=== PATIENT | female | born 1930 | race African-American/Black ===

== ENCOUNTER 2016-03-24 16:12 | Observation (INO) | payer OTHER ==
[~2016-03-24] VITALS: Ht 165.1 cm; Wt 48.8 kg
[~2016-03-24 16:12] MED LIST: ATOR40TA16 PO; CEPH-460 PO; CITA20TA4 PO; COUM2.5T PO; ENOX60P SQ; MIRTA15 PO
[2016-03-24 16:19] VITALS: BP 136/65; PULSE 90; RESP 18; TEMP 97.4; O2SAT 92
[2016-03-24] MEDS ORDERED: SODIUM CHLOR 0.9% 1000 ML INJ 1,000 ML IV SCH (16:21)
[2016-03-24] MEDS ORDERED: SODIUM CHLORIDE 0.9% FLUSH 5 ML FLUSH IVF PRN (16:30)
--- NOTE | 2016-03-24 16:48 | PD ---
HPI Chief Complaint: General Weakness Time Seen by Provider: 16:21 Travel History International Travel<30 days: No Contact w/Intl Traveler<30days: No Traveled to known affect area: No History of Present Illness HPI Patient is an 85-year-old female who presents to emergency room from hospice for medical evaluation of altered mental status. As per patient's family, patient was initially on hospice as patient was decompensating, was complaining of right wrist and right hip pain, reports that she was only given months to live but family concerned that patient is dehydrated and is living in pain and has increased altered mental status. Family reports that they were told that patient has a right wrist fracture as well as a right hip fracture which are inoperable at this time, reports that they were told that patient is too frail for surgical intervention. Reports that they are concerned as patient is rapidly decompensating in hospice, reports they "keep her sedated and that was not called for hospice." Family rescinding patient's hospice at this time, requested that everything be done for patient, requests that patient's DNR/DNI code status be respected. Reports concern as patient is very dehydrated and is not eating at this time. Reports that pt appears lethargic. Reports concern that patient was ambulating last week and now is bedbound. 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 As per medical records, patient was admitted to hospice since December 19, 2015 as she had been slowly declining. Reports that she eventually began hallucinating and had a near fall at home and since her son was having trouble caring for her, she was admitted to by [facility] on January 23, 2016 for management of symptoms. Patient returned to home on January 28, 2016 1 at that time she began to have increased right-sided weakness with pain to her right leg and right wrist. Patient had become nonambulatory at that time and was transferred to the care center (March 12 2016) for further management. Upon further review of records, hospice physician did talk to patient's son, Juan Manuel, as son concerned for pain to wrist and right femur. Hospice physician did review that patient most likely has a fracture to her right wrist which has been splinted appropriately, reports that she may also have a femur fracture which patient most likely is too frail to undergo any surgical intervention for this. Family this time would like to revoke hospice, request that patient be worked up for her hip pain and wrist pain. Would like to discuss with physicians if there are any surgical interventions that can be performed to make patient more comfortable. PFSH Past Medical History Hx Anticoagulant Therapy: Yes Arthritis: Yes Anxiety: No Depression: No Heart Rhythm Problems: No Cancer: No Cardiovascular Problems: Yes (HTN) High Cholesterol: Yes Chest Pain: No Congestive Heart Failure: No Cerebrovascular Accident: No Diabetes: Yes Patient Takes Glucophage: No Endocrine: Yes Gastrointestinal Disorders: No Genitourinary: No Headaches: No Hypertension: Yes Immune Disorder: No Implanted Vascular Access Dvce: No Musculoskeletal: Yes Neurologic: Yes Psychiatric: No Reproductive: No Respiratory: No Immunizations Current: Yes Migraines: No Seizures: No Thyroid Disease: No Triglycerides - High: Yes Past Surgical History Abdominal Surgery: Yes (appendectomy) Appendectomy: Yes Cardiac Surgery: No Ear Surgery: No Endocrine Surgery: No Eye Surgery: No Genitourinary Surgery: No Gynecologic Surgery: No Neurologic Surgery: No Oral Surgery: No Thoracic Surgery: No Other Surgery: Yes Social History Alcohol Use: No Tobacco Use: No Substance Use: No Allergies-Medications (Allergen,Severity, Reaction): Coded Allergies: Codeine (Verified Allergy, Severe, 12/18/15) Hydrocodone (Verified Allergy, Severe, 12/18/15) Lisinopril (Verified Allergy, Severe, ANGIOEDEMA, 12/18/15) Reported Meds & Prescriptions Reported Meds & Active Scripts Active Reported Sennosides 8.6 Mg Tab 8.6 Mg PO HS Warfarin 7.5 Mg Tab 7.5 Mg PO DAILY mon, fri Warfarin 5 Mg Tab 5 Mg PO DAILY sun, tu, wed, thur, sat Haloperidol 0.5 Mg Tab 0.25 Mg PO Q8HR Dicyclomine (Dicyclomine HCl) 10 Mg Cap 10 Mg PO QID Mirtazapine 15 Mg Tab 15 Mg PO HS Citalopram (Citalopram Hydrobromide) 20 Mg Tab 20 Mg PO DAILY Review of Systems ROS Limitations: Altered Mental Status Physical Exam Exam Limitations: Altered Mental Status, Poor Historian Narrative GENERAL: moderate distress SKIN: Warm and dry. HEAD: Atraumatic. Normocephalic. EYES: Pupils equal and round. No scleral icterus. No injection or drainage. ENT: No nasal bleeding or discharge. Mucous membranes dry and tacky NECK: Trachea midline. No JVD. CARDIOVASCULAR: Regular rate and rhythm. No murmur appreciated. RESPIRATORY: No accessory muscle use. Clear to auscultation. Breath sounds equal bilaterally. GASTROINTESTINAL: Abdomen soft, non-tender, nondistended. Hepatic and splenic margins not palpable. MUSCULOSKELETAL: No clubbing. No cyanosis. Patient with pain to right wrist, patient with pain with range of motion to right hip NEUROLOGICAL: Patient alert to person, overall confused PSYCHIATRIC: Patient confused Data Data Last Documented VS Vital Signs Date Time Temp Pulse Resp B/P Pulse Ox O2 Delivery O2 Flow Rate FiO2 03/24/16 16:55 90 Room Air 03/24/16 16:19 97.4 90 18 136/65 Orders Complete Blood Count With Diff (03/24/16 16:21) Comprehensive Metabolic Panel (03/24/16 16:21) Prothrombin Time / Inr (Pt) (03/24/16 16:21) Act Partial Throm Time (Ptt) (03/24/16 16:21) Urinalysis - C+S If Indicated (03/24/16 16:21) Iv Access Insert/Monitor (03/24/16 16:21) Ecg Monitoring (03/24/16 16:21) Oximetry (03/24/16 16:21) Sodium Chlor 0.9% 1000 Ml Inj (Ns 1000 M (03/24/16 16:21) Sodium Chloride 0.9% Flush (Ns Flush) (03/24/16 16:30) Electrocardiogram (03/24/16 16:21) B-Type Natriuretic Peptide (03/24/16 16:26) Hip, Uni(Ap&Lat) Wo Ap Pelvis (03/24/16 ) Femur (Ap & Lat/2vws) (03/24/16 ) Wrist, Complete ([id number]) (03/24/16 ) Ckmb (Isoenzyme) Profile (03/24/16 16:21) Troponin I (03/24/16 16:21) Chest, Single Ap (03/24/16 17:06) Urine Culture (03/24/16 16:45) Ct Brain W/O Iv Contrast(Rout) (03/24/16 17:30) Ceftriaxone Inj (Rocephin Inj) (03/24/16 17:45) Labs Laboratory Tests Test 03/24/16 03/24/16 16:45 16:47 Urine Collection Type CATH Urine Color YELLOW Urine Turbidity CLOUDY Urine pH 5.0 Urine Specific [place] 1.021 Urine Protein TRACE mg/dL Urine Glucose (UA) NEG mg/dL Urine Ketones NEG mg/dL Urine Occult Blood NEG Urine Nitrite NEG Urine Bilirubin NEG Urine Leukocyte Esterase NEG Urine WBC 3-5 /hpf Urine WBC Clumps RARE Urine Squamous Epithelial >8 /hpf Cells Urine Amorphous Sediment FEW Urine Bacteria FEW /hpf Urine Hyaline Casts 50-100 /lpf Urine Mucus FEW /lpf Microscopic Urinalysis Comment CULTURE INDICATED White Blood Count 12.9 TH/MM3 Red Blood Count 4.25 MIL/MM3 Hemoglobin 11.8 GM/DL Hematocrit 35.3 % Mean Corpuscular Volume 83.0 FL Mean Corpuscular Hemoglobin 27.8 PG Mean Corpuscular Hemoglobin 33.5 % Concent Red Cell Distribution Width 16.1 % Platelet Count 264 TH/MM3 Mean Platelet Volume 7.9 FL Neutrophils (%) (Auto) 70.1 % Lymphocytes (%) (Auto) 19.6 % Monocytes (%) (Auto) 6.8 % Eosinophils (%) (Auto) 0.9 % Basophils (%) (Auto) 2.6 % Neutrophils # (Auto) 9.1 TH/MM3 Lymphocytes # (Auto) 2.5 TH/MM3 Monocytes # (Auto) 0.9 TH/MM3 Eosinophils # (Auto) 0.1 TH/MM3 Basophils # (Auto) 0.3 TH/MM3 CBC Comment DIFF FINAL Differential Comment Prothrombin Time 20.5 SEC Prothromb Time International 1.8 RATIO Ratio Activated Partial 42.9 SEC Thromboplast Time Sodium Level 137 MEQ/L Potassium Level 4.6 MEQ/L Chloride Level 102 MEQ/L Carbon Dioxide Level 24.2 MEQ/L Anion Gap 11 MEQ/L Blood Urea Nitrogen 28 MG/DL Creatinine 1.10 MG/DL Estimat Glomerular Filtration 57 ML/MIN Rate Random Glucose 88 MG/DL Calcium Level 9.1 MG/DL Total Bilirubin 0.3 MG/DL Aspartate Amino Transf 15 U/L (AST/SGOT) Alanine Aminotransferase 12 U/L (ALT/SGPT) Alkaline Phosphatase 88 U/L Total Creatine Kinase 50 U/L Troponin I LESS THAN 0.02 NG/ML B-Type Natriuretic Peptide 14 PG/ML Total Protein 7.8 GM/DL Albumin 2.5 GM/DL MDM Medical Decision Making Medical Screen Exam Complete: Yes Emergency Medical Condition: Yes Interpretation(s) EKG at 1629: NSR at 89bpm, no st or t wave changes Differential Diagnosis PE, DVT, electrolyte abnormality, pneumonia, ACS, arrhythmia, wrist fracture, hip fracture, failure to thrive, pneumonia, DVT, intracranial hemorrhage, dehydration Narrative Course Patient is a 85-year-old female who was brought to the emergency room from hospice for evaluation of altered mental status. Patient's sons are revoking patient's hospice status, would like full workup for change in mental status. Request the patient remain a DNR/DNI status. Patient unable to provide history of present illness at this time, patient only complains of pain to her right hip. EKG ordered, patient was placed on a cardiac rehabilitation program director upon arrival to the emergency room. Labs as well as IV fluids ordered for patient as patient does appear dehydrated. X-rays of patient's right wrist and hip ordered for evaluation of possible fracture. case reviewed with Dr. Baron who accepts pt to service Diagnosis Primary Impression: Encephalopathy Additional Impressions: Failure to thrive in adult Dehydration UTI (urinary tract infection) Qualified Code: N30.01 - Acute cystitis with hematuria Gait instability Admitting Information Admitting Physician Requests: Chelsea Luna DO Mar 24, 2016 16:48
[2016-03-24 16:55] VITALS: O2SAT 90
[2016-03-24] MEDS ORDERED: WARF-23 PO (16:55)
[2016-03-24] MEDS ORDERED: HALO0.5T PO (16:55)
[2016-03-24] MEDS ORDERED: SENN8.6T81 PO (16:55)
[2016-03-24] MEDS ORDERED: WARF-21 PO (16:55)
[2016-03-24] MEDS ORDERED: DICY10CA12 PO (16:55)
[2016-03-24 16:58] LABS: AUTOMATED NEUTROPHIL # 9.1 TH/MM3 (1.8-7.7); BASOPHIL # 0.3 TH/MM3 (0-0.2); BASOPHIL % 2.6 % (0.0-2.0); EOSINOPHIL # 0.1 TH/MM3 (0-0.4); EOSINOPHIL % 0.9 % (0.0-4.0); HEMATOCRIT 35.3 % (35.0-46.0); HEMO FLAGS DIFF FINAL; LYMPH % 19.6 % (9.0-44.0); LYMPHOCYTE # 2.5 TH/MM3 (1.0-4.8); MEAN CORPUSCULAR HEMOGLOBIN 27.8 PG (27.0-34.0); MEAN CORPUSCULAR HGB CONC 33.5 % (32.0-36.0); MONO % 6.8 % (0.0-8.0); NEUT % 70.1 % (16.0-70.0); PLATELET COUNT 264 TH/MM3 (150-450); RED BLOOD COUNT 4.25 MIL/MM3 (4.00-5.30); RED CELL DISTRIBUTION WIDTH 16.1 % (11.6-17.2); WHITE BLOOD COUNT 12.9 TH/MM3 (4.0-11.0)
[2016-03-24 16:59] LABS: BLOOD, URINE NEG (NEG); GLUCOSE,URINE NEG (NEG); KETONE, URINE NEG (NEG); NITRITE,URINE NEG (NEG)
[2016-03-24 17:09] LABS: CHLORIDE 102 MEQ/L (98-107); POTASSIUM 4.6 MEQ/L (3.5-5.1); SODIUM (NA) 137 MEQ/L (136-145)
[2016-03-24 17:12] LABS: ANION GAP 11 MEQ/L (5-15); BICARBONATE 24.2 MEQ/L (21.0-32.0)
[2016-03-24 17:13] LABS: BLOOD UREA NITROGEN 28 MG/DL (7-18)
[2016-03-24 17:14] LABS: APTT (PATIENT) 42.9 SEC (24.3-30.1); INTERNATIONAL NORMALIZED RATIO 1.8 RATIO; PROTHROMBIN TIME - PATIENT 20.5 SEC (9.8-11.6)
[2016-03-24 17:15] LABS: ALT (GPT) 12 U/L (10-53); AST (GOT) 15 U/L (15-37)
[2016-03-24 17:16] LABS: GLOMERULAR FILTRATION RATE 57 ML/MIN (>89)
[2016-03-24 17:17] LABS: TOTAL BILIRUBIN ADULT 0.3 MG/DL (0.2-1.0)
[2016-03-24 17:18] LABS: METHOD OF COLLECTION CATH; URINE COLOR YELLOW (YELLW/STRAW)
[2016-03-24 17:18] LABS: ALKALINE PHOSPHATASE 88 U/L (45-117)
[2016-03-24 17:19] LABS: HYALINE CAST, URINE 50-100 /lpf (RARE); MUCUS URINE FEW /lpf (OCC)
[2016-03-24 17:20] LABS: CREATINE KINASE 50 U/L (26-192)
[2016-03-24 17:20] LABS: BACTERIA, URINE FEW /hpf; SQUAMOUS EPITHELIAL CELL URINE >8 /hpf (0-5)
[2016-03-24 17:21] LABS: COMMENT (UR) CULTURE INDICATED; CULTURE IF INDICATED CULTURE INDICATED
--- NOTE | 2016-03-24 17:34 | RADHPO ---
EXAM DATE/TIME: 03/24/2016 17:01 [facility] COMPARISON: No previous studies available for comparison. INDICATIONS : Right wrist pain after falling last week. MEDICAL HISTORY : Cardiovascular disease. Hypertension. Diabetes mellitus type 2. SURGICAL HISTORY : None. ENCOUNTER: Initial ACUITY: 1 week PAIN SCORE: 10/10 LOCATION: Right wrist. FINDINGS: AP, lateral and oblique views of the right wrist were obtained and demonstrate diffuse degenerative c hange involving the metacarpal carpal joint and intercarpal joints with sclerosis and narrowing. 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 There is no definite acute fracture o r malalignment. CONCLUSION: 1. No acute fracture or malalignment. 2. Diffuse degenerative changes and postsurgical change. Jay Engel MD on March 24, 2016 at 17:31 Board Certified Radiologist. This report was verified electronically.
--- NOTE | 2016-03-24 17:35 | RADHPO ---
EXAM DATE/TIME: 03/24/2016 17:05 [facility] COMPARISON: No previous studies available for comparison. INDICATIONS : Right hip pain after falling 1 week ago. MEDICAL HISTORY : Cardiovascular disease. Hypertension. Diabetes mellitus type 2. SURGICAL HISTORY : None. ENCOUNTER: Initial ACUITY: 1 week PAIN SCORE: 10/10 LOCATION: Right hip. FINDINGS: Two view examination of the right femur demonstrates no evidence of fracture or dislocation. Bony mi neralization is normal. There are mild degenerative changes in the medial and lateral compartments of the knee. The soft tissue structures are intact. CONCLUSION: 1. No acute fracture or malalignment. 2. Degenerative changes in the knee. Jay Engel MD on March 24, 2016 at 17:33 Board Certified Radiologist. This report was verified electronically.
[2016-03-24] MEDS ORDERED: cefTRIAXone INJ 1,000 MG in SODIUM CHLORIDE 0.9% INJ 100 ML IV ONE (17:45)
--- NOTE | 2016-03-24 17:52 | RADHPO ---
EXAM DATE/TIME: 03/24/2016 17:05 [facility] COMPARISON: FEMUR RIGHT (AP & LAT/2VWS), March 24, 2016, 17:05. INDICATIONS : Right hip pain after falling 1 week ago. MEDICAL HISTORY : Cardiovascular disease. Hypertension. Diabetes mellitus type 2. SURGICAL HISTORY : None. ENCOUNTER: Initial ACUITY: 1 week PAIN SCORE: 10/10 LOCATION: Right hip. FINDINGS: Oblique views of the right femur were obtained and demonstrate no definite fracture or malalignment. The acetabular and pubic rami are intact in appearance. There is diffuse osteopenia. CONCLUSION: Osteopenia with no evidence of acute fracture. Jay Engel MD on March 24, 2016 at 17:50 Board Certified Radiologist. This report was verified electronically.
--- NOTE | 2016-03-24 17:54 | RADHPO ---
EXAM DATE/TIME: 03/24/2016 17:34 [facility] COMPARISON: CHEST SINGLE AP, December 14, 2015, 19:19. INDICATIONS : Congestion for a week. MEDICAL HISTORY : Cardiovascular disease. Hypertension. Diabetes mellitus type 2. SURGICAL HISTORY : None. ENCOUNTER: Initial ACUITY: 1 week PAIN SCORE: 10/10 LOCATION: Bilateral chest FINDINGS: A single view of the chest demonstrates the lungs to be symmetrically aerated without evidence of mas s, infiltrate or effusion. The cardiomediastinal contours are unremarkable. Osseous structures are intact. A loop recorder is again projected over the left side of the chest. CONCLUSION: No acute disease. There is no evidence of pneumonia. Jay Engel MD on March 24, 2016 at 17:52 Board Certified Radiologist. This report was verified electronically.
[2016-03-24] MEDS ORDERED: hydrALAZINE HCL 20 MG/ML VIAL IV PUSH ONE (18:15)
[2016-03-24] MEDS ORDERED: NALOXONE HCL 0.4 MG/ML AMP IV PRN (18:30)
[2016-03-24] MEDS ORDERED: ACETAMINOPHEN 325 MG TAB PO PRN (18:30)
[2016-03-24] MEDS ORDERED: SODIUM CHLORIDE 0.9% FLUSH 5 ML FLUSH FLUSH PRN (18:30)
[2016-03-24] MEDS ORDERED: MORPHINE SULFATE 4 MG/ML INJ IV PRN (18:30)
[2016-03-24 19:00] VITALS: BP 119/57; PULSE 92; RESP 18; O2SAT 95
--- NOTE | 2016-03-24 19:03 | RADHPO ---
EXAM DATE/TIME: 03/24/2016 18:24 [facility] COMPARISON: CT BRAIN W/O CONTRAST, December 18, 2015, 1:35. INDICATIONS : Altered mental status. Weakness. RADIATION DOSE: 40.16 CTDIvol (mGy) MEDICAL HISTORY : Hypertension. Diabetes mellitus type 2. SURGICAL HISTORY : None. ENCOUNTER: Initial ACUITY: 1 day PAIN SCALE: 1/10 LOCATION: cranial TECHNIQUE: Multiple contiguous axial images were obtained of the head. Using automated exposure control and adj ustment of the mA and/or kV according to patient size, radiation dose was kept as low as reasonably a chievable to obtain optimal diagnostic quality images. FINDINGS: CEREBRUM: The ventricles are normal for age. No evidence of midline shift, mass lesion, hemorrhage or acute in farction. No extra-axial fluid collections are seen. There is decreased density in the cerebral whit e matter. POSTERIOR FOSSA: The cerebellum and brainstem are intact. The 4th ventricle is midline. The cerebellopontine angle i s unremarkable. EXTRACRANIAL: The visualized portion of the orbits is intact. There is mucosal disease of the maxillary sinuses roni aterally being worse on the left. SKULL: The calvaria is intact. No evidence of skull fracture. CONCLUSION: 1. No acute intracranial abnormality seen. 2. Suspected small vessel ischemic change in the white matter. 3. Maxillary sinus disease. Lavon Dean MD on March 24, 2016 at 18:59 Board Certified Radiologist. This report was verified electronically.
[2016-03-24] MEDS: SODIUM CHLORIDE 0.9% FLUSH 5 ML FLUSH FLUSH SCH (21:00)
[2016-03-24] MEDS: SODIUM CHLOR 0.9% 1000 ML INJ 1,000 ML IV SCH (21:23)
[2016-03-24] MEDS: LEVOFLOXACIN 750 MG PREMIX INJ 150 ML IV SCH (21:23)
[2016-03-24] MEDS: DOCUSATE SODIUM 100 MG CAP PO SCH (21:24)
[2016-03-24] MEDS: ENOXAPARIN SODIUM 40 MG/0.4 ML SYRINGE SQ SCH (21:24)
[2016-03-24 21:30] VITALS: BP 116/61; PULSE 94; RESP 18; O2SAT 95
[2016-03-24 22:50] VITALS: BP 116/64; PULSE 92; RESP 18; O2SAT 95
[2016-03-24 23:00] VITALS: BP 107/64; PULSE 95; RESP 26; TEMP 98.9; O2SAT 100
[2016-03-24] MEDS: MIRTAZAPINE 15 MG TAB PO SCH (23:35)
[2016-03-25 04:00] VITALS: BP 121/66; PULSE 86; RESP 20; TEMP 99.1; O2SAT 100
[2016-03-25 06:02] VITALS: PULSE 86
[2016-03-25 06:48] LABS: AUTOMATED NEUTROPHIL # 7.8 TH/MM3 (1.8-7.7); BASOPHIL # 0.2 TH/MM3 (0-0.2); BASOPHIL % 1.5 % (0.0-2.0); EOSINOPHIL # 0.1 TH/MM3 (0-0.4); EOSINOPHIL % 1.2 % (0.0-4.0); HEMO FLAGS DIFF FINAL; LYMPH % 16.2 % (9.0-44.0); LYMPHOCYTE # 1.7 TH/MM3 (1.0-4.8); MEAN CELL VOLUME 83.8 FL (80.0-100.0); MEAN CORPUSCULAR HEMOGLOBIN 27.9 PG (27.0-34.0); MEAN CORPUSCULAR HGB CONC 33.3 % (32.0-36.0); NEUT % 73.1 % (16.0-70.0); PLATELET COUNT 222 TH/MM3 (150-450); RED BLOOD COUNT 3.69 MIL/MM3 (4.00-5.30); RED CELL DISTRIBUTION WIDTH 15.8 % (11.6-17.2); WHITE BLOOD COUNT 10.6 TH/MM3 (4.0-11.0)
[2016-03-25 06:52] LABS: POTASSIUM 4.2 MEQ/L (3.5-5.1)
[2016-03-25 06:54] LABS: INTERNATIONAL NORMALIZED RATIO 2.3 RATIO; PROTHROMBIN TIME - PATIENT 26.4 SEC (9.8-11.6)
[2016-03-25 06:55] LABS: BICARBONATE 23.8 MEQ/L (21.0-32.0)
[2016-03-25 08:00] VITALS: BP 143/49; PULSE 88; RESP 17; TEMP 97.6; O2SAT 100
[2016-03-25] MEDS: CITALOPRAM HYDROBROMIDE 20 MG TAB PO SCH (09:30)
[2016-03-25] MEDS: DOCUSATE SODIUM 100 MG CAP PO SCH ×2 (09:30→21:32)
[2016-03-25] MEDS: SODIUM CHLORIDE 0.9% FLUSH 5 ML FLUSH FLUSH SCH ×2 (09:31→21:00)
[2016-03-25] MEDS: ENOXAPARIN SODIUM 40 MG/0.4 ML SYRINGE SQ SCH (09:31)
[2016-03-25] MEDS: SODIUM CHLOR 0.9% 1000 ML INJ 1,000 ML IV SCH ×2 (09:31→21:40)
[2016-03-25 12:00] VITALS: BP 136/62; PULSE 83; RESP 16; TEMP 98.1; O2SAT 98
--- NOTE | 2016-03-25 12:56 | PD.CONS ---
Consult Service Palliative Care . Consult Requested By Dr. Baron . Primary Care Physician No Primary Care Physician . Reason for Consultation a. To assist with evaluation and management of symptoms including: leg pain ; arm pain; delirium b. To assist medical decision maker(s) with: better understanding of current medical conditions; weighing benefits/burdens of medical treatment options; making medical treatment decisions. . HPI History of Present Illness Ms. 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 Ms. Benitez had been functioning at a fairly high level and was primarily independent up until August 2015. She was admitted to [facility] that month and found to have bilateral lower extremity cellulitis, lower extremity DVTs, sepsis, and acute renal failure. Since August 2015, the patient also had multiple admissions and emergency department visits secondary to syncopal episodes of uncertain etiology, dizziness, and falls without significant accompanying injuries. On 11/18/15 she was diagnosed with a pulmonary embolus. On emergency department visit of 12/18/15 for presyncope, she was diagnosed with the urinary tract infection and sent home the same day. The following day, on 12/19/15 she was enrolled with [facility] hospice. The patient has been declining slowly since hospice enrollment. Because of her history of DVTs and pulmonary embolus she had been on Coumadin. This was challenging to titrate. More recently she began hallucinatingshe would see rats and bugs and water on the ceiling. She had some near falls and her son, Juan Manuel, who is her primary caregiver, was having increasing trouble caring for her. On 01/23/16 she was admitted to the [facility]. Symptoms were managed there and she was returned back to her home on 01/28/16. On 03/22/16, the patient's son returned home to find the patient sitting on the edge of the bed as if she had fallen and was trying get back into the bed. She appeared to have some right sided weakness and complained of pain in her right wrist and in her right lower extremity. She had become nonambulatory because of the level of pain. Prior to this she had been able to ambulate with a cane and holding onto the andre. It was felt she must have fallen. The pain was severe enough that the tramadol she had been using to control pain at home was no longer adequate. When hospice was notified they offered to arrange for transportation to the emergency department to undergo imaging and further evaluation. Juan Manuel declined the offer . As she was now having difficulty manage pain, it was offered to move her to a hospice care Center. This offer was accepted. She was transferred back to the [facility]. Options for workup and treatment were discussed with the patient's sonJuan Manuel. Juan Manuel was told that the patient might have sustained fractures to both the lower extremity and the upper extremity. He was told that she was probably too frail to undergo and successfully recover from surgical repair. The hospice physician let him know that if the focus were to be on comfort care, she could remain in the care center until pain was managed. Once symptoms were controlled , she could be returned home, but she would probably not be ambulatory again. Juan Manuel agreed to keep her in the Care Center. The patient had a palliative performance score of 30 on admission to the care center. She was awake and verbal. Unfortunately she was quite painful with any touching of the right upper and lower extremity and would cry out with repositioning. She subsequently became agitated and would grimace and moan in anticipation of any movement. With the emphasis being on comfort, it was decided to premedicate her prior to major repositioning. A full right wrist splint was ordered and placed. The patient appeared far more comfortable on 03/24/16 but PPS had declined to 20. As movement was so painful for her, the patient's son Juan Manuel gave permission to insert a Corado catheter. On 03/24/16 the patient son Alex visited the patient in the Care Center as well as multiple other family members.. Alex also spoke with the hospice doctor. Alex did not understand what hospice was about and felt that his brother Juan Manuel had not explained this to him. Alex expressed concerns that the patient was painful and not eating enough. He was very concerned that she was being allowed to . Other family members arrived and all ultimately agreed that the patient should revoke hospice and go to the hospital for further evaluation and possibly aggressive care. Juan Manuel agreed and she was sent to the [place] [facility]. She arrived in the ED at 1612. In the care center, the patient was on no scheduled sedating medications. She received 5-10 of oxycodone q 4 hours prn. Initial vital signs in the emergency department were as follows: Temperature 97.4; pulse 90; respiratory rate 18; blood pressure 136/65; pulse oximetry 92% on room air Physical examination by the emergency repair department supervisor revealed the following: Patient was in moderate distress. The patient appeared painful in the right wrist and with range of motion of the right hip. The patient was also confused. The exam was otherwise unremarkable. Initial diagnostic testing revealed the following: * CBC showed WBC 12.9; hemoglobin 11.8; platelet count 264 * Urinalysis showed 3-5 wbc's; rare clumps of WBCs; few bacteria; 50-100 hyaline casts. * Coagulation profile showed PT 20.5; INR 1.8; PTT 42.9 * Chemistry panel showed sodium 137; potassium 4.6; chloride 102; CO2 24.2; anion gap 11; BUN 28; creatinine 1.1; GFR 57; glucose 88; calcium 9.1 * Liver function testing showed total bilirubin 0.3; AST 15; ALT 12; alkaline phosphatase 88; total protein 7.8; albumin 2.5 * Cardiac serology showed total CK 50; troponin less than 0.02. * Right wrist x-ray showed no acute fracture or malalignment. Diffuse degenerative changes and postsurgical changes were noted. * Right hip x-ray showed osteopenia but no evidence of acute fracture. * Right femur x-ray showed no acute fracture or malalignment. Degenerative changes were noted in the knee. * Chest x-ray showed no acute disease. There was no evidence of pneumonia. * Head CT showed no acute intracranial abnormality. Small vessel ischemic changes were noted. There was also evidence of maxillary sinus disease. * Electrocardiogram shows normal sinus rhythm with a rate of 89. No significant ST-T wave changes. Since arrival at the emergency department the patient has been started on levofloxacin to treat a possible urinary tract infection. IV morphine is available for pain control but has not been used so far. She is being maintained on her warfarin. At time of my visit, the patient is quite lethargic. She will start to voice and exam but not awaken and open her eyes. She nodded yes when I asked if any of her family had visited. She would quickly drift off if not constantly engaged. She couldn't provide essentially no history. . Function/Cognitive Trajectory As noted above, patient has been under hospice care primarily at her home since December 2015. She has had a major decline since August 2015 when she initially had bilateral lower extremity cellulitis and DVTs. . Review of Systems ROS Limitations: Clinical Condition (patient is too lethargic to provide her own history. No family members currently available. Review of systems taken as well as possible from existing medical records.) Constitutional: COMPLAINS OF: Pain, Generalized weakness, DENIES: Fever, Dizziness Endocrine: DENIES: Polydipsia, Polyuria, Polyphagia Eyes: COMPLAINS OF: Vision loss (wears glasses) Ears, nose, mouth, throat: DENIES: Hearing loss, Oral lesions Respiratory: DENIES: Hemoptysis Cardiovascular: COMPLAINS OF: Syncope (multiple episodes of near syncope of unknown etiology), DENIES: Chest pain, Palpitations Musculoskeletal: COMPLAINS OF: Joint pain, DENIES: Neck pain Neurologic: COMPLAINS OF: Abnormal gait, DENIES: Headache, Paresthesias, Seizures Psychiatric: COMPLAINS OF: Depression, DENIES: Anxiety Other ROS: * Wears dentures * Falls Past Family Social History Coded Allergies: Codeine (Verified Allergy, Severe, STATES SWELLING, 03/24/16) Hydrocodone (Verified Allergy, Severe, SWELLING, 03/24/16) Lisinopril (Verified Allergy, Severe, ANGIOEDEMA, 12/18/15) Past Medical History * Recurrent syncope and presyncope of uncertain etiology * Hypercoagulable state -- patient has had both bilateral lower extremity DVTs in 08/2015 and a pulmonary embolus and 11/18/2015 * Urinary tract infections * Irritable bowel syndrome * Osteoarthritis * Hypertension * Type 2 diabetes mellitus * GERD * Stage III chronic kidney disease * Depression * Hyperlipidemia . Past Surgical History * Appendectomy * Bilateral wrist surgery . Reported Medications Prehospitalization medications in the hospice care center facility were as follows: * Citalopram 20 mg tablets; one by mouth daily * Dicyclomine 10 mg tablet; one by mouth 4 times daily * Haloperidol 0.5 mg tablet; one by mouth every 8 hours [id number] and 1- 2 mg by mouth every 4 hours as needed for agitation and hallucinations * Mirtazapine 15 mg tablet 1 by mouth at bedtime * Coumadin 5 mg daily except Wednesday and Wednesday when she takes 7.5 mg. * Senna S 2 tablets by mouth at bedtime scheduled and 1-2 by mouth daily as needed for constipation * Lorazepam 0.5-1 mg by mouth every 4 hours as needed for anxiety shortness of breath * Oxycodone 5-10 mg by mouth every 4 hours when necessary pain shortness of breath . Current Medications Medications (Trade) Dose Ordered Sig/Adrienne Route Start Time Stop Time Status Last Admin (NS 1000 ml Inj) 1,000 ml @ 70 mls/hr [id number] IV 03/24/16 18:19 03/25/16 09:31 (NS Flush) 2 ml UNSCH PRN FLUSH 03/24/16 18:30 (NS Flush) 2 ml BID FLUSH 03/24/16 21:00 03/25/16 09:31 (Tylenol) 650 mg Q4H PRN PO 03/24/16 18:30 (Colace) 100 mg Q12H PO 03/24/16 21:00 03/25/16 09:30 (Morphine Inj) 2 mg Q3H PRN IV 03/24/16 18:30 Naloxone HCl 0.4 mg 0.4 mg UNSCH PRN IV 03/24/16 18:30 Pharmacy Profile Note 0 ml @ 0 mls/hr UNSCH OTHER 03/24/16 18:30 (Levaquin 750 Mg Premix Inj) 150 ml @ 100 mls/hr Q24H IV 03/24/16 20:00 03/24/16 21:23 (CeleXA) 20 mg DAILY PO 03/25/16 09:00 03/25/16 09:30 (Remeron) 15 mg HS PO 03/24/16 21:00 03/24/16 23:35 (Coumadin) 5 mg DAILY@16 PO 03/25/16 16:00 . Family History * Mother of heart disease at age 56 * Health. Father is unknown . Substance Use Tobacco: No history of tobacco abuse Alcohol: No history of alcohol abuse Prescription med abuse: No known prescription drug abuse Illicits: No known use of illicits . Psychosocial History Ms. Benitez is originally from [place], [place]. She has an elementary school education. She is and has 3 sons. 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 She has been living locally with her son (Juan Manuel) and her grandson. . Spiritual/Cultural Factors Patient comes from a Mosque tradition. Cheondoism and spirituality are important to her. She accepted record changer assembler visits from the brimming machine operator. . Durable Power of Mri Supervisor: Copy in medical record Date completed: There is a community "DO NOT RESUSCITATE" order signed on 01/23/2016. There is a Durable Power of Mri Supervisor form signed on 06/06/15 and notarized on the same date. Though this DPOA does not specify health care decision making, it does specify health care decision making, but does give the authority "to make necessary arrangements for my care at any hospital, detention, or assisted living facility and to pay for such care, and to make advance arrangement for any and burial expenses." . Health Care Surrogate(s): No designated health care surrogate. Her DPOA, however is permitted "to make necessary arrangements for my care at any hospital, detention, or assisted living facility and to pay for such care, and to make advance arrangement for any and burial expenses." . Documented care wishes: DPOA for financial/legal affairs is son -- Juan Manuel. No written health care goals /preferences available. . Today's verbally stated goals: Patient is unable to verbally state her own goals and it is uncertain if she will be able to do so in the future. . Family/friends goals: Not available at this time. . Ethical and Legal Issues Patient is currently not capacitated to make her own health care decisions. Her son -- Juan Manuel -- has DPOA for financial and legal affairs and the documents says in entitles him "to make necessary arrangements for my care at any hospital , detention, or assisted living facility and to pay for such care, and to make advance arrangement for any and burial expenses." It does not specifically give him authority to make health care decisions for her. Without a specifically deisgniated surrogate or DPOA for health care , decision making would fall to the majority of the patient's adult children. . . Physical Exam Vital Signs Date Time Temp Pulse Resp B/P Pulse Ox O2 Delivery O2 Flow Rate FiO2 03/25/16 08:00 97.6 88 17 143/49 100 03/25/16 06:02 86 03/25/16 04:00 99.1 86 20 121/66 100 03/24/16 23:00 98.9 95 26 107/64 100 03/24/16 22:51 94 18 95 Nasal Cannula 2 03/24/16 22:50 92 18 116/64 95 03/24/16 21:30 94 18 116/61 95 03/24/16 19:00 92 18 119/57 95 Nasal Cannula 2 03/24/16 16:55 90 Room Air .03/24/16 16:19 97.4 90 18 136/65 92 03/24/16 03/25/16 19:00 07:00 Intake Total 1000 ml 60 ml Balance 1000 ml 60 ml Intake Oral 60 ml IV Total 1000 ml # Voids 2 # Bowel Movements 0 . Exam CONSTITUTIONAL/GENERAL: This is an adequately nourished patient, in no apparent distress. She is lethargic. She doesn't open her eyes for me. She has a few barely intelligible words as I try and speak with her. TUBES/LINES/DRAINS: NC 02; PIV left writs; Splint rodrigo wrist; wears glasses. SKIN: No jaundice, rashes, or lesions. Ecchymoses on upper extremities. No wounds seen anteriorly. Skin temperature appropriate. Not diaphoretic. HEAD: Atraumatic. Normocephalic. EYES: Pupils equal and round and reactive. Extraocular motions intact. No scleral icterus. No injection or drainage. Fundi not examined. ENT: Difficult to assess hearing given her lethargy. Nose without bleeding or purulent drainage. Throat without visible erythema, exudates, masses, or lesions. NECK: Trachea midline. Supple, nontender. No palpable thyroid enlargement or nodularity. CARDIOVASCULAR: Regular rate and rhythm without murmurs, gallops, or rubs. No JVD. Peripheral pulses symmetric. RESPIRATORY/CHEST: Symmetric, unlabored respirations. Clear to auscultation. Breath sounds equal bilaterally. No wheezes, rales, or rhonchi. GASTROINTESTINAL: Abdomen soft, non-tender, nondistended. No hepato-splenomegaly , or palpable masses. No guarding. Bowel sounds present. GENITOURINARY: Without palpable bladder distension. Corado catheter in place. MUSCULOSKELETAL: Extremities without clubbing, cyanosis, or edema. Grimaces and moans if I move right forearm/wrist of right lower extremity. No calf tenderness. No mottling. LYMPHATICS: No palpable cervical or supraclavicular adenopathy. NEUROLOGICAL:Lethargic. Arouses to voice/exam, but does not really open her eyes. Gives some yes/no responses. Speech mostly unintelligible. Motor and sensory grossly within normal limits. Not following commands. Cognitively sharp. Moves all extremities. PSYCHIATRIC: No obvious anxiety/depression. No apparent hallucinations or other psychotic thought process. . Diagnostic Tests Laboratory Laboratory Tests Test 03/24/16 03/24/16 03/25/16 16:45 16:47 06:30 Urine Collection Type CATH Urine Color YELLOW (YELLW/STRAW) Urine Turbidity CLOUDY (CLEAR) Urine pH 5.0 (5.0-8.5) Urine Specific [place] 1.021 (1.002-1.035) Urine Protein TRACE mg/dL (NEG-TRACE) Urine Glucose (UA) NEG mg/dL (NEG) Urine Ketones NEG mg/dL (NEG) Urine Occult Blood NEG (NEG) Urine Nitrite NEG (NEG) Urine Bilirubin NEG (NEG) Urine Leukocyte Esterase NEG (NEG) Urine WBC 3-5 /hpf (0-5) Urine WBC Clumps RARE (NONE) Urine Squamous Epithelial >8 /hpf (0-5) Cells Urine Amorphous Sediment FEW Urine Bacteria FEW /hpf (NONE) Urine Hyaline Casts 50-100 /lpf (RARE) Urine Mucus FEW /lpf (OCC) Microscopic Urinalysis Comment CULTURE INDICATED White Blood Count 12.9 TH/MM3 10.6 TH/MM3 (4.0-11.0) (4.0-11.0) Red Blood Count 4.25 MIL/MM3 3.69 MIL/MM3 (4.00-5.30) (4.00-5.30) Hemoglobin 11.8 GM/DL 10.3 GM/DL (11.6-15.3) (11.6-15.3) Hematocrit 35.3 % 31.0 % (35.0-46.0) (35.0-46.0) Mean Corpuscular Volume 83.0 FL 83.8 FL (80.0-100.0) (80.0-100.0) Mean Corpuscular Hemoglobin 27.8 PG 27.9 PG (27.0-34.0) (27.0-34.0) Mean Corpuscular Hemoglobin 33.5 % 33.3 % Concent (32.0-36.0) (32.0-36.0) Red Cell Distribution Width 16.1 % 15.8 % (11.6-17.2) (11.6-17.2) Platelet Count 264 TH/MM3 222 TH/MM3 (150-450) (150-450) Mean Platelet Volume 7.9 FL 7.6 FL (7.0-11.0) (7.0-11.0) Neutrophils (%) (Auto) 70.1 % 73.1 % (16.0-70.0) (16.0-70.0) Lymphocytes (%) (Auto) 19.6 % 16.2 % (9.0-44.0) (9.0-44.0) Monocytes (%) (Auto) 6.8 % (0.0-8.0) 8.0 % (0.0-8.0) Eosinophils (%) (Auto) 0.9 % (0.0-4.0) 1.2 % (0.0-4.0) Basophils (%) (Auto) 2.6 % (0.0-2.0) 1.5 % (0.0-2.0) Neutrophils # (Auto) 9.1 TH/MM3 7.8 TH/MM3 (1.8-7.7) (1.8-7.7) Lymphocytes # (Auto) 2.5 TH/MM3 1.7 TH/MM3 (1.0-4.8) (1.0-4.8) Monocytes # (Auto) 0.9 TH/MM3 0.8 TH/MM3 (0-0.9) (0-0.9) Eosinophils # (Auto) 0.1 TH/MM3 0.1 TH/MM3 (0-0.4) (0-0.4) Basophils # (Auto) 0.3 TH/MM3 0.2 TH/MM3 (0-0.2) (0-0.2) CBC Comment DIFF FINAL DIFF FINAL Differential Comment Prothrombin Time 20.5 SEC 26.4 SEC (9.8-11.6) (9.8-11.6) Prothromb Time International 1.8 RATIO 2.3 RATIO Ratio Activated Partial 42.9 SEC Thromboplast Time (24.3-30.1) Sodium Level 137 MEQ/L 141 MEQ/L (136-145) (136-145) Potassium Level 4.6 MEQ/L 4.2 MEQ/L (3.5-5.1) (3.5-5.1) Chloride Level 102 MEQ/L 108 MEQ/L (98-107) (98-107) Carbon Dioxide Level 24.2 MEQ/L 23.8 MEQ/L (21.0-32.0) (21.0-32.0) Anion Gap 11 MEQ/L (5-15) 9 MEQ/L (5-15) Blood Urea Nitrogen 28 MG/DL (7-18) 22 MG/DL (7-18) Creatinine 1.10 MG/DL 0.73 MG/DL (0.50-1.00) (0.50-1.00) Estimat Glomerular Filtration 57 ML/MIN (>89) 91 ML/MIN (>89) Rate Random Glucose 88 MG/DL 91 MG/DL (74-106) (74-106) Calcium Level 9.1 MG/DL 8.5 MG/DL (8.5-10.1) (8.5-10.1) Total Bilirubin 0.3 MG/DL (0.2-1.0) Aspartate Amino Transf 15 U/L (15-37) (AST/SGOT) Alanine Aminotransferase 12 U/L (10-53) (ALT/SGPT) Alkaline Phosphatase 88 U/L (45-117) Total Creatine Kinase 50 U/L (26-192) Troponin I LESS THAN 0.02 NG/ML (0.02-0.05) B-Type Natriuretic Peptide 14 PG/ML (0-100) Total Protein 7.8 GM/DL (6.4-8.2) Albumin 2.5 GM/DL (3.4-5.0) . Result Diagram: 03/25/1662903/25/16629 Microbiology Microbiology Date/Time Procedure Status Source Growth 03/24/16 16:45 Urine Culture Received Urine Catheterized Urine Pending Imaging Last Impressions Head CT 03/24/16 1730 Signed Impressions: Service Date/Time: Thursday, March 24, 2016 18:24 - CONCLUSION: 1. No acute intracranial abnormality seen. 2. Suspected small vessel ischemic change in the white matter. 3. Maxillary sinus disease. Lavon Dean MD Chest X-Ray 03/24/16 1706 Signed Impressions: Service Date/Time: Thursday, March 24, 2016 17:34 - CONCLUSION: No acute disease. There is no evidence of pneumonia. Jay Engel MD Wrist X-Ray 03/24/16 0000 Signed Impressions: Service Date/Time: Thursday, March 24, 2016 17:01 - CONCLUSION: 1. No acute fracture or malalignment. 2. Diffuse degenerative changes and postsurgical change. Jay Engel MD Hip X-Ray 03/24/16 0000 Signed Impressions: Service Date/Time: Thursday, March 24, 2016 17:05 - CONCLUSION: Osteopenia with no evidence of acute fracture. Jay Engel MD Femur X-Ray 03/24/16 0000 Signed Impressions: Service Date/Time: Thursday, March 24, 2016 17:05 - CONCLUSION: 1. No acute fracture or malalignment. 2. Degenerative changes in the knee. Jay Engel MD . Patient/Family Conference Present at Family Conference: None Assessment and Plan Disease Oriented Problem List: (1) Pain of right upper extremity Comment: Uncertain etiology. May have fallen. Imaging shows no fracture. Pain is severe enough that just touching it causes moaning/grimacing. (2) Lower extremity pain, right Comment: Uncertain etiology. May have fallen. Imaging shows no fracture. Pain is severe enough that just touching it causes moaning/grimacing. . . (3) Urinary tract infection Comment: Possible UTI. Cutl[place] pending. . 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 Currently on coumadin. . (5) Syncope Comment: History of recurrent syncope of uncertain etiology. . (6) Pre-syncope Comment: History of presyncope of uncertain etiology. . (7) Hypoalbuminemia (8) Hypertension (9) Diabetes mellitus Symptom Scale: (1) Pain of right upper extremity (2) Lower extremity pain, right 0-10 Scale: Unable to quantify (3) Delirium 0-10 Scale: Unable to quantify Pertinent Non-Medical Issues Psychosocial: Patient normally lives with her son Juan Manuel and her grandson. Apparently has good psychosocial support from extended family. Spiritual: Patient is Mosque. Cheondoism and spirituality are important to her. She accepted record changer assembler visits from the brimming machine operator. Legal: Patient has a DURABLE POWER OF DISABILITY MANAGER document. Her sonEileens designated as POA. The document does not specify healthcare decision-making. It does specify that the POA may make arrangements for her to be in hospital, nursing facility, etc. Ethical issues impacting care: Patient is currently incapacitated to make her own health care decisions. It is unclear if she will regain capacity to do so. . Important Contacts * Juan Manuel Benitez (son; financial/legal power of state attorney) [phone]; . Prognosis The patient had very significant decline from August 2015 to the present. The exact cause of this decline is uncertain. She has had multiple hospitalizations and emergency department visits. Her health during this period is been characterized by a hypercoagulable state with bilateral lower extremity DVTs and pulmonary embolus. She is also had recurrent syncope and presyncope of unknown etiology. The patient has been under hospice care since December 2015 and has declined under that care. The cause of the patient's right upper and lower extremity pain is uncertain. It is unclear if she fell. There are no fractures. Apparently there was also some new onset delirium. Workup in the hospital has been rather unremarkable. It is possible she has a urinary tract infection. It is certainly feasible with hydration and treatment of a urinary tract infection, that the patient will become more responsive. However, it is likely that the underlying causes contributing to the patient's decline over the past few months will continue. It is likely that she will continue to be painful. If goals are comfort oriented, I would continue to believe that is likely to come in less than 6 months. I am not certain aggressive care will change that prognosis. . Code Status: No Code Plan == CODE STATUS: No code == Decision-making; the patient is incapacitated currently to make her own health care decisions and it is unclear if she will regain that capacity. Her sonRonniehas legal/financial power of state attorney. The power of state attorney documentation, however, does not specify healthcare decision-making other than the authority to make arrangements for hospital care, detention care, etc. Juan Manuel had been making most of the health care decisions for the patient. Technically if there is no designated surrogate and no designated power of state attorney, healthcare decision-making would fall to the majority of her adult children. We will try and contact the family to better understand where future decisions will be coming from. == Goals medical treatment: Goals medical treatment are now also unclear. Patient had been under hospice care since December 2015 and her goals under the care were comfort oriented. The patient was in a hospice care Center after developing severe pain in the right upper and lower extremities and also having some hallucinations. Once multiple family members met there, a decision was made to seek more aggressive care and to revoke hospice. We will need to find out who the decision-makers are her for healthcare and talk to them so we better understand goals. == Pain; patient has the severe right upper and lower extremity pain. Etiology of this is unknown. No obvious fractures on radiographs. In the hospice care center, the pain did seem to have an element of allodynia and hyperalgesia. This can come sometimes from the opiates themselves. I agree with not scheduling any opiates at this time and watching her PRN needs.. If we do end up needing to schedule opiate analgesia, would consider methadone which is less likely to cause symptoms of opiate toxicity. == Delirium: The patient does indeed have a urinary tract infection, then delirium is likely due to the infection and should improve on antibiotic therapy. As noted above delirium could be due to opiates themselves. Should patient begin having hallucinations again or other signs of delirium, would recommend haloperidol as struggled first choice. Given her age I would recommend about 0.5 mg every 8 hours [id number] and 1-2 mg every 4 hours PRN agitated delirium. == A high priority is identifying decision-makers for this patient and better understanding goals. I will work on this. At any time the decision-makers decide that the most appropriate goals are essentially comfort oriented, patient would be welcome back under hospice care. == If family is hoping that patient will be ambulatory again once the extremity pain is better controlled, she will probably need [facility] work on physical therapy == Palliative care we'll continue to follow to help assist with symptom management and to further clarify goals of care as the case evolves. . Thank you for the opportunity to participate in the care of Ms. Benitez. . . Collaborating MD Comments To help prompt me to consider important information that might be impacting today's encounter and assessment, information from prior notes written by myself or my colleagues may have been "brought forward" into today's note. My signature on this note, however, is an attestation that I personally performed the exam, history, and/or decision-making noted today, and, unless otherwise indicated, the interactions with patient, family, and staff as well as the review of records all occurred today. I also attest that the listed assessment and stated plan reflect my best clinical judgment today based on the combination of historical information, prior notes, and today's exam/ interactions. When time spent is documented, it refers only to time spent today by the signer, or if indicated, combined time spent today by collaborating physician/nurse practitioner. . Attestation To help prompt me to consider important information that might be impacting today's encounter and assessment, information from prior notes written by myself or my colleagues may have been "brought forward" into today's note. My signature on this note, however, is an attestation that I personally performed the exam, history, and/or decision-making noted today, and, unless otherwise indicated, the interactions with patient, family, and staff as well as the review of records all occurred today. I also attest that the listed assessment and stated plan reflect my best clinical judgment today based on the combination of historical information, prior notes, and today's exam/ interactions. When time spent is documented, it refers only to time spent today by the signer, or if indicated, combined time spent today by collaborating physician/nurse practitioner. . Gustavo Serrano MD Mar 25, 2016 12:56
--- NOTE | 2016-03-25 15:24 | HHI.HP ---
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 History was obtained from discussing with the ER physician, as well as with Dr. Serrano who reviewed the hospice notes, as well as with discussion with the patient herself. The patient states that she has been having pain in her upper and lower extremity since the previous week and that she also has pain in her left shoulder and pain when she turns her neck. The patient has been on hospice for some months after multiple hospital visits including syncope/presyncope as well as DVTs and pulmonary embolism from relative immobility, as well as a decline and general weakness with weight loss. Her primary caregiver is her son Juan Manuel with whom she lives. The patient had a visit to the care center over January 2016 but improved and was discharged home. According to the hospice notes the patient was admitted to the hospice of the [facility] last week after the son came home and found her seated at the edge of the bed complaining of a lot of pain and unable to ambulate. At that point hospice had a discussion with the patient and Juan Manuel and it was decided to admit her to the care center. At the care center it was very difficult to control her pain is any slight movement would cause her pain. Apparently yesterday some other family members from out of town came to visit the patient and were concerned with her decreased mentation, not eating or drinking and wanted a workup of why she was having pain in the extremities. The patient was thus brought to the ER where x-rays of the right femur, and hip and right wrist were all negative for fracture. Head CT is negative for acute changes. Chest x-ray was negative for any acute process. Urinalysis was suspicious for infection. This was conveyed to the family by the ER physician. Decision was made for the patient to be admitted to the hospital for evaluation of the extremity pain. She was kept a DO NOT RESUSCITATE. The patient herself states that she has had a cough but denies any dyspnea or fever. She denies any dysuria. She denies knowing of any recent falls. There is currently no family at the bedside. Patient's mentation at this time seems clear. She is able to clearly tell me that she would like to get stronger and she would like to know what is causing the pain including getting a CT scan to evaluate for fracture that may not have been imaged on the x-rays. The patient states that she is comfortable as long as she is not moved. She states she was happy with her care at the [facility]. When I asked the patient regarding her CODE STATUS, the patient stated "I don't know." I explained in detail regarding CPR intubation and stated that at her age after suffering a cardiac event the chance of her having survival to any kind of reasonable neurologic recovery is slim to none. The patient continues to state I don't know" regarding her CODE STATUS. I then explained that if she is not sure she would by default be a full code. The patient stated that she was agreeable to this. 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 Type 2 diabetes Reported Medications Allergies Coded Allergies Type Severity Reaction Last Updated Verified Codeine Allergy Severe STATES SWELLING 03/24/16 Yes Hydrocodone Allergy Severe SWELLING 03/24/16 Yes Lisinopril Allergy Severe ANGIOEDEMA 12/18/15 Yes Active Scripts Medications Dose Route/Sig Days Date Category Dose Instructions Sennosides 8.6 Mg Tab 8.6 Mg PO HS 03/24/16 Reported Warfarin 7.5 Mg Tab 7.5 Mg PO DAILY 03/24/16 Reported mon, fri Warfarin 5 Mg Tab 5 Mg PO DAILY 03/24/16 Reported sun, tues, wed, th, sat Haloperidol 0.5 Mg Tab 0.25 Mg PO Q8HR 03/24/16 Reported Dicyclomine (Dicyclomine HCl) 10 Mg Cap 10 Mg PO QID 03/24/16 Reported Mirtazapine 15 Mg Tab 15 Mg PO HS 12/14/15 Reported Citalopram (Citalopram Hydrobromide) 20 Mg Tab 20 Mg PO DAILY 12/14/15 Reported Allergies: Coded Allergies: Codeine (Verified Allergy, Severe, STATES SWELLING, 03/24/16) Hydrocodone (Verified Allergy, Severe, SWELLING, 03/24/16) Lisinopril (Verified Allergy, Severe, ANGIOEDEMA, 12/18/15) Family History Reviewed and noncontributory Social History No alcohol tobacco or drug use Physical Exam Vital Signs Vital Signs Date Time Temp Pulse Resp B/P Pulse Ox O2 Delivery O2 Flow Rate FiO2 03/25/16 12:00 98.1 83 16 136/62 98 03/25/16 08:00 97.6 88 17 143/49 100 03/25/16 06:02 86 03/25/16 04:00 99.1 86 20 121/66 100 03/24/16 23:00 98.9 95 26 107/64 100 03/24/16 22:51 94 18 95 Nasal Cannula 2 03/24/16 22:50 92 18 116/64 95 03/24/16 21:30 94 18 116/61 95 03/24/16 19:00 92 18 119/57 95 Nasal Cannula 2 03/24/16 16:55 90 Room Air 03/24/16 16:19 97.4 90 18 136/65 92 Physical Exam GENERAL: Well-nourished, well-developed frail elderly female patient. SKIN: Warm and dry. HEAD: Normocephalic. EYES: No scleral icterus. No injection or drainage. NECK: Supple, trachea midline. No JVD or lymphadenopathy. CARDIOVASCULAR: Regular rate and rhythm without murmurs, gallops, or rubs. RESPIRATORY: Breath sounds equal bilaterally. No accessory muscle use. GASTROINTESTINAL: Abdomen soft, non-tender, nondistended. EXTREMITIES: She has trace edema of the right wrist. She is tender to palpation over the wrist and bilateral lower extremities. She is able to very weakly wiggle her toes and fingers for me. NEUROLOGICAL: Awake, alert, and oriented to place. The patient is not able to tell me the month accurately thinking it is February and could not recall the year however cognition seems clear. Nonfocal although neuro exam limited secondary to pain with movement. Laboratory Laboratory Tests Test 03/24/16 03/24/16 03/25/16 16:45 16:47 06:30 Urine Collection Type CATH Urine Color YELLOW Urine Turbidity CLOUDY Urine pH 5.0 Urine Specific [place] 1.021 Urine Protein TRACE Urine Glucose (UA) NEG Urine Ketones NEG Urine Occult Blood NEG Urine Nitrite NEG Urine Bilirubin NEG Urine Leukocyte Esterase NEG Urine WBC 3-5 Urine WBC Clumps RARE Urine Squamous Epithelial >8 Cells Urine Amorphous Sediment FEW Urine Bacteria FEW Urine Hyaline Casts 50-100 Urine Mucus FEW Microscopic Urinalysis Comment CULTURE INDICATED White Blood Count 12.9 10.6 Red Blood Count 4.25 3.69 Hemoglobin 11.8 10.3 Hematocrit 35.3 31.0 Mean Corpuscular Volume 83.0 83.8 Mean Corpuscular Hemoglobin 27.8 27.9 Mean Corpuscular Hemoglobin 33.5 33.3 Concent Red Cell Distribution Width 16.1 15.8 Platelet Count 264 222 Mean Platelet Volume 7.9 7.6 Neutrophils (%) (Auto) 70.1 73.1 Lymphocytes (%) (Auto) 19.6 16.2 Monocytes (%) (Auto) 6.8 8.0 Eosinophils (%) (Auto) 0.9 1.2 Basophils (%) (Auto) 2.6 1.5 Neutrophils # (Auto) 9.1 7.8 Lymphocytes # (Auto) 2.5 1.7 Monocytes # (Auto) 0.9 0.8 Eosinophils # (Auto) 0.1 0.1 Basophils # (Auto) 0.3 0.2 CBC Comment DIFF FINAL DIFF FINAL Differential Comment Prothrombin Time 20.5 26.4 Prothromb Time International 1.8 2.3 Ratio Activated Partial 42.9 Thromboplast Time Sodium Level 137 141 Potassium Level 4.6 4.2 Chloride Level 102 108 Carbon Dioxide Level 24.2 23.8 Anion Gap 11 9 Blood Urea Nitrogen 28 22 Creatinine 1.10 0.73 Estimat Glomerular Filtration 57 91 Rate Random Glucose 88 91 Calcium Level 9.1 8.5 Total Bilirubin 0.3 Aspartate Amino Transf 15 (AST/SGOT) Alanine Aminotransferase 12 (ALT/SGPT) Alkaline Phosphatase 88 Total Creatine Kinase 50 Troponin I LESS THAN 0.02 B-Type Natriuretic Peptide 14 Total Protein 7.8 Albumin 2.5 Date/Time Procedure Status Source Growth 03/24/16 16:45 Urine Culture - Preliminary Resulted Urine Catheterized Urine IMMATURE GROWTH - REINCUBATE Result Diagram: 03/25/16 0630 03/25/16 0630 Imaging Last Impressions Head CT 03/24/16 1730 Signed Impressions: Service Date/Time: Thursday, March 24, 2016 18:24 - CONCLUSION: 1. No acute intracranial abnormality seen. 2. Suspected small vessel ischemic change in the white matter. 3. Maxillary sinus disease. Lavon Dean MD Chest X-Ray 03/24/16 1706 Signed Impressions: Service Date/Time: Thursday, March 24, 2016 17:34 - CONCLUSION: No acute disease. There is no evidence of pneumonia. Jay Engel MD Wrist X-Ray 03/24/16 0000 Signed Impressions: Service Date/Time: Thursday, March 24, 2016 17:01 - CONCLUSION: 1. No acute fracture or malalignment. 2. Diffuse degenerative changes and postsurgical change. Jay Engel MD Hip X-Ray 03/24/16 0000 Signed Impressions: Service Date/Time: Thursday, March 24, 2016 17:05 - CONCLUSION: Osteopenia with no evidence of acute fracture. Jay Engel MD Femur X-Ray 03/24/16 0000 Signed Impressions: Service Date/Time: Thursday, March 24, 2016 17:05 - CONCLUSION: 1. No acute fracture or malalignment. 2. Degenerative changes in the knee. Jay Engel MD Assessment and Plan Assessment and Plan -Generalized pain -->Pain in the right lower extremity, right upper extremity, neck, left shoulder. No recent fall or trauma to explain the symptoms. x-rays of the right femur, and hip and right wrist were all negative for fracture. She does have trace edema of the right wrist and I will order a CT to rule out occult fracture. The patient states she does not have pain when she is not moved. -Acute encephalopathy secondary to pain medications, now resolved. Appears clear and competent to make her decisions. Holding sedating medications at this time until further goals of care can be elicited. -Pulmonary embolism with pulmonary infarct, DVT in the past year on Coumadin - continue Coumadin -Failure to thrive with weight loss and general weakness - was on hospice and I suspect due to her generalized pain and overall decline that she is not a rehabilitation candidate at a correction facility. The patient hopes that we will find something that is reversible and that she will be able to get stronger and get out of bed however she was unable to tolerate even passive range of motion with PT today. Continue Celexa and Remeron. Palliative care has been consulted to help assist with clarifying goals of care. I discussed the patient with Dr. Serrano. -Possible UTI. Follow-up urine culture and continue Levaquin. - Hypertension - currently normotensive will monitor blood pressure. -Osteoarthritis -Acute kidney injury, now resolved with IV fluids. 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 However glucose normal. With very little by mouth intake. Will hold off on sliding scale insulin for comfort. -CODE STATUS FULL CODE. The patient was not able to tell me what her CODE STATUS was despite signing DO NOT RESUSCITATE forms in the past. She stated "I don't know." The patient currently has goals of care wanting to find something reversible and get stronger and get out of bed. I explained in detail regarding CPR intubation and stated that at her age after suffering a cardiac event the chance of her having survival to any kind of reasonable neurologic recovery is slim to none. The patient continues to state I don't know" regarding her CODE STATUS. I then explained that if she is not sure she would by default be a full code. The patient stated that she was agreeable to this. The patient's status was changed from DO NOT RESUSCITATE to full code. Shanna Baron MD Mar 25, 2016 15:24
[2016-03-25 16:00] VITALS: BP 128/71; PULSE 79; RESP 17; TEMP 97.8; O2SAT 99
[2016-03-25] MEDS: WARFARIN SOD 5 MG TAB PO SCH (17:31)
[2016-03-25 20:00] VITALS: BP 140/58; PULSE 89; RESP 20; TEMP 98.2; O2SAT 100
[2016-03-25] MEDS: MIRTAZAPINE 15 MG TAB PO SCH (21:32)
[2016-03-25] MEDS: LEVOFLOXACIN 750 MG PREMIX INJ 150 ML IV SCH (21:33)
--- NOTE | 2016-03-25 23:03 | EKG ---
Date Performed: 03/24/2016 Time Performed: 16:29:04 PTAGE: 85 years EKG: Sinus rhythm Normal ECG PREVIOUS TRACING : 12/18/2015 02.02 DOCTOR: Theo Caba Interpretating Date/Time 03/25/2016 22:58:32
[2016-03-26] VITALS: BP 138/70; PULSE 90; RESP 20; TEMP 99.5; O2SAT 100
[2016-03-26] MEDS: DOCUSATE SODIUM 100 MG CAP PO SCH ×2 (09:00→22:16)
[2016-03-26] MEDS: CITALOPRAM HYDROBROMIDE 20 MG TAB PO SCH (09:00)
[2016-03-26] MEDS: SODIUM CHLORIDE 0.9% FLUSH 5 ML FLUSH FLUSH SCH ×2 (09:00→22:16)
[2016-03-26] MEDS ORDERED: ACETAMINOPHEN/HYDROcodone 325 MG/5 MG TAB PO PRN (10:00)
[2016-03-26 10:53] LABS: POTASSIUM 3.7 MEQ/L (3.5-5.1)
[2016-03-26 10:56] LABS: INTERNATIONAL NORMALIZED RATIO 2.7 RATIO; PROTHROMBIN TIME - PATIENT 31.3 SEC (9.8-11.6)
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
[2016-03-26] MEDS ORDERED: DEXAMETHASONE SOD PHOS 4 MG/ML VIAL IV PUSH ONE (11:15)
[2016-03-26] MEDS ORDERED: ACET325T PO (13:19)
--- NOTE | 2016-03-26 15:12 | HHI.HCPN ---
Reason for visit a. To assist with evaluation and management of symptoms including: leg pain ; arm pain; delirium b. To assist medical decision maker(s) with: better understanding of current medical conditions; weighing benefits/burdens of medical treatment options; making medical treatment decisions. . Subjective/Interval History On my arrival, patient is awake but clearly frightened. She tells me she doesn' t know where she is and tells me her son must be worried about her. I tried to reassure her and explain where she was and why, but she remained suspicious and ill at ease. She reports feeling sore "all over. She continues to have "bad pain" with movement or pressure in the right forearm or right proximal lower leg. Patient denies SOB. She says she has no appetite. Patient asked me to call he son. I called for her and there was no answer. Patient was quite clear that she wanted her son Juan Manuel to make her health care decisions if she is unable to do so. She said, "I have arranged for all that." I have spoken with Dr. Baron. Patient is being converted to PO antibiotics/ steroids/analgesics. Plan will be for discharge to snf which was son't request last night. Case management is awaiting authorization from [facility] for discharge to [facility]. Tmax 99.5; Other VS stable. INR 2.7. Chem WNL except Cl 108, BS 120. No new imaging. . Family/friend interactions No family at bedside. No answer when I attempted to call her son -- Juan Manuel. . Advance Directives Durable Power of Cardiovascular Invasive Specialist: Copy in medical record Advance Directive Specifics Date completed: There is a community "DO NOT RESUSCITATE" order signed on 01/23/2016. There is a Durable Power of Cardiovascular Invasive Specialist form signed on 06/06/15 and notarized on the same date. Though this DPOA does not specify health care decision making, it does specify health care decision making, but does give the authority "to make necessary arrangements for my care at any hospital, skilled nursing, or assisted living facility and to pay for such care, and to make advance arrangement for any and burial expenses." . Health Care Surrogate(s): No designated health care surrogate. Her DPOA, however is permitted "to make necessary arrangements for my care at any hospital, skilled nursing, or assisted living facility and to pay for such care, and to make advance arrangement for any and burial expenses." . Documented care wishes: DPOA for financial/legal affairs is son -- Juan Manuel. No written health care goals /preferences available. . Objective Vital Signs Date Time Temp Pulse Resp B/P Pulse Ox O2 Delivery O2 Flow Rate FiO2 03/26/16 00:00 99.5 90 20 138/70 100 03/25/16 20:00 98.2 89 20 140/58 100 Automatic Cuff 03/25/16 16:00 97.8 79 17 128/71 99 Intake & Output 03/26/16 03/26/16 07:00 19:00 Intake Total 824 ml Balance 824 ml Intake Oral 60 ml IV Total 764 ml # Voids 3 2 # Bowel Movements 0 . Physical Exam CONSTITUTIONAL/GENERAL: This is an adequately nourished patient. She appears quite frightened and anxious. She is awake and alert. She is able to tell me her son's phone number. TUBES/LINES/DRAINS: NC 02; peripheral IV; Splint rodrigo wrist; wears glasses. SKIN: No jaundice, rashes, or lesions. No wounds seen anteriorly. Skin temperature appropriate. Not diaphoretic. HEAD: Atraumatic. Normocephalic. EYES: Pupils equal and round. Extraocular motions intact. No scleral icterus. No injection or drainage. Fundi not examined. ENT: Appears to hear me fine. Nose without bleeding or purulent drainage. Throat without visible erythema, exudates, masses, or lesions. NECK: Trachea midline. Supple, CARDIOVASCULAR: Regular rate and rhythm without murmurs, gallops, or rubs. No JVD. Peripheral pulses symmetric. RESPIRATORY/CHEST: Symmetric, unlabored respirations. Clear to auscultation. Breath sounds equal bilaterally. No wheezes, rales, or rhonchi. GASTROINTESTINAL: Abdomen soft, non-tender, nondistended. No hepato-splenomegaly , or palpable masses. No guarding. Bowel sounds present. GENITOURINARY: Without palpable bladder distension. MUSCULOSKELETAL: Extremities without clubbing, cyanosis, or edema. Grimaces and moans if I move right forearm/wrist of right lower extremity. Greatest tendnerness is over proximal femur. No calf tenderness. No mottling. LYMPHATICS: Not examined. NEUROLOGICAL:Awake, alert, conversant. Able to tell me her son's phone number. Unsure how she ended up in the hospital and upset about it. PSYCHIATRIC: Frightened and anxious as she does not know how she ended up in the hospital and thinks her son must be looking for her. No apparent hallucinations or other delusions. . Diagnostic Tests Laboratory Laboratory Tests Test 03/24/16 03/24/16 03/25/16 03/26/16 16:45 16:47 06:30 10:35 Urine Collection Type CATH Urine Color YELLOW (YELLW/STRAW) Urine Turbidity CLOUDY (CLEAR) Urine pH 5.0 (5.0-8.5) Urine Specific [place] 1.021 (1.002-1.035) Urine Protein TRACE mg/dL (NEG-TRACE) Urine Glucose (UA) NEG mg/dL (NEG) Urine Ketones NEG mg/dL (NEG) Urine Occult Blood NEG (NEG) Urine Nitrite NEG (NEG) Urine Bilirubin NEG (NEG) Urine Leukocyte Esterase NEG (NEG) Urine WBC 3-5 /hpf (0-5) Urine WBC Clumps RARE (NONE) Urine Squamous Epithelial >8 /hpf (0-5) Cells Urine Amorphous Sediment FEW Urine Bacteria FEW /hpf (NONE) Urine Hyaline Casts 50-100 /lpf (RARE) Urine Mucus FEW /lpf (OCC) Microscopic Urinalysis Comment CULTURE INDICATED White Blood Count 12.9 TH/MM3 10.6 TH/MM3 (4.0-11.0) (4.0-11.0) Red Blood Count 4.25 MIL/MM3 3.69 MIL/MM3 (4.00-5.30) (4.00-5.30) Hemoglobin 11.8 GM/DL 10.3 GM/DL (11.6-15.3) (11.6-15.3) Hematocrit 35.3 % 31.0 % (35.0-46.0) (35.0-46.0) Mean Corpuscular Volume 83.0 FL 83.8 FL (80.0-100.0) (80.0-100.0) Mean Corpuscular Hemoglobin 27.8 PG 27.9 PG (27.0-34.0) (27.0-34.0) Mean Corpuscular Hemoglobin 33.5 % 33.3 % Concent (32.0-36.0) (32.0-36.0) Red Cell Distribution Width 16.1 % 15.8 % (11.6-17.2) (11.6-17.2) Platelet Count 264 TH/MM3 222 TH/MM3 (150-450) (150-450) Mean Platelet Volume 7.9 FL 7.6 FL (7.0-11.0) (7.0-11.0) Neutrophils (%) (Auto) 70.1 % 73.1 % (16.0-70.0) (16.0-70.0) Lymphocytes (%) (Auto) 19.6 % 16.2 % (9.0-44.0) (9.0-44.0) Monocytes (%) (Auto) 6.8 % (0.0-8.0) 8.0 % (0.0-8.0) Eosinophils (%) (Auto) 0.9 % (0.0-4.0) 1.2 % (0.0-4.0) Basophils (%) (Auto) 2.6 % (0.0-2.0) 1.5 % (0.0-2.0) Neutrophils # (Auto) 9.1 TH/MM3 7.8 TH/MM3 (1.8-7.7) (1.8-7.7) Lymphocytes # (Auto) 2.5 TH/MM3 1.7 TH/MM3 (1.0-4.8) (1.0-4.8) Monocytes # (Auto) 0.9 TH/MM3 0.8 TH/MM3 (0-0.9) (0-0.9) Eosinophils # (Auto) 0.1 TH/MM3 0.1 TH/MM3 (0-0.4) (0-0.4) Basophils # (Auto) 0.3 TH/MM3 0.2 TH/MM3 (0-0.2) (0-0.2) CBC Comment DIFF FINAL DIFF FINAL Differential Comment Prothrombin Time 20.5 SEC 26.4 SEC 31.3 SEC (9.8-11.6) (9.8-11.6) (9.8-11.6) Prothromb Time International 1.8 RATIO 2.3 RATIO 2.7 RATIO Ratio Activated Partial 42.9 SEC Thromboplast Time (24.3-30.1) Sodium Level 137 MEQ/L 141 MEQ/L 141 MEQ/L (136-145) (136-145) (136-145) Potassium Level 4.6 MEQ/L 4.2 MEQ/L 3.7 MEQ/L (3.5-5.1) (3.5-5.1) (3.5-5.1) Chloride Level 102 MEQ/L 108 MEQ/L 108 MEQ/L (98-107) (98-107) (98-107) Carbon Dioxide Level 24.2 MEQ/L 23.8 MEQ/L 24.0 MEQ/L (21.0-32.0) (21.0-32.0) (21.0-32.0) Anion Gap 11 MEQ/L (5-15) 9 MEQ/L (5-15) 9 MEQ/L (5-15) Blood Urea Nitrogen 28 MG/DL (7-18) 22 MG/DL (7-18) 11 MG/DL (7-18) Creatinine 1.10 MG/DL 0.73 MG/DL 0.68 MG/DL (0.50-1.00) (0.50-1.00) (0.50-1.00) Estimat Glomerular Filtration 57 ML/MIN (>89) 91 ML/MIN (>89) 99 ML/MIN (>89) Rate Random Glucose 88 MG/DL 91 MG/DL 120 MG/DL (74-106) (74-106) (74-106) Calcium Level 9.1 MG/DL 8.5 MG/DL 9.1 MG/DL (8.5-10.1) (8.5-10.1) (8.5-10.1) Total Bilirubin 0.3 MG/DL (0.2-1.0) Aspartate Amino Transf 15 U/L (15-37) (AST/SGOT) Alanine Aminotransferase 12 U/L (10-53) (ALT/SGPT) Alkaline Phosphatase 88 U/L (45-117) Total Creatine Kinase 50 U/L (26-192) Troponin I LESS THAN 0.02 NG/ML (0.02-0.05) B-Type Natriuretic Peptide 14 PG/ML (0-100) Total Protein 7.8 GM/DL (6.4-8.2) Albumin 2.5 GM/DL (3.4-5.0) . Result Diagram: 03/25/16 0630 03/26/16 1035 Microbiology Microbiology Date/Time Procedure Status Source Growth 03/24/16 16:45 Urine Culture - Final Complete Urine Catheterized Urine 50-100,000 CFU/ML MIXED GRAM POSITIVE... Imaging Last Impressions Head CT 03/24/16 1730 Signed Impressions: Service Date/Time: Thursday, March 24, 2016 18:24 - CONCLUSION: 1. No acute intracranial abnormality seen. 2. Suspected small vessel ischemic change in the white matter. 3. Maxillary sinus disease. Lavon Dean MD Chest X-Ray 03/24/16 1706 Signed Impressions: Service Date/Time: Thursday, March 24, 2016 17:34 - CONCLUSION: No acute disease. There is no evidence of pneumonia. Jay Engel MD Wrist X-Ray 03/24/16 0000 Signed Impressions: Service Date/Time: Thursday, March 24, 2016 17:01 - CONCLUSION: 1. No acute fracture or malalignment. 2. Diffuse degenerative changes and postsurgical change. Jay Engel MD Hip X-Ray 03/24/16 0000 Signed Impressions: Service Date/Time: Thursday, March 24, 2016 17:05 - CONCLUSION: Osteopenia with no evidence of acute fracture. Jay Engel MD Femur X-Ray 03/24/16 0000 Signed Impressions: Service Date/Time: Thursday, March 24, 2016 17:05 - CONCLUSION: 1. No acute fracture or malalignment. 2. Degenerative changes in the knee. Jay Engel MD . Assessment and Plan Disease Oriented Problem List: (1) Pain of right upper extremity Comment: Uncertain etiology. May have fallen. Imaging shows no fracture. Pain is severe enough that just touching it causes moaning/grimacing. (2) Lower extremity pain, right Comment: Uncertain etiology. May have fallen. Imaging shows no fracture. Pain is severe enough that just touching it causes moaning/grimacing. . . (3) Urinary tract infection Comment: Possible UTI. Cutlure pending. . 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 Currently on coumadin. . (5) Syncope Comment: History of recurrent syncope of uncertain etiology. . (6) Pre-syncope Comment: History of presyncope of uncertain etiology. . (7) Hypoalbuminemia (8) Hypertension (9) Diabetes mellitus Symptom Scale: (1) Pain of right upper extremity 0-10 Scale: Unable to quantify Comment: Not bothersome when left alone. Pain is severe when moved. Etiology unclear. . (2) Lower extremity pain, right 0-10 Scale: Unable to quantify Comment: Not bothersome when left alone. Pain is severe when moved. Etiology unclear. . (3) Delirium 0-10 Scale: Unable to quantify Comment: Probably multi-factorial. The patient appears to have a UTI which may be contributing. Also now in an unfamiliar environment. . Pertinent Non-Medical Issues Psychosocial: Patient normally lives with her son Juan Manuel and her grandson. Apparently has good psychosocial support from extended family. Spiritual: Patient is Gnosticism. Synagogue and spirituality are important to her. She accepted editorial assistant visits from the proofer apprentice. Legal: Patient has a DURABLE POWER OF AEROGRAPHER document. Her sonRonsamanthas designated as POA. The document does not specify healthcare decision-making. It does specify that the POA may make arrangements for her to be in hospital, nursing facility, etc. Patient has verbally told me she wants Juan Manuel Benitez to make her health care decisions if she is unable. Ethical issues impacting care: Patient is currently incapacitated to make her own health care decisions. It is unclear if she will regain capacity to do so. . Important Contacts * Juan Manuel Benitez (son; financial/legal power of admitted attorneys) [phone]; [phone] . Prognosis The patient had very significant decline from August 2015 to the present. The exact cause of this decline is uncertain. She has had multiple hospitalizations and emergency department visits. Her health during this period is been characterized by a hypercoagulable state with bilateral lower extremity DVTs and pulmonary embolus. She is also had recurrent syncope and presyncope of unknown etiology. The patient has been under hospice care since December 2015 and has declined under that care. The cause of the patient's right upper and lower extremity pain is uncertain. It is unclear if she fell. There are no fractures. Apparently there was also some new onset delirium. Workup in the hospital has been rather unremarkable. It is possible she has a urinary tract infection. It is certainly feasible with hydration and treatment of a urinary tract infection, that the patient will become more responsive. However, it is likely that the underlying causes contributing to the patient's decline over the past few months will continue. It is likely that she will continue to be painful. If goals are comfort oriented, I would continue to believe that is likely to come in less than 6 months. I am not certain aggressive care will change that prognosis. . Code Status: No Code Plan == CODE STATUS: No code == Decision-making; the patient is incapacitated currently to make her own health care decisions but she appears to be re-gaining capacity. Her son Karlaas legal/financial power of admitted attorneys. The power of admitted attorneys documentation, however, does not specify healthcare decision-making other than the authority to make arrangements for hospital care, skilled nursing care, etc. the patient has indicated that she wants Juan Manuel to make health care decisions as well. Juan Manuel had been making most of the health care decisions for the patient. == Goals medical treatment: Goals medical treatment were initially unclear. Patient had been under hospice care since December 2015 and her goals under the care were comfort oriented. The patient was in a hospice care Center after developing severe pain in the right upper and lower extremities and also having some hallucinations. Once multiple family members met there, a decision was made to seek more aggressive care and to revoke hospice. After speaking with son, Juan Manuel, he is quite clear that goals are aggressive short of resuscitation. He wants everything done to diagnose, treat, and prolong life. He does NOT want her on hospice upon discharge. == Pain; patient has the severe right upper and lower extremity pain. Etiology of this is unknown. No obvious fractures on radiographs. In the hospice care center, the pain did seem to have an element of allodynia and hyperalgesia. This can come sometimes from the opiates themselves but is now persisting off opiates. I agree with not scheduling any opiates at this time and watching her PRN needs. If pain persists at current levels , she may deserve repeat imaging to see if there might be visible callus formation at what might have been previously invisible small fracture sites. == Delirium: The patient does indeed have a urinary tract infection. Delirium is improving on antibiotics. Delirum probably also exacerbated by changing care environments -- home to care center to hospital. As noted above delirium could be due to opiates themselves. Should patient begin having hallucinations again or other signs of delirium, would recommend haloperidol as first choice. Given her age I would recommend about 0.5 mg every 8 hours around -the-clock and 1-2 mg every 4 hours PRN agitated delirium. == Though patient has verbally designated her son Juan Manuel as her health care surrogate, it would be good to get this in writing as soon as she is able to do so. In the meantime, we can accept her verbal designation. == Disposition: Juan Manuel is asking for skilled rehab. Case management is working on this. == Palliative care we'll continue to follow to help assist with symptom management and to further clarify goals of care as the case evolves. . Attestation To help prompt me to consider important information that might be impacting today's encounter and assessment, information from prior notes written by myself or my colleagues may have been "brought forward" into today's note. My signature on this note, however, is an attestation that I personally performed the exam, history, and/or decision-making noted today, and, unless otherwise indicated, the interactions with patient, family, and staff as well as the review of records all occurred today. I also attest that the listed assessment and stated plan reflect my best clinical judgment today based on the combination of historical information, prior notes, and today's exam/ interactions. When time spent is documented, it refers only to time spent today by the signer, or if indicated, combined time spent today by collaborating physician/nurse practitioner. . Gustavo Serrano MD Mar 26, 2016 15:12
[2016-03-26] MEDS: WARFARIN SOD 5 MG TAB PO SCH (16:00)
[2016-03-26 20:00] VITALS: BP 115/59; PULSE 79; PULSE 86; RESP 20; TEMP 99; O2SAT 98
[2016-03-26] MEDS: MIRTAZAPINE 15 MG TAB PO SCH (22:16)
[2016-03-26] MEDS: CEFUROXIME AXETIL 250 MG TAB PO SCH (22:16)
[2016-03-27] VITALS: BP 94/63; PULSE 79; RESP 20; TEMP 99.2; O2SAT 100
[2016-03-27 04:00] VITALS: BP 159/85; PULSE 95; RESP 20; TEMP 98.1; O2SAT 100
[2016-03-27 07:36] LABS: INTERNATIONAL NORMALIZED RATIO 2.5 RATIO; PROTHROMBIN TIME - PATIENT 29.2 SEC (9.8-11.6)
[2016-03-27 08:11] VITALS: BP 157/81; PULSE 78; RESP 18; TEMP 97.9; O2SAT 98
[2016-03-27] MEDS: CITALOPRAM HYDROBROMIDE 20 MG TAB PO SCH (09:00)
[2016-03-27] MEDS: SODIUM CHLORIDE 0.9% FLUSH 5 ML FLUSH FLUSH SCH ×2 (09:00→21:10)
[2016-03-27] MEDS: CEFUROXIME AXETIL 250 MG TAB PO SCH ×2 (09:00→21:09)
[2016-03-27] MEDS: DOCUSATE SODIUM 100 MG CAP PO SCH ×2 (09:00→21:09)
--- NOTE | 2016-03-27 15:14 | HHI.PR ---
Subjective Remarks The patient feels much improved today, the pain in her body has eased greatly. She was able to participate with physical therapy and get up to chair. She is in bright spirits today. Objective Vitals Vital Signs Date Time Temp Pulse Resp B/P Pulse Ox O2 Delivery O2 Flow Rate FiO2 03/27/16 08:11 97.9 78 18 157/81 98 03/27/16 04:00 98.1 95 20 159/85 100 Manual Cuff/Auscultation 03/27/16 00:00 99.2 79 20 94/63 100 03/26/16 20:00 79 03/26/16 20:00 99.0 86 20 115/59 98 I/O 03/26/16 03/26/16 03/26/16 03/27/16 03/27/16 03/27/16 07:00 15:00 23:00 07:00 15:00 23:00 Intake Total 764 ml 60 ml 0 ml 250 ml Balance 764 ml 60 ml 0 ml 250 ml Intake Oral 60 ml 250 ml IV Total 764 ml 0 ml 0 ml # Voids 2 2 1 2 2 # Bowel Movements 0 0 0 Result Diagram: 03/25/16 0630 03/26/16 1035 Objective Remarks GENERAL: Well-nourished, well-developed frail elderly female patient. SKIN: Warm and dry. HEAD: Normocephalic. EYES: No scleral icterus. No injection or drainage. NECK: Supple, trachea midline. No JVD or lymphadenopathy. CARDIOVASCULAR: Regular rate and rhythm without murmurs, gallops, or rubs. RESPIRATORY: Breath sounds equal bilaterally. No accessory muscle use. GASTROINTESTINAL: Abdomen soft, non-tender, nondistended. EXTREMITIES: She has trace edema of the right wrist. She is tender to palpation over the wrists b/l, and bilateral lower extremities. She is able to very weakly wiggle her toes and fingers for me. NEUROLOGICAL: Awake, alert, and oriented to place. cognition clear. Nonfocal although neuro exam limited secondary to pain with movement. A/P Assessment and Plan -Generalized pain --> seems to have resolved. initially pain was more on the right side then became generalized including both wrists, shoulder, bilateral lower legs. She may have some osteoarthritis. I did give her Decadron IV yesterday. Her total CK was not elevated. She is physically deconditioned and initially was not able to participate with physical therapy due to her pain. However today she was able to participate physical therapy and get up to chair. -Acute encephalopathy secondary to pain medications, now resolved. Appears clear and competent to make her decisions. 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 We are trying to get her into a nursing facility at this time. -Depression. Continue Celexa and Remeron. -Possible UTI. Urine culture with 10-50,000 mixed gram-positive colony forming units, probably contaminants. DC antibiotics. - Hypertension - currently normotensive will monitor blood pressure. -Acute kidney injury, now resolved with IV fluids. 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 However glucose normal. -CODE STATUS - DO NOT RESUSCITATE. Discharge Planning [facility] facility when arrangements made. Shanna Baron MD Mar 27, 2016 15:14
[2016-03-27 16:11] VITALS: BP 139/82; PULSE 81; RESP 18; TEMP 97.6; O2SAT 97
[2016-03-27] MEDS: WARFARIN SOD 5 MG TAB PO SCH (17:24)
[2016-03-27 20:01] VITALS: BP 158/83; PULSE 61; RESP 14; TEMP 98.1; O2SAT 97
[2016-03-27] MEDS: MIRTAZAPINE 15 MG TAB PO SCH (21:09)
[2016-03-28 00:01] VITALS: BP 139/71; PULSE 88; RESP 14; TEMP 98.1; O2SAT 95
[2016-03-28 08:13] LABS: INTERNATIONAL NORMALIZED RATIO 2.7 RATIO; PROTHROMBIN TIME - PATIENT 31.4 SEC (9.8-11.6)
[2016-03-28] MEDS: CITALOPRAM HYDROBROMIDE 20 MG TAB PO SCH (08:23)
[2016-03-28] MEDS: CEFUROXIME AXETIL 250 MG TAB PO SCH ×2 (08:23→19:52)
[2016-03-28] MEDS: DOCUSATE SODIUM 100 MG CAP PO SCH ×2 (08:23→19:52)
[2016-03-28] MEDS: SODIUM CHLORIDE 0.9% FLUSH 5 ML FLUSH FLUSH SCH ×2 (08:27→19:52)
[2016-03-28 08:52] VITALS: BP 88/68; PULSE 72; RESP 15; TEMP 97.3
[2016-03-28] MEDS ORDERED: SODIUM CHLOR 0.9% 250 ML INJ 250 ML IV ONE (10:45)
[2016-03-28 12:00] VITALS: BP 133/72; PULSE 65; RESP 20; TEMP 97.7; O2SAT 96
--- NOTE | 2016-03-28 13:40 | HHI.PR ---
Subjective Remarks Patient is doing well. She does have one episode of hypotension this morning which was asymptomatic. She states that her pain continues to improve daily. Is mainly located in her wrists bilaterally. Objective Vitals Vital Signs Date Time Temp Pulse Resp B/P Pulse Ox O2 Delivery O2 Flow Rate FiO2 03/28/16 08:52 97.3 72 15 88/68 03/28/16 04:09 03/28/16 00:01 98.1 88 14 139/71 95 03/27/16 20:01 98.1 61 14 158/83 97 03/27/16 16:11 97.6 81 18 139/82 97 I/O 03/27/16 03/27/16 03/27/16 03/28/16 03/28/16 03/28/16 07:00 15:00 23:00 07:00 15:00 23:00 Intake Total 0 ml 250 ml 320 ml Balance 0 ml 250 ml 320 ml Intake Oral 250 ml 320 ml IV Total 0 ml # Voids 2 2 0 1 # Bowel Movements 0 Result Diagram: 03/25/16 0630 03/26/16 1035 Objective Remarks GENERAL: Well-nourished, well-developed frail elderly female patient. SKIN: Warm and dry. HEAD: Normocephalic. EYES: No scleral icterus. No injection or drainage. NECK: Supple, trachea midline. No JVD or lymphadenopathy. CARDIOVASCULAR: Regular rate and rhythm without murmurs, gallops, or rubs. RESPIRATORY: Breath sounds equal bilaterally. No accessory muscle use. GASTROINTESTINAL: Abdomen soft, non-tender, nondistended. EXTREMITIES: She has trace edema of the right wrist. NEUROLOGICAL: Awake, alert, and oriented to place. cognition clear. Nonfocal. A/P Assessment and Plan -Generalized pain --> seems to have resolved. initially pain was more on the right side then became generalized including both wrists, shoulder, bilateral lower legs. She may have some osteoarthritis. I did give her Decadron IV yesterday. Her total CK was not elevated. She is physically deconditioned and initially was not able to participate with physical therapy due to her pain. However today she was able to participate physical therapy and get up to chair. -Acute encephalopathy secondary to pain medications, now resolved. Appears clear and competent to make her decisions. 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 We are trying to get her into a nursing facility at this time. -Depression. Continue Celexa and Remeron. -Possible UTI. Urine culture with 10-50,000 mixed gram-positive colony forming units, probably contaminants. DC antibiotics. - Hypertension - currently normotensive will monitor blood pressure. -Hypotension 1 this morning. We'll bolus 250 mL Anas and monitor blood pressure. -Acute kidney injury, now resolved with IV fluids. 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 However glucose normal. -CODE STATUS - DO NOT RESUSCITATE. Discharge Planning nursing facility when arrangements made. Shanna Baron MD Mar 28, 2016 13:40
[2016-03-28 16:00] VITALS: BP 131/76; PULSE 72; RESP 20; TEMP 97.6; O2SAT 97
[2016-03-28] MEDS: POLYETHYLENE GLYCOL 17 GM PKG PO PRN (17:11)
[2016-03-28] MEDS: WARFARIN SOD 5 MG TAB PO SCH (17:11)
[2016-03-28] MEDS: MIRTAZAPINE 15 MG TAB PO SCH (19:52)
[2016-03-28] MEDS: DOCUSATE SODIUM 50 MG/SENNA 8.6 MG TAB PO SCH (19:52)
[2016-03-28 20:01] VITALS: BP 153/84; PULSE 88; RESP 14; TEMP 99.1; O2SAT 96
[2016-03-29 00:23] VITALS: BP 140/66; PULSE 80; RESP 14; TEMP 98.9; O2SAT 94
[2016-03-29 07:00] LABS: AUTOMATED NEUTROPHIL # 7.5 TH/MM3 (1.8-7.7); BASOPHIL # 0.2 TH/MM3 (0-0.2); BASOPHIL % 1.9 % (0.0-2.0); EOSINOPHIL # 0.3 TH/MM3 (0-0.4); EOSINOPHIL % 2.6 % (0.0-4.0); HEMATOCRIT 36.9 % (35.0-46.0); HEMO FLAGS DIFF FINAL; LYMPHOCYTE # 1.8 TH/MM3 (1.0-4.8); MEAN CORPUSCULAR HEMOGLOBIN 27.2 PG (27.0-34.0); MEAN CORPUSCULAR HGB CONC 32.3 % (32.0-36.0); MONO % 4.7 % (0.0-8.0); NEUT % 72.8 % (16.0-70.0); PLATELET COUNT 311 TH/MM3 (150-450); RED BLOOD COUNT 4.39 MIL/MM3 (4.00-5.30); RED CELL DISTRIBUTION WIDTH 15.7 % (11.6-17.2); WHITE BLOOD COUNT 10.3 TH/MM3 (4.0-11.0)
[2016-03-29 07:08] LABS: INTERNATIONAL NORMALIZED RATIO 2.8 RATIO; PROTHROMBIN TIME - PATIENT 32.2 SEC (9.8-11.6)
[2016-03-29 07:09] LABS: POTASSIUM 3.6 MEQ/L (3.5-5.1)
[2016-03-29 07:14] LABS: BICARBONATE 23.4 MEQ/L (21.0-32.0)
[2016-03-29] MEDS: DOCUSATE SODIUM 100 MG CAP PO SCH ×2 (08:50→19:50)
[2016-03-29] MEDS: CITALOPRAM HYDROBROMIDE 20 MG TAB PO SCH (08:50)
[2016-03-29] MEDS: CEFUROXIME AXETIL 250 MG TAB PO SCH ×2 (08:50→19:50)
[2016-03-29] MEDS: DOCUSATE SODIUM 50 MG/SENNA 8.6 MG TAB PO SCH ×2 (08:50→19:50)
[2016-03-29] MEDS: SODIUM CHLORIDE 0.9% FLUSH 5 ML FLUSH FLUSH SCH ×2 (08:51→19:50)
[2016-03-29 08:58] VITALS: BP 147/80; PULSE 71; RESP 16; TEMP 97.3; O2SAT 95
[2016-03-29 12:39] VITALS: BP 141/72; PULSE 76; RESP 15; TEMP 98.5; O2SAT 94
--- NOTE | 2016-03-29 15:27 | HHI.PR ---
Subjective Remarks Patient is feeling well. BMP is within normal limits. The patient's IV fell out and the son does not want it replaced. We are still waiting for authorization for nursing facility. Objective Vitals Vital Signs Date Time Temp Pulse Resp B/P Pulse Ox O2 Delivery O2 Flow Rate FiO2 03/29/16 12:39 98.5 76 15 141/72 94 03/29/16 08:58 97.3 71 16 147/80 95 03/29/16 00:23 98.9 80 14 140/66 94 03/28/16 20:01 99.1 88 14 153/84 96 03/28/16 16:00 97.6 72 20 131/76 97 I/O 03/28/16 03/28/16 03/28/16 03/29/16 03/29/16 03/29/16 07:00 15:00 23:00 07:00 15:00 23:00 Intake Total 250 ml Balance 250 ml IV Total 250 ml # Voids 1 3 1 # Bowel Movements 0 1 Result Diagram: 03/29/16 0650 03/29/16 0650 Objective Remarks GENERAL: Well-nourished, well-developed frail elderly female patient. SKIN: Warm and dry. HEAD: Normocephalic. EYES: No scleral icterus. No injection or drainage. NECK: Supple, trachea midline. No JVD or lymphadenopathy. CARDIOVASCULAR: Regular rate and rhythm without murmurs, gallops, or rubs. RESPIRATORY: Breath sounds equal bilaterally. No accessory muscle use. GASTROINTESTINAL: Abdomen soft, non-tender, nondistended. EXTREMITIES: She has trace edema of the right wrist. NEUROLOGICAL: Awake, alert, and oriented to place. cognition clear. Nonfocal. A/P Assessment and Plan -Generalized pain --> seems to have resolved. initially pain was more on the right side then became generalized including both wrists, shoulder, bilateral lower legs. She may have some osteoarthritis. I did give her Decadron IV yesterday. Her total CK was not elevated. She is physically deconditioned and initially was not able to participate with physical therapy due to her pain. However today she was able to participate physical therapy and get up to chair. -Acute encephalopathy secondary to pain medications, now resolved. Appears clear and competent to make her decisions. 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 We are trying to get her into a nursing facility at this time. -Depression. Continue Celexa and Remeron. -Possible UTI. Urine culture with 10-50,000 mixed gram-positive colony forming units, probably contaminants. DC antibiotics. - Hypertension - currently normotensive will monitor blood pressure. -Acute kidney injury, now resolved with IV fluids. 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 However glucose normal. -CODE STATUS - DO NOT RESUSCITATE. Discharge Planning nursing facility when arrangements made. Shanna Baron MD Mar 29, 2016 15:27
[2016-03-29 16:00] VITALS: BP 146/83; PULSE 74; RESP 18; TEMP 98; O2SAT 95
[2016-03-29] MEDS: WARFARIN SOD 5 MG TAB PO SCH (16:59)
[2016-03-29] MEDS: POLYETHYLENE GLYCOL 17 GM PKG PO PRN (19:49)
[2016-03-29] MEDS: MIRTAZAPINE 15 MG TAB PO SCH (19:50)
[2016-03-30] VITALS: BP 176/89; PULSE 71; RESP 20; TEMP 97.5; O2SAT 96
[2016-03-30 06:48] LABS: INTERNATIONAL NORMALIZED RATIO 3.4 RATIO; PROTHROMBIN TIME - PATIENT 40.1 SEC (9.8-11.6)
[2016-03-30 08:00] VITALS: BP 151/76; PULSE 72; RESP 18; TEMP 98.8; O2SAT 95
[2016-03-30] MEDS: SODIUM CHLORIDE 0.9% FLUSH 5 ML FLUSH FLUSH SCH (08:26)
[2016-03-30] MEDS: DOCUSATE SODIUM 100 MG CAP PO SCH (08:26)
[2016-03-30] MEDS: CITALOPRAM HYDROBROMIDE 20 MG TAB PO SCH (08:26)
[2016-03-30] MEDS: CEFUROXIME AXETIL 250 MG TAB PO SCH (08:26)
[2016-03-30] MEDS: DOCUSATE SODIUM 50 MG/SENNA 8.6 MG TAB PO SCH (08:27)
--- NOTE | 2016-03-30 09:07 | HHI.PR ---
Subjective Remarks The patient endorses feeling mildly confused this morning. She thinks she is at work instead of a patient. She does remember me from yesterday and recognizes me as her physician. She states her right wrist is sore. Objective Vitals Vital Signs Date Time Temp Pulse Resp B/P Pulse Ox O2 Delivery O2 Flow Rate FiO2 03/30/16 08:00 98.8 72 18 151/76 95 03/30/16 00:00 97.5 71 20 176/89 96 03/29/16 16:00 98.0 74 18 146/83 95 03/29/16 12:39 98.5 76 15 141/72 94 I/O 03/29/16 03/29/16 03/29/16 03/30/16 03/30/16 03/30/16 07:00 15:00 23:00 07:00 15:00 23:00 Intake Total 620 ml Output Total 0 ml Balance 620 ml Intake Oral 620 ml Output Urine Total 0 ml # Voids 1 2 2 # Bowel Movements 1 0 1 Result Diagram: 03/29/16 0650 03/29/16 0650 Objective Remarks GENERAL: Well-nourished, well-developed frail elderly female patient. SKIN: Warm and dry. HEAD: Normocephalic. EYES: No scleral icterus. No injection or drainage. NECK: Supple, trachea midline. No JVD or lymphadenopathy. CARDIOVASCULAR: Regular rate and rhythm without murmurs, gallops, or rubs. RESPIRATORY: Breath sounds equal bilaterally. No accessory muscle use. GASTROINTESTINAL: Abdomen soft, non-tender, nondistended. EXTREMITIES: no edema. NEUROLOGICAL: Awake, alert, and oriented to self, no place. calm. speech clear. Nonfocal. A/P Assessment and Plan -Generalized pain --> seems to have resolved. 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 Pain now more located to right wrist, xrays negative of both wrists, shoulder, bilateral lower legs. She may have some osteoarthritis. S/p Decadron IV with improvement. Total CK was not elevated. Cont tylenol for pain. Cont PT. -Acute encephalopathy secondary to pain medications, now resolved. 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 We are trying to get her into a nursing facility at this time. -Depression. Continue Celexa and Remeron. -Possible UTI. Urine culture with 10-50,000 mixed gram-positive colony forming units, probably contaminants. DC antibiotics. - Hypertension - currently normotensive will monitor blood pressure. -Acute kidney injury, now resolved with IV fluids. 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 However glucose normal. -No IV access (fell out yesterday and son requested it not be replaced). -CODE STATUS - DO NOT RESUSCITATE. Discharge Planning nursing facility when arrangements made. Shanna Baron MD Mar 30, 2016 09:07
[2016-03-30 12:00] VITALS: BP 125/67; PULSE 74; RESP 16; TEMP 97.1; O2SAT 95
[2016-03-30 16:00] VITALS: BP 128/75; PULSE 86; RESP 18; TEMP 98.1; O2SAT 95
--- NOTE | 2016-03-31 09:14 | HHI.DS ---
Discharge Summary Admission Date Mar 24, 2016 at 18:10 Discharge Date: Mar 30, 2016 Admitting Diagnosis Encephalopathy, dehydration, uti, gait instability (1) Right hand pain ICD Code: M79.641 (2) Encephalopathy ICD Code: G93.40 (3) Failure to thrive in adult ICD Code: R62.7 (4) Gait instability ICD Code: R26.81 (5) Lower extremity pain, right ICD Code: M79.604 Procedures none Brief History - From Admission This is an 85-year-old -[place] female, very pleasant, with past medical history of DVTs, bilateral pulmonary embolism on Coumadin, hypertension, failure to thrive with weight loss over the past year who was brought to the ER last night from the hospice of the [facility] in [place] for evaluation of pain in the right upper and lower extremity as well as diminished by mouth intake. History was obtained from discussing with the ER physician, as well as with Dr. Serrano who reviewed the hospice notes, as well as with discussion with the patient herself. The patient states that she has been having pain in her upper and lower extremity since the previous week and that she also has pain in her left shoulder and pain when she turns her neck. The patient has been on hospice for some months after multiple hospital visits including syncope/presyncope as well as DVTs and pulmonary embolism from relative immobility, as well as a decline and general weakness with weight loss. Her primary caregiver is her son Juan Manuel with whom she lives. The patient had a visit to the care center over January 2016 but improved and was discharged home. According to the hospice notes the patient was admitted to the hospice of the [facility] last week after the son came home and found her seated at the edge of the bed complaining of a lot of pain and unable to ambulate. At that point hospice had a discussion with the patient and Juan Manuel and it was decided to admit her to the care center. At the care center it was very difficult to control her pain is any slight movement would cause her pain. Apparently yesterday some other family members from out of town came to visit the patient and were concerned with her decreased mentation, not eating or drinking and wanted a workup of why she was having pain in the extremities. The patient was thus brought to the ER where x-rays of the right femur, and hip and right wrist were all negative for fracture. Head CT is negative for acute changes. Chest x-ray was negative for any acute process. Urinalysis was suspicious for infection. This was conveyed to the family by the ER physician. Decision was made for the patient to be admitted to the hospital for evaluation of the extremity pain. She was kept a DO NOT RESUSCITATE. The patient herself states that she has had a cough but denies any dyspnea or fever. She denies any dysuria. She denies knowing of any recent falls. There is currently no family at the bedside. Patient's mentation at this time seems clear. She is able to clearly tell me that she would like to get stronger and she would like to know what is causing the pain including getting a CT scan to evaluate for fracture that may not have been imaged on the x-rays. The patient states that she is comfortable as long as she is not moved. She states she was [facility]. When I asked the patient regarding her CODE STATUS, the patient stated "I don't know." I explained in detail regarding CPR intubation and stated that at her age after suffering a cardiac event the chance of her having survival to any kind of reasonable neurologic recovery is slim to none. The patient continues to state I don't know" regarding her CODE STATUS. I then explained that if she is not sure she would by default be a full code. The patient stated that she was agreeable to this. CBC/BMP: 03/29/16 0650 03/29/16 0650 Significant Findings Laboratory Tests Test 03/29/16 03/30/16 06:50 05:20 Neutrophils (%) (Auto) 72.8 % (16.0-70.0) Prothrombin Time 32.2 SEC 40.1 SEC (9.8-11.6) (9.8-11.6) PE at Discharge GENERAL: Well-nourished, well-developed frail elderly female patient. SKIN: Warm and dry. HEAD: Normocephalic. EYES: No scleral icterus. No injection or drainage. NECK: Supple, trachea midline. No JVD or lymphadenopathy. CARDIOVASCULAR: Regular rate and rhythm without murmurs, gallops, or rubs. RESPIRATORY: Breath sounds equal bilaterally. No accessory muscle use. GASTROINTESTINAL: Abdomen soft, non-tender, nondistended. EXTREMITIES: no edema. NEUROLOGICAL: Awake, alert, and oriented to self, no place. calm. speech clear. Nonfocal. Hospital Course -Generalized pain --> seems to have resolved. 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 Pain now more located to right wrist, xrays negative of both wrists, shoulder, bilateral lower legs. She may have some osteoarthritis. S/p Decadron IV with improvement. Total CK was not elevated. Cont tylenol for pain. Cont PT. -Acute encephalopathy secondary to pain medications, now resolved. 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 -Depression. Continue Celexa and Remeron. -Possible UTI. Urine culture with 10-50,000 mixed gram-positive colony forming units, probably contaminants. DC antibiotics. - Hypertension - currently normotensive will monitor blood pressure. -Acute kidney injury, now resolved with IV fluids. 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 However glucose normal. -No IV access (fell out yesterday and son requested it not be replaced). -CODE STATUS - DO NOT RESUSCITATE. Patient discharged to nursing home facility [facility]. Pt Condition on Discharge: Stable Discharge Disposition: Discharge to SNF Discharge Time: <= 30 minutes Discharge Instructions DIET: Follow Instructions for: As Tolerated, No Restrictions Activities you can perform: Regular-No Restrictions New Medications: Acetaminophen (Acetaminophen) 325 Mg Tab 650 MG PO Q4H PRN pain #30 TAB Continued Medications: Citalopram (Citalopram) 20 Mg Tab 20 MG PO DAILY Control Depression #30 Ref 0 TAB Dicyclomine (Dicyclomine) 10 Mg Cap 10 MG PO QID Bowel Management Ref 0 CAP Mirtazapine (Mirtazapine) 15 Mg Tab 15 MG PO HS Depression Control #30 Ref 0 TAB Sennosides (Sennosides) 8.6 Mg Tab 8.6 MG PO HS Constipation Ref 0 TAB Warfarin (Warfarin) 5 Mg Tab 5 MG PO DAILY wed, , wed, , wed Blood Clot Prevention #30 Ref 0 TAB Warfarin (Warfarin) 7.5 Mg Tab 7.5 MG PO DAILY mon, fri Blood Clot Prevention #30 Ref 0 TAB Discontinued Medications: Haloperidol (Haloperidol) 0.5 Mg Tab 0.25 MG PO Q8HR Ref 0 TAB Shanna Baron MD Mar 31, 2016 09:14
== END 2016-03-30 18:40 ==
LOC: PHED 16:12 → PHEDA 18:10 → PH3A 22:28
PROVIDERS: ADMIT Family Medicine; ATTEND Family Medicine
DX: G92 Toxic encephalopathy (principal); T39.95XA Adverse effect of unspecified nonopioid analgesic, antipyretic and antirheumatic, initial encounter; M79.641 Pain in right hand; M79.604 Pain in right leg; N30.01 Acute cystitis with hematuria; E86.0 Dehydration; R62.7 Adult failure to thrive; R26.81 Unsteadiness on feet; I12.9 Hypertensive chronic kidney disease with stage 1 through stage 4 chronic kidney disease, or unspecified chronic kidney disease; N18.3 Chronic kidney disease, stage 3 (moderate); N17.9 Acute kidney failure, unspecified; E11.22 Type 2 diabetes mellitus with diabetic chronic kidney disease; D68.59 Other primary thrombophilia; E78.5 Hyperlipidemia, unspecified; F03.90 Unspecified dementia, unspecified severity, without behavioral disturbance, psychotic disturbance, mood disturbance, and anxiety; F32.9 Major depressive disorder, single episode, unspecified; E78.00 Pure hypercholesterolemia, unspecified; J32.0 Chronic maxillary sinusitis; K21.9 Gastro-esophageal reflux disease without esophagitis; K58.9 Irritable bowel syndrome, unspecified; M85.80 Other specified disorders of bone density and structure, unspecified site; M15.9 Polyosteoarthritis, unspecified; Z86.711 Personal history of pulmonary embolism; Z86.718 Personal history of other venous thrombosis and embolism; Z99.2 Dependence on renal dialysis; Z66 Do not resuscitate
CPT/HCPCS: 70450; 71010; 73110; 73502; 73552; 80048; 80053; 81001; 82550; 83880; 84484; 85025; 85610; 85730; 87086; 93005; 96361; 96374; 97110; 97116; 97162; 97530; 99285; G0378; G8987; G8988; J0360; J0696; J1650; J1956; J7030; J7050

== ENCOUNTER 2016-10-18 21:29 | Inpatient (IN) | payer OTHER, MEDICARE ==
[~2016-10-18 21:29] MED LIST changes: +ACET325T PO; -ATOR40TA16 PO; -CEPH-460 PO; -COUM2.5T PO; +DICY10CA12 PO; -ENOX60P SQ; +SENN8.6T81 PO; +WARF-21 PO; +WARF-23 PO
[2016-10-18 21:54] VITALS: PULSE 81; RESP 20; O2SAT 98
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
--- NOTE | 2016-10-18 22:21 | RADRPT ---
EXAM DATE/TIME: 10/18/2016 22:13 [facility] COMPARISON: CT BRAIN W/O CONTRAST, March 24, 2016, 18:24. INDICATIONS : Trauma, possible fall. Found on ground. RADIATION DOSE: 28.89 CTDIvol (mGy) MEDICAL HISTORY : Hypertension. Diabetes mellitus type 2. SURGICAL HISTORY : Appendectomy. ENCOUNTER: Initial ACUITY: 1 day PAIN SCALE: 0/10 LOCATION: cranial TECHNIQUE: Multiple contiguous axial images were obtained of the head. Using automated exposure control and adj ustment of the mA and/or kV according to patient size, radiation dose was kept as low as reasonably a chievable to obtain optimal diagnostic quality images. DICOM format image data is available electro nically for review and comparison. FINDINGS: There is moderate central and cortical atrophy with dilatation of ventricular and sulcal spaces. The re is no parenchymal hemorrhage, acute infarction or mass lesion identified. There are no extra-axia l fluid collections appreciated. The posterior fossa is unremarkable with midline fourth ventricle. The portion of the orbits and paranasal sinuses visualized are unremarkable. CONCLUSION: No evidence of acute infarct, hemorrhage, mass or edema. Moderate atrophy Amilcar Limon MD on October 18, 2016 at 22:18 Board Certified Radiologist. This report was verified electronically.
--- NOTE | 2016-10-18 22:28 | RADRPT ---
EXAM DATE/TIME: 10/18/2016 22:13 [facility] COMPARISON: No previous studies available for comparison. INDICATIONS : Trauma, possible fall. Found on ground. RADIATION DOSE: 14.08 CTDIvol (mGy) MEDICAL HISTORY : Hypertension. Diabetes mellitus type 2. SURGICAL HISTORY : Appendectomy. ENCOUNTER: Initial ACUITY: 1 day PAIN SCALE: 0/10 LOCATION: neck TECHNIQUE: Volumetric scanning of the cervical spine was performed. Multiplanar reconstructions in the sagittal, coronal and oblique axial planes were performed. Using automated exposure control and adjustment o f the mA and/or kV according to patient size, radiation dose was kept as low as reasonably achievable to obtain optimal diagnostic quality images. DICOM format image data is available electronically f or review and comparison. FINDINGS: Craniocervical and cervical vertebral body alignment is well maintained without evidence of traumatic listhesis. Vertebral bodies and posterior elements are intact. There is no evidence of compression fracture or f acet subluxation. Degenerative disc disease with significantnarrowing and marginal spondylosis is noted. There are no acute soft tissue abnormalities CONCLUSION: 1. Advanced degenerative disc disease. 2. No evidence of acute fracture or subluxation. Amilcar Limon MD on October 18, 2016 at 22:24 Board Certified Radiologist. This report was verified electronically.
[2016-10-18 22:38] LABS: BLOOD, URINE NEG (NEG); COMMENT (UR) CULT NOT INDICATED; CULTURE IF INDICATED CULT NOT INDICATED; GLUCOSE,URINE NEG (NEG); HYALINE CAST, URINE 11 /lpf (RARE); KETONE, URINE TRACE mg/dL (NEG); MUCUS URINE FEW /lpf (OCC); NITRITE,URINE NEG (NEG); SQUAMOUS EPITHELIAL CELL URINE 2 /hpf (0-5); URINE COLOR YELLOW (YELLW/STRAW)
--- NOTE | 2016-10-18 22:39 | RADRPT ---
EXAM DATE/TIME: 10/18/2016 22:25 [facility] COMPARISON: CHEST SINGLE AP, March 24, 2016, 17:34. INDICATIONS : Cough. MEDICAL HISTORY : Venous insufficiency. Hypertension. Diabetes mellitus type 2. SURGICAL HISTORY : Appendectomy. ENCOUNTER: Initial ACUITY: 1 day PAIN SCORE: 0/10 LOCATION: Bilateral chest FINDINGS: A single view of the chest demonstrates the lungs to be symmetrically aerated without evidence of mas s, infiltrate or effusion. The cardiomediastinal contours are unremarkable. Osseous structures are intact. CONCLUSION: No acute disease. No significant change has occurred. Amiclar Limon MD on October 18, 2016 at 22:37 Board Certified Radiologist. This report was verified electronically.
[2016-10-18 22:42] VITALS: BP 143/66; PULSE 84; RESP 20; TEMP 98.7; O2SAT 99
[2016-10-18 22:43] VITALS: TEMP 98.7; O2SAT 98
[2016-10-18 22:43] LABS: AUTOMATED NEUTROPHIL # 9.3 TH/MM3 (1.8-7.7); BASOPHIL # 0.5 TH/MM3 (0-0.2); BASOPHIL % 3.1 % (0.0-2.0); EOSINOPHIL # 0.1 TH/MM3 (0-0.4); EOSINOPHIL % 0.7 % (0.0-4.0); HEMATOCRIT 37.3 % (35.0-46.0); LYMPH % 30.8 % (9.0-44.0); LYMPHOCYTE # 4.8 TH/MM3 (1.0-4.8); MEAN CELL VOLUME 92.5 FL (80.0-100.0); MEAN CORPUSCULAR HEMOGLOBIN 30.3 PG (27.0-34.0); MEAN CORPUSCULAR HGB CONC 32.7 % (32.0-36.0); MONO % 5.4 % (0.0-8.0); PLATELET COUNT 226 TH/MM3 (150-450); RED BLOOD COUNT 4.04 MIL/MM3 (4.00-5.30); RED CELL DISTRIBUTION WIDTH 14.3 % (11.6-17.2); WHITE BLOOD COUNT 15.5 TH/MM3 (4.0-11.0)
[2016-10-18 22:45] LABS: HEMO FLAGS AUTO DIFF
[2016-10-18] MEDS ORDERED: XARE20TA PO (22:46)
[2016-10-18] MEDS ORDERED: ATOR20TA15 PO (22:46)
[2016-10-18 22:47] LABS: BLOOD GAS BASE EXCESS -6.9 mmol/L (-2-2); BLOOD GAS CARBOXYHEMOGLOBIN 1.1 % (0-4); BLOOD GAS HCO3 17 mmol/L (22-26); BLOOD GAS METHEMOGLOBIN 0.4 % (0-2); BLOOD GAS O2 HGB SATURATION 97 % (90-100); BLOOD GAS OXYGEN CONTENT 16.3 Vol % (12.0-20.0); BLOOD GAS PCO2 25 mmHg (38-42); BLOOD GAS PO2 115 mmHG (61-120); BLOOD GAS TOTAL HGB 11.8 G/DL (12.0-16.0); TEMP CORR TO 98.6
[2016-10-18 22:48] LABS: CRITICAL VALUE NO; DRAW SITE RT RADIAL; LITER FLOW 3 L/M; NUMBER OF ARTERIAL PUNCTURES 1; OXYGEN DEVICE NASAL CANNULA; STAT YES; ULNAR PULSE PRESENT
[2016-10-18 22:52] LABS: APTT (PATIENT) 27.8 SEC (24.3-30.1); INTERNATIONAL NORMALIZED RATIO 1.3 RATIO; PROTHROMBIN TIME - PATIENT 14.4 SEC (9.8-11.6)
[2016-10-18 22:55] LABS: ANION GAP 12 MEQ/L (5-15); AST (GOT) 17 U/L (15-37); BICARBONATE 20.7 MEQ/L (21.0-32.0); BLOOD UREA NITROGEN 18 MG/DL (7-18); CHLORIDE 105 MEQ/L (98-107); GLOMERULAR FILTRATION RATE 61 ML/MIN (>89); MAGNESIUM 1.6 MG/DL (1.5-2.5); SODIUM (NA) 138 MEQ/L (136-145)
[2016-10-18 22:56] LABS: ALT (GPT) 16 U/L (10-53)
[2016-10-18 22:57] VITALS: BP 145/64; PULSE 95; RESP 18; O2SAT 98
[2016-10-18 23:00] LABS: ALKALINE PHOSPHATASE 93 U/L (45-117); TOTAL BILIRUBIN ADULT 0.6 MG/DL (0.2-1.0)
[2016-10-18 23:15] LABS: CREATINE KINASE 56 U/L (26-192)
[2016-10-18] MEDS ORDERED: POTASSIUM CHLORIDE 25 MEQ EFFERVESCENT TAB PO ONE (23:15)
[2016-10-18] MEDS ORDERED: SODIUM CHLORID 0.9% 500 ML INJ 500 ML IV ONE (23:45)
[2016-10-18] MEDS ORDERED: ONDANSETRON HCL 4 MG/2 ML VIAL IV PUSH ONE (23:45)
[2016-10-19] VITALS (17 sets, daily range): BP systolic 123–170; BP diastolic 57–75; PULSE 91–108; RESP 16–18; TEMP 97.9–98.7; O2SAT 95–100
[2016-10-19 00:04] LABS: BASOPHILS 1 % (0-2); MYELOCYTES 1 % (0-0); NEUTROPHIL # MANUAL DIFF 10.1 TH/MM3 (1.8-7.7); POLYS (SEG NEUTROPHILS) 64 % (16-70); WBC DIFF SAMPLE 100
[2016-10-19 00:05] LABS: PLATELET ESTIMATE SMEAR NORMAL (NORMAL); PLATELET MORPHOLOGY NORMAL (NORMAL); SCAN/DIFF FINAL DIFF MANUAL
[2016-10-19] MEDS ORDERED: NALOXONE HCL 0.4 MG/ML AMP IV PRN (01:00)
[2016-10-19] MEDS ORDERED: SODIUM CHLORIDE 0.9% FLUSH 10 ML FLUSH IV FLUSH PRN (01:00)
[2016-10-19] MEDS ORDERED: IOHEXOL 350 MG/ML 10 ML VIAL (for RAD DIAG) IVCONTRAST ONE (01:15)
[2016-10-19] MEDS ORDERED: FAMOTIDINE INJ 20 MG in SODIUM CHLORIDE 0.9% INJ 98 ML IV STA (01:23)
[2016-10-19] MEDS ORDERED: NITROGLYCERIN 0.4 MG SL 25 TABS/BTL SL ONE (01:30)
[2016-10-19] MEDS ORDERED: NITROGLYCERIN 2% OINT 1 GM PACKET TOPICAL ONE (01:30)
--- NOTE | 2016-10-19 01:50 | RADRPT ---
EXAM DATE/TIME: 10/19/2016 01:13 [facility] COMPARISON: No previous studies available for comparison. INDICATIONS : Chest pain. IV CONTRAST: 75 cc Omnipaque 350 (iohexol) IV RADIATION DOSE: 23.22 CTDIvol (mGy) MEDICAL HISTORY : Hypertension. Cardiovascular disease Diabetes mellitus type 2. SURGICAL HISTORY : Appendectomy. ENCOUNTER: Initial ACUITY: 1 day PAIN SCALE: 5/10 LOCATION: chest TECHNIQUE: Volumetric scanning of the chest was performed using a pulmonary embolism protocol MIP images were re constructed. Using automated exposure control and adjustment of the mA and/or kV according to patien t size, radiation dose was kept as low as reasonably achievable to obtain optimal diagnostic quality images. DICOM format image data is available electronically for review and comparison. Follow-up recommendations for detected pulmonary nodules are based at a minimum on nodule size and pa tient risk factors according to Fleischner Society Guidelines. FINDINGS: No filling defects identified to suggest pulmonary embolic disease on the current examination. Previo us right peripheral lung consolidation related to previous pulmonary embolus has markedly improved wi th some residual linear scarring and pleural thickening. There is some patchy airspace disease in the right perihilar region and left perihilar region predomi nantly in upper lobes most characteristic of a mild bronchopneumonia. No pleural effusion. No adenopathy. CONCLUSION: 1. Negative for pulmonary embolus. 2. Patchy perihilar airspace disease most characteristic of mild bronchopneumonia. 3. Mild to moderate centrilobular emphysema. 4. Improvement of previous peripheral lung consolidation right lower lobe with residual linear atelec tasis, scarring and pleural thickening. Bryon Wolfe MD on October 19, 2016 at 1:45 Board Certified Radiologist. This report was verified electronically.
--- NOTE | 2016-10-19 02:03 | HHI.HP ---
[facility] Admission Diagnosis vomiting and diarrhea, hypokalemia, dehydration, chest pain Diagnoses: (1) Acute bronchopneumonia (2) Atypical chest pain (3) Nausea & vomiting (4) Abdominal pain Chief Complaint: Syncopal episode in the bathroom Travel History International Travel<30 Days: No Contact w/Intl Traveler <30 Da: No Traveled to Known Affected Are: No History of Present Illness Written by Lacy Carmen, acting as scribe for Dr. Mendoza on 10/19/16 at 02:03. The patient states that her son brought her to the hospital following a syncopal episode in the bathroom. She says she's had periumbilical abdominal pain for a few days accompanied by diarrhea for at least a week occurring 3-4 times per day. She's had some nausea with vomiting since yesterday morning. She is unable to state whether the stool is black or bloody because she "doesn't look at it". She says she was sitting on the toilet and experiencing abdominal pain when she fell on the floor and lost consciousness. She said she did have some chest pain prior to the episode. She also reports having chest pain while taking a deep breath in the hospital. CT pulmonary angiogram was negative in the ED. She denies any unilateral weakness. She states she was not confused upon awakening from syncopal episode. She states she is unsure whether or not she was incontinent of urine or bowel. She is also not sure whether or not she had fevers. She denies black or coffee-colored emesis or hematemesis. She also reports losing nearly 50 pounds over the last year unintentionally due to poor appetite. Review of Systems Except as stated in HPI: all other systems reviewed are Neg Past Family Social History Past Medical History Hypertension Type 2 diabetes mellitus, diet controlled DVT on Xarelto Denies heart problems, irregular rhythms such as atrial fibrillation, asthma, COPD, emphysema, liver problems, kidney problems, PE, CVA, seizures, thyroid problems, or cancers. Past Surgical History Appendectomy Bilateral wrist surgery Dental extractions . Reported Medications Reported Meds & Active Scripts Active Reported Atorvastatin (Atorvastatin Calcium) 20 Mg Tab 20 Mg PO DAILY Xarelto (Rivaroxaban) 20 Mg Tab 20 Mg PO DAILY Mirtazapine 15 Mg Tab 15 Mg PO HS . Allergies: Coded Allergies: codeine (Verified Allergy, Severe, STATES SWELLING, 10/18/16) hydrocodone (Verified Allergy, Severe, SWELLING, 10/18/16) lisinopril (Verified Allergy, Severe, ANGIOEDEMA, 10/18/16) Active Ordered Medications Current Medications Potassium Bicarb/ Potassium Chloride (K-Lyte Cl Eff) 50 meq ONCE ONCE PO ; Start 10/18/16 at 23:15; Stop 10/18/16 at 23:16; Status DC Sodium Chloride 500 ml @ 500 mls/hr BOLUS ONCE IV Last administered on 23:49; Start 10/18/16 at 23:45; Stop 10/19/16 at 00:44; Status DC Ondansetron HCl (Zofran Inj) 4 mg ONCE ONCE IV PUSH Last administered on 23:49; Start 10/18/16 at 23:45; Stop 10/18/16 at 23:46; Status DC Sodium Chloride (NS Flush) 2 ml UNSCH PRN IV FLUSH FLUSH AFTER USING IV ACCESS ; Start 10/19/16 at 01:00 Sodium Chloride (NS Flush) 2 ml BID IV FLUSH ; Start 10/19/16 at 09:00 Naloxone HCl (Narcan Inj) 0.4 mg UNSCH PRN IV SEE LABEL COMMENTS; Start at 01:00 Iohexol (Omnipaque 350 Inj) 75 ml STK-MED ONCE IVCONTRAST ; Start 10/19/16 at 01 :15; Stop 10/19/16 at 01:16; Status DC Nitroglycerin (Nitrostat Sl) 0.4 mg ONCE ONCE SL Last administered on 01:25; Start 10/19/16 at 01:30; Stop 10/19/16 at 01:31; Status DC Nitroglycerin (Nitroglycerin 2% Oint) 1 inch ONCE ONCE TOPICAL Last administered on 10/19/16 02:05; Start 10/19/16 at 01:30; Stop 10/19/16 at 01:31 ; Status DC Aspirin (Aspirin Chew) 162 mg DAILY CHEW ; Start 10/19/16 at 09:00 Famotidine 20 mg/ Sodium Chloride 100 ml @ 4 mls/hr STAT STAT IV Last administered on 10/19/16 01:25; Start 10/19/16 at 01:23; Stop 10/20/16 at 02:22 Piperacillin Sod/ Tazobactam Sod 100 ml @ 200 mls/hr Q6H IV Last administered on 10/19/16 02:12; Start 10/19/16 at 02:00 . Family History Mother with hypertension only living sibling out of 9 . Social History Tobacco: quit 20 years ago Alcohol: 1 alcoholic beverage/dalia per day . Physical Exam Vital Signs Vital Signs Date Time Temp Pulse Resp B/P (MAP) Pulse Ox O2 Delivery O2 Flow Rate FiO2 10/19/16 00:57 98.5 99 18 135/60 (85) 100 Nasal Cannula 3.00 10/18/16 22:57 95 18 145/64 (91) 98 Nasal Cannula 3.00 10/18/16 22:43 98.7 98 Nasal Cannula 3.00 10/18/16 22:42 98.7 84 20 143/66 (91) 99 Nasal Cannula 3.00 10/18/16 21:54 81 20 98 Room Air 10/18/16 21:38 98 Room Air Physical Exam GENERAL: This is a thin, frail elderly female patient, in no apparent distress. SKIN: No rashes, ecchymoses or lesions. Cool and dry. HEAD: Atraumatic. Normocephalic. EYES: No scleral icterus. No injection or drainage. ENT: Nose without bleeding, purulent drainage. NECK: Trachea midline. No JVD. CARDIOVASCULAR: Regular rate and rhythm without murmurs, gallops, or rubs. RESPIRATORY: Breath sounds diminished, equal bilaterally. No wheezes, rales, or rhonchi. GASTROINTESTINAL: Abdomen soft, non-tender, nondistended. No guarding. MUSCULOSKELETAL: Extremities without clubbing, cyanosis, or edema. No calf tenderness. NEUROLOGICAL: Awake and alert. Motor and sensory grossly within normal limits. Normal speech. . Laboratory Laboratory Tests Test 10/18/16 21:55 10/18/16 22:05 10/18/16 22:25 White Blood Count 15.5 Red Blood Count 4.04 Hemoglobin 12.2 Hematocrit 37.3 Mean Corpuscular Volume 92.5 Mean Corpuscular Hemoglobin 30.3 Mean Corpuscular Hemoglobin Concent 32.7 Red Cell Distribution Width 14.3 Platelet Count 226 Mean Platelet Volume 8.9 Neutrophils (%) (Auto) 60.0 Lymphocytes (%) (Auto) 30.8 Monocytes (%) (Auto) 5.4 Eosinophils (%) (Auto) 0.7 Basophils (%) (Auto) 3.1 Neutrophils # (Auto) 9.3 Lymphocytes # (Auto) 4.8 Monocytes # (Auto) 0.8 Eosinophils # (Auto) 0.1 Basophils # (Auto) 0.5 CBC Comment AUTO DIFF Differential Total Cells Counted 100 Neutrophils % (Manual) 64 Lymphocytes % 28 Monocytes % 6 Basophils % 1 Neutrophils # (Manual) 10.1 Myelocytes 1 Differential Comment FINAL DIFF MANUAL Platelet Estimate NORMAL Platelet Morphology Comment NORMAL Prothrombin Time 14.4 Prothromb Time International Ratio 1.3 Activated Partial Thromboplast Time 27.8 Blood Urea Nitrogen 18 Creatinine 1.04 Random Glucose 150 Total Protein 7.9 Albumin 3.8 Calcium Level 10.0 Magnesium Level 1.6 Alkaline Phosphatase 93 Aspartate Amino Transf (AST/SGOT) 17 Alanine Aminotransferase (ALT/SGPT) 16 Total Bilirubin 0.6 Sodium Level 138 Potassium Level 3.0 Chloride Level 105 Carbon Dioxide Level 20.7 Anion Gap 12 Estimat Glomerular Filtration Rate 61 Total Creatine Kinase 56 Troponin I LESS THAN 0.02 B-Type Natriuretic Peptide 27 Lipase 224 Urine Color YELLOW Urine Turbidity HAZY Urine pH 6.0 Urine Specific Ingram 1.023 Urine Protein 30 Urine Glucose (UA) NEG Urine Ketones TRACE Urine Occult Blood NEG Urine Nitrite NEG Urine Bilirubin NEG Urine Urobilinogen 2.0 Urine Leukocyte Esterase TRACE Urine RBC 2 Urine WBC 4 Urine Squamous Epithelial Cells 2 Urine Amorphous Sediment RARE Urine Hyaline Casts 11 Urine Mucus FEW Microscopic Urinalysis Comment CULT NOT INDICATED Blood Gas Puncture Site RT RADIAL Blood Gas Patient Temperature 98.6 Blood Gas HCO3 17 Blood Gas Base Excess -6.9 Blood Gas Oxygen Saturation 97 Arterial Blood pH 7.44 Arterial Blood Partial Pressure CO2 25 Arterial Blood Partial Pressure O2 115 Arterial Blood Oxygen Content 16.3 Arterial Blood Carboxyhemoglobin 1.1 Arterial Blood Methemoglobin 0.4 Blood Gas Hemoglobin 11.8 Oxygen Delivery Device NASAL CANNULA Blood Gas Liter Flow 3 Result Diagram: 10/18/16215410/18/162154 Imaging . Last Impressions CT Angiography 9/11/17 0037 Signed Impressions: Service Date/Time: Wednesday, October 19, 2016 01:13 - CONCLUSION: 1. Negative for pulmonary embolus. 2. Patchy perihilar airspace disease most characteristic of mild bronchopneumonia. 3. Mild to moderate centrilobular emphysema. 4. Improvement of previous peripheral lung consolidation right lower lobe with residual linear atelectasis, scarring and pleural thickening. Bryon Wolfe MD Head CT 10/18/162149 Signed Impressions: Service Date/Time: Tuesday, October 18, 2016 22:13 - CONCLUSION: No evidence of acute infarct, hemorrhage, mass or edema. Moderate atrophy Amilcar Limon MD Chest X-Ray 10/18/162149 Signed Impressions: Service Date/Time: Tuesday, October 18, 2016 22:25 - CONCLUSION: No acute disease. No significant change has occurred. Amilcar Limon MD Cervical Spine CT 10/18/162149 Signed Impressions: Service Date/Time: Tuesday, October 18, 2016 22:13 - CONCLUSION: 1. Advanced degenerative disc disease. 2. No evidence of acute fracture or subluxation. Amilcar Limon MD Caprini VTE Risk Assessment Caprini VTE Risk Assessment: Mod/High Risk (score >= 2) Caprini Risk Assessment Model Point Value = 1 Point Value = 2 Point Value = 3 Point Value = 5 Age 41-60 Minor surgery BMI > 25 kg/m2 Swollen legs Varicose veins or History of unexplained or recurrent spontaneous Oral contraceptives or hormone replacement Sepsis (< 1 month) Serious lung disease, including pneumonia (< 1 month) Abnormal pulmonary function Acute myocardial infarction Congestive heart failure (< 1 month) History of inflammatory bowel disease Medical patient at bed rest Age 61-74 Arthroscopic surgery Major open surgery (> 45 min) Laparoscopic surgery (> 45 min) Malignancy Confined to bed (> 72 hours) Immobilizing plaster cast Central venous access Age >= 75 History of VTE Family history of VTE Factor V Leiden Prothrombin [id number] Lupus anticoagulant Anticardiolipin antibodies Elevated serum homocysteine Heparin-induced thrombocytopenia Other congenital or acquired thrombophilia Stroke (< 1 month) Elective arthroplasty Hip, pelvis, or leg fracture Acute spinal cord injury (< 1 month) Prophylaxis Regimen Total Risk Factor Score Risk Level Prophylaxis Regimen 0-1 Low Early ambulation 2 Moderate Order ONE of the following: *Sequential Compression Device (SCD) *Heparin 5000 units SQ BID 3-4 Higher Order ONE of the following medications: *Heparin 5000 units SQ TID *Enoxaparin/Lovenox 40 mg SQ daily (WT < 150 kg, CrCl > 30 mL/min) *Enoxaparin/Lovenox 30 mg SQ daily (WT < 150 kg, CrCl > 10-29 mL/min) *Enoxaparin/Lovenox 30 mg SQ BID (WT < 150 kg, CrCl > 30 mL/min) AND/OR *Sequential Compression Device (SCD) 5 or more Highest Order ONE of the following medications: *Heparin 5000 units SQ TID (Preferred with Epidurals) *Enoxaparin/Lovenox 40 mg SQ daily (WT < 150 kg, CrCl > 30 mL/min) *Enoxaparin/Lovenox 30 mg SQ daily (WT < 150 kg, CrCl > 10-29 mL/min) *Enoxaparin/Lovenox 30 mg SQ BID (WT < 150 kg, CrCl > 30 mL/min) AND *Sequential Compression Device (SCD) Assessment and Plan Problem List: (1) Acute bronchopneumonia ICD Code: J18.0 - Bronchopneumonia, unspecified organism (2) Nausea & vomiting ICD Code: R11.2 - Nausea with vomiting, unspecified (3) Diarrhea ICD Code: R19.7 - Diarrhea Status: Resolved (4) Atypical chest pain ICD Code: R07.89 - Other chest pain Assessment and Plan 86 y/o female presented to the ED following syncopal episode at home who is also complaining of abdominal pain, nausea, vomiting, diarrhea, and chest pain. Acute bronchopneumonia - CT pulmonary angiogram negative for pulmonary embolus but shows patchy perihilar airspace disease most characteristic mild bronchopneumonia; mild to moderate centrilobular emphysema - antibiotics: Zosyn 4.5 grams IV q6h - Check blood culture - Duo nebulizers q6h scheduled and every 4 hours as needed for wheezing - Supplemental oxygen via nasal cannula titrated to maintain oxygen saturation greater than 92% Nausea/vomiting/diarrhea/abdominal pain/weight loss - check for c. difficile toxin - Stool for leukocytes and enteric pathogens - follow results Chest pain - Check serial cardiac enzymes and EKGs to rule out ACS - Continuous cardiac telemetry to monitor for arrhythmia - Monitor vital signs every 4 hours DVT prophylaxis - Lovenox 40 mg subq q24h This note was transcribed by scribe [Lacy Carmen]. I, Dr. Russell Mendoza personally performed the history, physical exam, and medical decision making; and confirmed the accuracy of the information in the transcribed note. Authenticated by Dr. Russell Mendoza on 10/19/16 at 02:03. Code Status Previous DNR order, will need to clarify with patient's son as patient lacks capacity to weigh benefits vs burdens of treatments at the time of visit Discussed Condition With ER physician, patient, and patient's RN Physician Certification 2 Midnight Certification Type: Admission for Inpatient Services Order for Inpatient Services The services are ordered in accordance with Medicare regulations or non- Medicare payer requirements, as applicable. In the case of services not specified as inpatient-only, they are appropriately provided as inpatient services in accordance with the 2-midnight benchmark. Estimated LOS (days): 3 days is the estimated time the patient will need to remain in the hospital, assuming treatment plan goals are met and no additional complications. Post-Hospital Plan: Not yet determined Lacy Carmen Oct 19, 2016 02:03 Russell Mendoza MD Oct 20, 2016 11:19
[2016-10-19] MEDS: PIPERACIL-TAZO 4.5 GM PREMIX 100 ML IV SCH ×2 (02:12→08:43)
[2016-10-19] MEDS ORDERED: RESP: ALBUTEROL 2.5 MG/IPRATROPIUM 0.5 MG NEB (PRN) NEB (03:45)
[2016-10-19] MEDS: RESP: ALBUTEROL 2.5 MG/IPRATROPIUM 0.5 MG NEB (SCH) NEB ×4 (04:00→20:50)
[2016-10-19 05:04] LABS: CREATINE KINASE 76 U/L (26-192)
[2016-10-19] MEDS: ENOXAPARIN SODIUM 40 MG/0.4 ML SYRINGE SQ SCH (06:15)
[2016-10-19] MEDS: SODIUM CHLORIDE 0.9% FLUSH 10 ML FLUSH IV FLUSH SCH ×2 (08:44→23:43)
[2016-10-19] MEDS: ASPIRIN 81 MG CHEW TAB CHEW SCH (08:44)
--- NOTE | 2016-10-19 12:10 | HHI.PR ---
Addendum to Inpatient Note Addendum Reason: Additional Documentation Additional Information Pt complains of chest pain and abdominal pain, she points to her epigastric area w no radiation. states it is about a 7/10. sounds congested but denies any coughing. denies any fevers or chills. knows she is in the hospital and its in [facility]. cannot tell me the year but knows her date of and full name. on exam, pleasant, laying in bed, cooperative. lungs sounds appear diminished w no wheezing or crackles at this time, abdomen is soft, some discomfort w deep palpation in epigastric RUQ. moves extremities. 86 y/o female presented to the ED following syncopal episode at home who is also complaining of abdominal pain, nausea, vomiting, diarrhea, and chest pain. Acute bronchopneumonia - CT pulmonary angiogram negative for pulmonary embolus but shows patchy perihilar airspace disease most characteristic mild bronchopneumonia; mild to moderate centrilobular emphysema - antibiotics: continue Zosyn 4.5 grams IV q6h - follow up blood culture which are pending - continue Duo nebulizers q6h scheduled and every 4 hours as needed for wheezing - Supplemental oxygen via nasal cannula titrated to maintain oxygen saturation greater than 92% - encourage use of IS q1hr while awake Nausea/vomiting/diarrhea/abdominal pain/weight loss - check for c. difficile toxin, not yet available. - Stool for leukocytes and enteric pathogens - follow results Chest pain - Check serial cardiac enzymes and EKGs to rule out ACS. So far trop neg x 2 - Continuous cardiac telemetry to monitor for arrhythmia - Monitor vital signs every 4 hours DVT prophylaxis - Lovenox 40 mg subq q24h When asked about her code status she would like to be full code. Merlyn Judge MD Oct 19, 2016 12:10
--- NOTE | 2016-10-19 13:53 | EKG ---
Date Performed: 10/18/2016 Time Performed: 21:42:41 PTAGE: 86 years EKG: Sinus rhythm WITH SHORT PA INTERVAL NONSPECIFIC T-WAVE ABNORMALITY BORDERLINE ECG Compared to prior tracing no si gnificant change PREVIOUS TRACING : 03/24/2016 16.29 DOCTOR: Malina Leach Interpretating Date/Time 10/19/2016 13:51:46
--- NOTE | 2016-10-19 13:53 | EKG ---
Date Performed: 10/19/2016 Time Performed: 01:47:20 PTAGE: 86 years EKG: ATRIAL FLUTTER/TACHYCARDIA WITH RAPID VENTRICULAR RESPONSE MINIMAL ST DEPRESSION ABNORMAL R HYTHM ECG Compared to prior tracing no significant change PREVIOUS TRACING : 10/18/2016 21.42 DOCTOR: Malina Leach Interpretating Date/Time 10/19/2016 13:51:57
[2016-10-19 15:25] LABS: CREATINE KINASE 109 U/L (26-192)
[2016-10-19] MEDS: PIPERACIL-TAZO 3.375 GM PREMIX 50 ML IV SCH ×2 (15:37→23:42)
[2016-10-20] VITALS (13 sets, daily range): BP systolic 117–174; BP diastolic 56–75; PULSE 90–115; RESP 16–18; TEMP 98–100; O2SAT 95–99
[2016-10-20] MEDS: RESP: ALBUTEROL 2.5 MG/IPRATROPIUM 0.5 MG NEB (SCH) NEB ×4 (02:55→20:31)
[2016-10-20] MEDS: PIPERACIL-TAZO 3.375 GM PREMIX 50 ML IV SCH ×4 (05:33→22:21)
[2016-10-20] MEDS: ENOXAPARIN SODIUM 40 MG/0.4 ML SYRINGE SQ SCH (05:34)
[2016-10-20] MEDS: ASPIRIN 81 MG CHEW TAB CHEW SCH (08:22)
[2016-10-20] MEDS: SODIUM CHLORIDE 0.9% FLUSH 10 ML FLUSH IV FLUSH SCH ×2 (08:22→22:14)
--- NOTE | 2016-10-20 10:23 | HHI.PR ---
Subjective Remarks Pt states that she is feeling better today, no CP or abdominal pain. cough is improving. No nausea or vomiting. eating some Objective Vitals Vital Signs Date Time Temp Pulse Resp B/P (MAP) Pulse Ox O2 Delivery O2 Flow Rate FiO2 10/20/16 07:58 105 10/20/16 07:19 99.4 111 18 138/62 (87) 96 10/20/16 04:00 108 10/20/16 03:36 99.9 115 17 174/75 (108) 97 10/20/16 00:00 108 10/19/16 23:33 97.9 108 16 170/75 (106) 97 10/19/16 20:49 95 Nasal Cannula 1.00 10/19/16 20:20 97.9 97 18 146/64 (91) 100 10/19/16 20:00 102 10/19/16 16:24 98 10/19/16 15:02 98.4 91 16 157/60 (92) 100 10/19/16 12:28 93 10/19/16 11:15 98.5 92 16 123/57 (79) 100 I/O 10/19/16 10/19/16 10/19/16 10/20/16 10/20/16 10/20/16 07:00 15:00 23:00 07:00 15:00 23:00 Intake Total 700 ml Balance 700 ml Intake IV Total 700 ml # Voids 1 Result Diagram: 10/18/16215410/18/162154 Imaging Last Impressions CT Angiography 10/19/16 0037 Signed Impressions: Service Date/Time: Wednesday, October 19, 2016 01:13 - CONCLUSION: 1. Negative for pulmonary embolus. 2. Patchy perihilar airspace disease most characteristic of mild bronchopneumonia. 3. Mild to moderate centrilobular emphysema. 4. Improvement of previous peripheral lung consolidation right lower lobe with residual linear atelectasis, scarring and pleural thickening. Bryon Wolfe MD Head CT 10/18/162149 Signed Impressions: Service Date/Time: Tuesday, October 18, 2016 22:13 - CONCLUSION: No evidence of acute infarct, hemorrhage, mass or edema. Moderate atrophy Amilcar Limon MD Chest X-Ray 10/18/162149 Signed Impressions: Service Date/Time: Tuesday, October 18, 2016 22:25 - CONCLUSION: No acute disease. No significant change has occurred. Amilcar Limon MD Cervical Spine CT 10/18/162149 Signed Impressions: Service Date/Time: Tuesday, October 18, 2016 22:13 - CONCLUSION: 1. Advanced degenerative disc disease. 2. No evidence of acute fracture or subluxation. Amilcar Limon MD Objective Remarks GENERAL: This is a thin, frail elderly female patient, in no apparent distress. EYES: EOMI. ENT: Nose without bleeding, purulent drainage. NECK: Trachea midline. No JVD. CARDIOVASCULAR: Regular rate and rhythm without murmurs RESPIRATORY: Breath sounds diminished, equal bilaterally. No wheezes or crackles GASTROINTESTINAL: Abdomen soft, non-tender, nondistended. No guarding. MUSCULOSKELETAL: Extremities without edema. No calf tenderness. NEUROLOGICAL: Awake and alert. Motor and sensory grossly within normal limits. Normal speech. A/P Problem List: (1) Acute bronchopneumonia ICD Code: J18.0 - Bronchopneumonia, unspecified organism (2) Nausea & vomiting ICD Code: R11.2 - Nausea with vomiting, unspecified (3) Diarrhea ICD Code: R19.7 - Diarrhea Status: Resolved (4) Atypical chest pain ICD Code: R07.89 - Other chest pain Assessment and Plan Acute bronchopneumonia - CT pulmonary angiogram negative for pulmonary embolus but shows patchy perihilar airspace disease most characteristic mild bronchopneumonia; mild to moderate centrilobular emphysema - antibiotics: continue Zosyn 4.5 grams IV q6h - follow up blood culture which are pending - continue Duo nebulizers q6h scheduled and every 4 hours as needed for wheezing - Supplemental oxygen via nasal cannula titrated to maintain oxygen saturation greater than 92% - encourage use of IS q1hr while awake Nausea/vomiting/diarrhea/abdominal pain/weight loss - check for c. difficile toxin, not yet available. - Stool for leukocytes and enteric pathogens - follow results Chest pain - Resolved, cardiac enzymes neg x 3 - Monitor vital signs DVT prophylaxis - Lovenox 40 mg subq q24h Discharge Planning f/u blood cx, if neg, will discharge as far as pt is clinically improving. Merlyn Judge MD Oct 20, 2016 10:23
[2016-10-20 12:18] LABS: AUTOMATED NEUTROPHIL # 9.8 TH/MM3 (1.8-7.7); BASOPHIL % 0.1 % (0.0-2.0); EOSINOPHIL # 0.1 TH/MM3 (0-0.4); EOSINOPHIL % 0.7 % (0.0-4.0); HEMATOCRIT 31.5 % (35.0-46.0); HEMO FLAGS DIFF FINAL; LYMPH % 26.3 % (9.0-44.0); MEAN CELL VOLUME 91.6 FL (80.0-100.0); MEAN CORPUSCULAR HEMOGLOBIN 31.5 PG (27.0-34.0); MEAN CORPUSCULAR HGB CONC 34.3 % (32.0-36.0); MONO % 8.8 % (0.0-8.0); NEUT % 64.1 % (16.0-70.0); PLATELET COUNT 141 TH/MM3 (150-450); RED BLOOD COUNT 3.44 MIL/MM3 (4.00-5.30); RED CELL DISTRIBUTION WIDTH 14.3 % (11.6-17.2); WHITE BLOOD COUNT 15.3 TH/MM3 (4.0-11.0)
[2016-10-20 12:26] LABS: BICARBONATE 21.8 MEQ/L (21.0-32.0)
[2016-10-20 12:33] LABS: POTASSIUM 2.8 MEQ/L (3.5-5.1)
--- NOTE | 2016-10-20 13:56 | EKG ---
Date Performed: 10/19/2016 Time Performed: 10:09:12 PTAGE: 86 years EKG: Sinus rhythm NONSPECIFIC T-WAVE ABNORMALITY BORDERLINE ECG PREVIOUS TRACING : 10/19/2016 01.47 Since the prior tracing, the inferolateral T-wave changes a re new. Clinical correlation will be important. DOCTOR: Gale Haines Interpretating Date/Time 10/20/2016 13:52:58
[2016-10-20] MEDS ORDERED: POTASSIUM CHLORIDE 20 MEQ CONTROLLED RELEASE TAB PO ONE (15:45)
[2016-10-20] MEDS ORDERED: POTASSIUM CHLOR 20 MEQ PREMIX 100 ML IV ONE (16:00)
[2016-10-21] VITALS (12 sets, daily range): BP systolic 113–175; BP diastolic 55–84; PULSE 88–118; RESP 16–20; TEMP 98.4–100.2; O2SAT 97–99
[2016-10-21] MEDS: RESP: ALBUTEROL 2.5 MG/IPRATROPIUM 0.5 MG NEB (SCH) NEB ×4 (03:23→21:24)
[2016-10-21] MEDS: PIPERACIL-TAZO 3.375 GM PREMIX 50 ML IV SCH ×4 (03:33→22:37)
[2016-10-21] MEDS: ENOXAPARIN SODIUM 40 MG/0.4 ML SYRINGE SQ SCH (05:06)
[2016-10-21] MEDS: ASPIRIN 81 MG CHEW TAB CHEW SCH (09:09)
[2016-10-21] MEDS: SODIUM CHLORIDE 0.9% FLUSH 10 ML FLUSH IV FLUSH SCH ×2 (09:09→22:36)
--- NOTE | 2016-10-21 11:19 | HHI.FF ---
Face to Face Verification Diagnosis: (1) Pneumonia Physical Therapy Order: Evaluate and Treat I have seen patient Annamaria Benitez on 10/21/16. My clinical findings support the need for the requested home health care services because: Physical therapy evaluated the pt and recommends home health PT Deconditioned w/ increased weakness I certify that my clinical findings support that this patient is homebound because: Physical therapy evaluated the pt and recommends home health PT Hx COPD- exertion dyspnea/weakness (PNA) Unsteady gait/balance Merlyn Judge MD Oct 21, 2016 11:19
[2016-10-21 11:34] LABS: AUTOMATED NEUTROPHIL # 8.7 TH/MM3 (1.8-7.7); BASOPHIL % 0.2 % (0.0-2.0); EOSINOPHIL # 0.2 TH/MM3 (0-0.4); EOSINOPHIL % 1.3 % (0.0-4.0); HEMATOCRIT 27.9 % (35.0-46.0); HEMO FLAGS DIFF FINAL; LYMPH % 16.7 % (9.0-44.0); LYMPHOCYTE # 1.9 TH/MM3 (1.0-4.8); MEAN CELL VOLUME 93.3 FL (80.0-100.0); MEAN CORPUSCULAR HEMOGLOBIN 31.7 PG (27.0-34.0); MEAN CORPUSCULAR HGB CONC 33.9 % (32.0-36.0); MONO % 5.7 % (0.0-8.0); NEUT % 76.1 % (16.0-70.0); PLATELET COUNT 141 TH/MM3 (150-450); RED BLOOD COUNT 2.99 MIL/MM3 (4.00-5.30); RED CELL DISTRIBUTION WIDTH 14.3 % (11.6-17.2); WHITE BLOOD COUNT 11.5 TH/MM3 (4.0-11.0)
--- NOTE | 2016-10-21 11:40 | HHI.PR ---
Subjective Remarks Pt feels well. SOB/Cough improved. no nausea or vomiting. no concerns at this time. no palpitations or CP.no lightheadedness or dizziness Objective Vitals Vital Signs Date Time Temp Pulse Resp B/P (MAP) Pulse Ox O2 Delivery O2 Flow Rate FiO2 10/21/16 08:05 98.4 91 16 131/62 (85) 98 10/21/16 07:47 95 10/21/16 07:43 98 21 10/21/16 04:15 97 10/21/16 03:26 99.4 99 18 139/64 (89) 98 10/21/16 00:00 102 10/20/16 23:46 100.0 105 16 122/57 (78) 99 10/20/16 20:47 98.0 112 16 117/56 (76) 98 10/20/16 20:30 98 10/20/16 20:09 110 10/20/16 18:20 90 10/20/16 15:29 98.7 96 16 150/64 (92) 98 10/20/16 12:51 100 I/O 10/20/16 10/20/16 10/20/16 10/21/16 10/21/16 10/21/16 07:00 15:00 23:00 07:00 15:00 23:00 Intake Total 340 ml 290 ml 143 ml Balance 340 ml 290 ml 143 ml Intake Oral 240 ml 240 ml IV Total 100 ml 50 ml 143 ml # Voids 2 Result Diagram: 10/20/16 1046 10/20/16 [address] Angiography 10/19/16 0037 Signed Impressions: Service Date/Time: Wednesday, October 19, 2016 01:13 - CONCLUSION: 1. Negative for pulmonary embolus. 2. Patchy perihilar airspace disease most characteristic of mild bronchopneumonia. 3. Mild to moderate centrilobular emphysema. 4. Improvement of previous peripheral lung consolidation right lower lobe with residual linear atelectasis, scarring and pleural thickening. Bryon Wolfe MD Head CT 10/18/162149 Signed Impressions: Service Date/Time: Tuesday, October 18, 2016 22:13 - CONCLUSION: No evidence of acute infarct, hemorrhage, mass or edema. Moderate atrophy Amilcar Limon MD Chest X-Ray 10/18/162149 Signed Impressions: Service Date/Time: Tuesday, October 18, 2016 22:25 - CONCLUSION: No acute disease. No significant change has occurred. Amilcar Limon MD Cervical Spine CT 10/18/162149 Signed Impressions: Service Date/Time: Tuesday, October 18, 2016 22:13 - CONCLUSION: 1. Advanced degenerative disc disease. 2. No evidence of acute fracture or subluxation. Amilcar Limon MD Objective Remarks GENERAL: This is a thin, frail elderly female patient, in no apparent distress. EYES: EOMI. ENT: Nose without bleeding, purulent drainage. NECK: Trachea midline. No JVD. CARDIOVASCULAR: Regular rate and rhythm without murmurs RESPIRATORY: Breath sounds diminished, equal bilaterally. No wheezes or crackles GASTROINTESTINAL: Abdomen soft, non-tender, nondistended. No guarding. MUSCULOSKELETAL: Extremities without edema. No calf tenderness. NEUROLOGICAL: Awake and alert. Motor and sensory grossly within normal limits. Normal speech. A/P Problem List: (1) Acute bronchopneumonia ICD Code: J18.0 - Bronchopneumonia, unspecified organism (2) Nausea & vomiting ICD Code: R11.2 - Nausea with vomiting, unspecified (3) Diarrhea ICD Code: R19.7 - Diarrhea Status: Resolved (4) Atypical chest pain ICD Code: R07.89 - Other chest pain Assessment and Plan Acute bronchopneumonia - CT pulmonary angiogram negative for pulmonary embolus but shows patchy perihilar airspace disease most characteristic mild bronchopneumonia; mild to moderate centrilobular emphysema - antibiotics: continue Zosyn 4.5 grams IV q6h. will switch to levaquin flagyl to cover for any aspiration PNA total of 5 additional days (discussed w Dr. Clark, not an official consult) - blood culture neg x 2 days - continue Duo nebulizers q6h scheduled and every 4 hours as needed for wheezing - Supplemental oxygen via nasal cannula titrated to maintain oxygen saturation greater than 92% - encourage use of IS q1hr while awake syncope: EKGs reviewed and one was concerning for atrial flutter. Will repeat. Reviewed TELE and shows tachycardia. consult cards as last EKG did have some t wave inversions as well. check carotid u/s, ECHO and orthostatics. No new episode reported since being in the hospital. Nausea/vomiting/diarrhea/abdominal pain/weight loss - check for c. difficile toxin, not yet available. - Stool for leukocytes and enteric pathogens - not available. no new report of diarrhea, Chest pain - Resolved, cardiac enzymes neg x 3 - cards consult DVT prophylaxis - Lovenox 40 mg subq q24h Discharge Planning awaiting carotid u/s, ECHO and cards recs prior to d/c Melryn Judge MD Oct 21, 2016 11:40
[2016-10-21 11:59] LABS: BICARBONATE 19.8 MEQ/L (21.0-32.0); MAGNESIUM 1.6 MG/DL (1.5-2.5); POTASSIUM 3.4 MEQ/L (3.5-5.1)
--- NOTE | 2016-10-21 13:10 | RADRPT ---
EXAM DATE/TIME: 10/21/2016 12:02 [facility] COMPARISON: US CAROTID ARTERIES, December 15, 2015, 22:23. INDICATIONS : Syncope. MEDICAL HISTORY : Hypertension. Hypercholesterolemia. Arthritis. Hyperlipidemia. Diabetes. Anticoagulant therapy. SURGICAL HISTORY : Appendectomy. Bilateral wrist surgery. ENCOUNTER: Initial ACUITY: 1 day PAIN SCORE: 0/10 LOCATION: Bilateral neck PEAK SYSTOLIC VELOCITIES (cm/sec): ICA/CCA RATIO: Right: 1.3 Left: 1.7 ICA: Right: 102 Left: 103 CCA: Right: 81 Left: 62 ECA: Right: 60 Left: 50 VERTEBRAL: Right: 75 antegrade Left: 69 antegrade Elevated flow velocities and ICA/CCA ratios have been found to correlate with increased degrees of vessel stenosis, calculated as percentage of diameter relative to a normal segment of distal ICA/CCA FINDINGS: RIGHT CAROTID: Mild eccentric calcified plaque. No significant flow-limiting stenosis. LEFT CAROTID: Mixed plaque extending from the carotid bulb to the bifurcation. Resultant mild, less than 50%, stenosis by grayscale imaging. VERTEBRAL ARTERIES: Antegrade flow is seen in both vertebral arteries. MISCELLANEOUS: None. CONCLUSION: 1. No significant flow-limiting stenosis on the right. 2. Mild, less than 50%, stenosis of the left internal carotid origin. 3. Antegrade vertebral artery flow bilaterally. Greg Lam MD on October 21, 2016 at 13:05 Board Certified Radiologist. This report was verified electronically.
[2016-10-21] MEDS: metroNIDAZOLE 500 MG TAB PO SCH ×2 (14:29→22:37)
[2016-10-21] MEDS ORDERED: MUPIROCIN 2% OINT 1 APPLIC/GM SYR EACH NARE SCH (14:30)
[2016-10-21] MEDS ORDERED: POVIDONE IODINE 5% (ANTISEPSIS KIT) 4 APPLICATIONS TOPICAL SCH (14:30)
[2016-10-21] MEDS ORDERED: CHLORHEXIDINE GLUCONATE 2 % 1 PACK (2 CLOTHS) TOPICAL SCH (14:30)
--- NOTE | 2016-10-21 17:23 | MB ---
cc: JOSEPH XIONG DATE OF CONSULTATION: 10/21/2016 REASON FOR CONSULTATION: Syncope, chest pain. HISTORY OF PRESENT ILLNESS: The patient is an 86 year-old -Romanian female, a poor historian, with a history of hypertension, diabetes, hyperlipidemia, bilateral pulmonary emboli last year, transient renal failure last year, who was brought to the hospital after an apparent syncopal episode in the bathroom. The patient states she did lose consciousness for unclear duration. She cannot recall having any preceding lightheadedness, nausea, pain. She also says that she has had considerable diarrhea over the last few days without nausea, vomiting, abdominal pain. For the most part, she is sedentary. The patient, who also has a history of paroxysmal supraventricular tachycardia, had an implantable loop recorder placed about two years ago due to episodes of unexplained syncope. PAST MEDICAL HISTORY: 1. Hypertension. 2. Diabetes. 3. Hyperlipidemia. 4. Paroxysmal supraventricular tachycardia. 5. Bilateral pulmonary emboli, November 2015. 6. Transient acute renal failure due to acute tubular necrosis August 2015. 7. History of at least two episodes of syncope, April 2014, and again 02/27/16. She has had loop recorder implanted with a six second pauses recorded on 04/28/16 and again on 10/03/16. CARDIAC MEDICATIONS AT HOME: Xarelto 20 mg daily. Atorvastatin 20 mg daily. ALLERGIES LISINOPRIL, HYDROCODONE, CODEINE FAMILY HISTORY Noncontributory. SOCIAL HISTORY The patient is a former smoker. She denies alcohol abuse. REVIEW OF SYSTEMS: As in the history of present illness otherwise negative or noncontributory. She also currently denies headache, visual changes, abdominal pain, bright red blood per rectum, melena, fevers. PHYSICAL EXAMINATION: On physical examination her blood pressure 113/55 with a pulse of 90, respirations 16. In general she is a well-developed thin -Romanian female in no acute distress. HEENT examination: Jugular venous pressure is normal. Carotid pulses are 2+ bilaterally and without bruits. Chest: Examination of the chest reveals diminished breath sounds at the bases. Cardiac examination: She has a regular rhythm and rate without S3, S4 or murmur. Abdomen: She has a soft, nontender abdomen. Bowel sounds are present. There is no definite hepatosplenomegaly. Extremities: No clubbing, cyanosis or edema. X-RAYS: Chest x-ray shows no acute disease. LABORATORY DATA: Includes WBC 11.5, hemoglobin 9.5, platelet count 141, potassium 3.4, BUN 13, creatinine 1.10, negative cardiac enzymes. EKG from 10/19/2016 shows sinus rhythm, nonspecific T-wave abnormality. IMPRESSION Recurrent syncope in this 86-year-old white female with a history of multiple episodes of syncope dating back to April 2014, history of sick sinus syndrome, diabetes, hypertension, hyperlipidemia, bilateral pulmonary emboli last year. The patient is a poor historian. Apparently she did lose consciousness in the bathroom at some point prior to admission. Her implantable loop recorder has recorded at least two episodes of prolonged asystole, one on 04/28/2016 and again 10/03/2016, six seconds in duration. In addition, she has paroxysmal supraventricular tachycardia with episodes recorded on her loop recorder up to 3 minutes and 48 seconds. 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 I have recommended she undergo permanent pacemaker implantation. The patient, however, adamantly declines a pacemaker. With respect to chest pain, the patient adamantly and repeatedly denies any recent chest discomforts. Cardiac enzymes are negative. In light of her advanced age, would recommend conservative management and evaluation. RECOMMENDATIONS Ideally the patient needs a permanent pacemaker implant, but she refuses at this time. 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 MD BRITTANY Peralta/MIRIAM /2:20 PM /5:04 PM OPAL
[2016-10-22] VITALS (27 sets, daily range): BP systolic 134–163; BP diastolic 64–77; PULSE 89–136; RESP 16–20; TEMP 98.4–100.7; O2SAT 95–99
[2016-10-22] MEDS: RESP: ALBUTEROL 2.5 MG/IPRATROPIUM 0.5 MG NEB (SCH) NEB ×4 (04:00→20:36)
[2016-10-22] MEDS: PIPERACIL-TAZO 3.375 GM PREMIX 50 ML IV SCH ×3 (04:17→16:00)
[2016-10-22] MEDS: metroNIDAZOLE 500 MG TAB PO SCH ×3 (05:41→20:58)
[2016-10-22 06:49] LABS: AUTOMATED NEUTROPHIL # 7.1 TH/MM3 (1.8-7.7); BASOPHIL % 0.4 % (0.0-2.0); EOSINOPHIL # 0.2 TH/MM3 (0-0.4); EOSINOPHIL % 1.9 % (0.0-4.0); HEMATOCRIT 28.9 % (35.0-46.0); HEMO FLAGS DIFF FINAL; LYMPH % 25.4 % (9.0-44.0); LYMPHOCYTE # 2.9 TH/MM3 (1.0-4.8); MEAN CELL VOLUME 92.7 FL (80.0-100.0); MEAN CORPUSCULAR HEMOGLOBIN 31.2 PG (27.0-34.0); MEAN CORPUSCULAR HGB CONC 33.7 % (32.0-36.0); MONO % 9.9 % (0.0-8.0); NEUT % 62.4 % (16.0-70.0); PLATELET COUNT 159 TH/MM3 (150-450); RED BLOOD COUNT 3.12 MIL/MM3 (4.00-5.30); RED CELL DISTRIBUTION WIDTH 14.3 % (11.6-17.2); WHITE BLOOD COUNT 11.4 TH/MM3 (4.0-11.0)
[2016-10-22 07:06] LABS: BICARBONATE 21.7 MEQ/L (21.0-32.0); POTASSIUM 3.5 MEQ/L (3.5-5.1)
[2016-10-22] MEDS: SODIUM CHLOR 0.9% 1000 ML INJ 1,000 ML IV SCH ×2 (08:00→16:00)
[2016-10-22] MEDS: SODIUM CHLORIDE 0.9% FLUSH 10 ML FLUSH IV FLUSH SCH ×2 (08:36→20:58)
[2016-10-22] MEDS: ASPIRIN 81 MG CHEW TAB CHEW SCH (08:36)
--- NOTE | 2016-10-22 08:43 | PD.CARD.PN ---
Subjective Subjective Remarks Denies further syncope. Denies CP, dyspnea, palpitations. Slept fairly well. Objective Medications Item Value Date Time Aspirin 162 mg 10/19/16 0900 (Aspirin Chew) DAILY/CHEW 10/21/16 0909 Vital Signs / I&O Vital Signs Date Time Temp Pulse Resp B/P (MAP) Pulse Ox O2 Delivery O2 Flow Rate FiO2 10/22/16 08:03 98 10/22/16 06:00 90 10/22/16 05:00 92 10/22/16 04:49 98 10/22/16 04:00 100.7 91 16 139/71 (93) 98 10/22/16 04:00 92 10/22/16 03:00 94 10/22/16 02:00 96 10/22/16 01:00 94 10/22/16 00:00 90 10/21/16 23:40 118 10/21/16 23:40 100.2 99 20 175/84 (114) 99 Manual Cuff/Auscultation 10/21/16 21:24 97 21 10/21/16 19:44 98.9 96 18 143/66 (91) 98 147/70 (95) 143/67 (92) 10/21/16 16:03 98.7 90 16 123/58 (79) 99 10/21/16 14:43 88 10/21/16 11:54 98.5 91 16 113/55 (74) 98 121/62 (81) 118/59 (78) I/O 10/21/16 10/21/16 10/21/16 10/22/16 10/22/16 10/22/16 06:59 14:59 22:59 06:59 14:59 22:59 Intake Total 340 ml 143 ml 50 ml 50 ml Output Total 300 ml Balance 340 ml 143 ml 50 ml -250 ml Intake Oral 240 ml 0 ml IV Total 100 ml 143 ml 50 ml 50 ml Output Urine Total 100 ml Stool Total 200 ml # Voids 2 Physical Exam GENERAL: Well developed, well nourished. No acute distress. HEENT: Jugular venous pressure is normal. CHEST: Lungs clear to auscultation bilaterally. Unlabored respiratory effort. CARDIAC: Regular rate and rhythm without S3, S4, or murmur. ABDOMEN: Soft, nontender, no hepatosplenomegaly. Bowel sounds present. EXTREMITIES: No clubbing, cyanosis, or edema. Laboratory Laboratory Tests Test 10/21/16 10:35 10/22/16 05:18 White Blood Count 11.5 TH/MM3 11.4 TH/MM3 Red Blood Count 2.99 MIL/MM3 3.12 MIL/MM3 Hemoglobin 9.5 GM/DL 9.7 GM/DL Hematocrit 27.9 % 28.9 % Mean Corpuscular Volume 93.3 FL 92.7 FL Mean Corpuscular Hemoglobin 31.7 PG 31.2 PG Mean Corpuscular Hemoglobin Concent 33.9 % 33.7 % Red Cell Distribution Width 14.3 % 14.3 % Platelet Count 141 TH/MM3 159 TH/MM3 Mean Platelet Volume 9.1 FL 9.1 FL Neutrophils (%) (Auto) 76.1 % 62.4 % Lymphocytes (%) (Auto) 16.7 % 25.4 % Monocytes (%) (Auto) 5.7 % 9.9 % Eosinophils (%) (Auto) 1.3 % 1.9 % Basophils (%) (Auto) 0.2 % 0.4 % Neutrophils # (Auto) 8.7 TH/MM3 7.1 TH/MM3 Lymphocytes # (Auto) 1.9 TH/MM3 2.9 TH/MM3 Monocytes # (Auto) 0.7 TH/MM3 1.1 TH/MM3 Eosinophils # (Auto) 0.2 TH/MM3 0.2 TH/MM3 Basophils # (Auto) 0.0 TH/MM3 0.0 TH/MM3 CBC Comment DIFF FINAL DIFF FINAL Differential Comment Blood Urea Nitrogen 13 MG/DL 12 MG/DL Creatinine 1.10 MG/DL 0.86 MG/DL Random Glucose 166 MG/DL 104 MG/DL Calcium Level 8.5 MG/DL 9.2 MG/DL Magnesium Level 1.6 MG/DL Sodium Level 139 MEQ/L 140 MEQ/L Potassium Level 3.4 MEQ/L 3.5 MEQ/L Chloride Level 110 MEQ/L 108 MEQ/L Carbon Dioxide Level 19.8 MEQ/L 21.7 MEQ/L Anion Gap 9 MEQ/L 10 MEQ/L Estimat Glomerular Filtration Rate 57 ML/MIN 76 ML/MIN Assessment and Plan Problem List: (1) Syncope ICD Codes: R55 - Syncope and collapse Status: Acute Plan: Stable overnight. Suspect her multiple episodes of syncope since 2014 due to sick sinus syndrome, intermittent episodes of asystole, as documented on her loop recorder. Patient now agreeable to pacemaker. To implant VVI pacer this afternoon. Hold Xarelto. (2) Paroxysmal supraventricular tachycardia ICD Codes: I47.1 - Supraventricular tachycardia Status: Chronic Plan: No recent SVT. Will consider starting Cardizem or metoprolol after pacemaker implanted. (3) HTN (hypertension) ICD Codes: I10 - Essential (primary) hypertension Status: Chronic Plan: Fluctuating BP's. Will likely start Cardizem as for her history of paroxysmal SVT after pacer implanted. (4) Bilateral pulmonary embolism ICD Codes: I26.99 - Other pulmonary embolism without acute cor pulmonale Status: Chronic Code Status full code Discussed Condition With patient and her son Problem Qualifiers (1) Syncope: Qualified Codes: R55 - Syncope and collapse (2) HTN (hypertension): Qualified Codes: I10 - Essential (primary) hypertension Chris Johnson MD Oct 22, 2016 08:43
--- NOTE | 2016-10-22 09:45 | HHI.PR ---
Subjective Remarks Pt states that she still has diarrhea. 3 episodes last night, none reported w day shift so far. No CP/SOB improved/Cough resolved. no nausea or vomiting. Pt is scheduled to go for permanent pacemaker this pm however Pt did have a Tmax of 101.7 overnight. Objective Vitals Vital Signs Date Time Temp Pulse Resp B/P (MAP) Pulse Ox O2 Delivery O2 Flow Rate FiO2 10/22/16 09:00 106 10/22/16 08:03 98 10/22/16 08:00 110 10/22/16 07:00 92 10/22/16 07:00 99.1 110 16 163/76 (105) 98 10/22/16 06:00 90 10/22/16 05:00 92 10/22/16 04:49 98 10/22/16 04:00 100.7 91 16 139/71 (93) 98 10/22/16 04:00 92 10/22/16 03:00 94 10/22/16 02:00 96 10/22/16 01:00 94 10/22/16 00:00 90 10/21/16 23:40 118 10/21/16 23:40 100.2 99 20 175/84 (114) 99 Manual Cuff/Auscultation 10/21/16 21:24 97 21 10/21/16 19:44 98.9 96 18 143/66 (91) 98 147/70 (95) 143/67 (92) 10/21/16 16:03 98.7 90 16 123/58 (79) 99 10/21/16 14:43 88 10/21/16 11:54 98.5 91 16 113/55 (74) 98 121/62 (81) 118/59 (78) I/O 10/21/16 10/21/16 10/21/16 10/22/16 10/22/16 10/22/16 07:00 15:00 23:00 07:00 15:00 23:00 Intake Total 290 ml 143 ml 50 ml 50 ml Output Total 300 ml Balance 290 ml 143 ml 50 ml -250 ml Intake Oral 240 ml 0 ml IV Total 50 ml 143 ml 50 ml 50 ml Output Urine Total 100 ml Stool Total 200 ml # Voids 2 Result Diagram: 10/22/16 0518 10/22/16 0518 Imaging Last Impressions Carotid Artery Ultrasound 10/21/16 0000 Signed Impressions: Service Date/Time: Friday, October 21, 2016 12:02 - CONCLUSION: 1. No significant flow-limiting stenosis on the right. 2. Mild, less than 50%%, stenosis of the left internal carotid origin. 3. Antegrade vertebral artery flow bilaterally. Greg Lam MD CT Angiography 10/19/16 0037 Signed Impressions: Service Date/Time: Wednesday, October 19, 2016 01:13 - CONCLUSION: 1. Negative for pulmonary embolus. 2. Patchy perihilar airspace disease most characteristic of mild bronchopneumonia. 3. Mild to moderate centrilobular emphysema. 4. Improvement of previous peripheral lung consolidation right lower lobe with residual linear atelectasis, scarring and pleural thickening. Bryon Wolfe MD Head CT 10/18/162149 Signed Impressions: Service Date/Time: Tuesday, October 18, 2016 22:13 - CONCLUSION: No evidence of acute infarct, hemorrhage, mass or edema. Moderate atrophy Amilcar Limon MD Chest X-Ray 10/18/162149 Signed Impressions: Service Date/Time: Tuesday, October 18, 2016 22:25 - CONCLUSION: No acute disease. No significant change has occurred. Amilcar Limon MD Cervical Spine CT 10/18/162149 Signed Impressions: Service Date/Time: Tuesday, October 18, 2016 22:13 - CONCLUSION: 1. Advanced degenerative disc disease. 2. No evidence of acute fracture or subluxation. Amilcar Limon MD Objective Remarks GENERAL: This is a thin, frail elderly female patient, in no apparent distress. EYES: EOMI. ENT: Nose without drainage. NECK: Trachea midline. No JVD. CARDIOVASCULAR: Regular rate and rhythm without murmurs RESPIRATORY: Breath sounds diminished, equal bilaterally. No wheezes GASTROINTESTINAL: Abdomen soft, non-tender, nondistended. No guarding. MUSCULOSKELETAL: Extremities without edema. No calf tenderness. NEUROLOGICAL: Awake and alert. Motor and sensory grossly within normal limits. Normal speech. A/P Problem List: (1) Acute bronchopneumonia ICD Code: J18.0 - Bronchopneumonia, unspecified organism (2) Nausea & vomiting ICD Code: R11.2 - Nausea with vomiting, unspecified (3) Diarrhea ICD Code: R19.7 - Diarrhea Status: Resolved (4) Atypical chest pain ICD Code: R07.89 - Other chest pain Assessment and Plan Acute bronchopneumonia/diarrhea/fever - CT pulmonary angiogram negative for pulmonary embolus but shows patchy perihilar airspace disease most characteristic mild bronchopneumonia; mild to moderate centrilobular emphysema - antibiotics: continue Zosyn 4.5 grams IV q6h and flagyl po (flagyl started yesterday). plan was to switch her to po levaquin/flagyl to cover for any aspiration PNA total of 5 additional days upon discharge, however pt had a Tmax of 100.7 overnight, repeat blood cx, get u/a, check C.diff and stool studies. - initial blood cultures neg to date. - continue Duo nebulizers q6h scheduled and every 4 hours as needed for wheezing - Supplemental oxygen via nasal cannula titrated to maintain oxygen saturation greater than 92% - encourage use of IS q1hr while awake syncope: cardiology following, concerns for sick sinus syndrome, intermittent episodes of asystole, as documented on her loop recorder. scheduled for permanent pacemaker this pm. Will notify cards about fever. carotid u/s no stenosis on the right and <50% on the left. ECHO not yet reported. Nausea/vomiting/diarrhea/abdominal pain/weight loss - check for c. difficile toxin, not yet available. - Stool for leukocytes and enteric pathogens - not available. GI consult Chest pain - Resolved, cardiac enzymes neg x 3 - cards following. DVT prophylaxis - Lovenox 40 mg subq q24h Discharge Planning d/c pending further work-up and clinical improvement. Merlyn Judge MD Oct 22, 2016 09:45
--- NOTE | 2016-10-22 10:33 | ECHRPT ---
Indication: Persistent atrial fibrillation CONCLUSIONS The left ventricular systolic function is mildly reduced with an estimated ejection fraction in the range of 45- 50%. Normal left ventricular size. Wall thickness is normal. There is moderate tricuspid valve regurgitation. The estimated pulmonary arterial pressure is 42 mmHg. BP: 131 / 62 HR: 100 Rhythm: Sinus MEASUREMENTS (Male / Female) Normal Values Technical Quality:Fair 2D ECHO LV Diastolic Diameter PLAX 3.0 cm 4.2 - 5.9 / 3.9 - 5.3 cm LV Systolic Diameter PLAX 2.4 cm IVS Diastolic Thickness 0.8 cm 0.6 - 1.0 / 0.6 - 0.9 cm LVPW Diastolic Thickness 0.8 cm 0.6 - 1.0 / 0.6 - 0.9 cm LV Relative Wall Thickness 0.5 RV Internal Dim ED PLAX 1.8 cm LVOT Diameter 1.7 cm M-MODE Aortic Root Diameter MM 2.7 cm LA Systolic Diameter MM 2.5 cm LA Ao Ratio MM 0.9 AV Cusp Separation MM 1.5 cm DOPPLER AV Peak Velocity 167.0 cm/s AV Peak Gradient 11.2 mmHg LVOT Peak Velocity 98.2 cm/s LVOT Peak Gradient 3.9 mmHg AV Area Cont Eq pk 1.3 cm MR Peak Velocity 309.0 cm/s MR Peak Gradient 38.2 mmHg Mitral E Point Velocity 63.2 cm/s Mitral A Point Velocity 77.0 cm/s Mitral E to A Ratio 0.8 LV E' Lateral Velocity 5.7 cm/s Mitral E to LV E' Lateral Ratio 11.2 LV E' Septal Velocity 6.8 cm/s Mitral E to LV E' Septal Ratio 9.3 TR Peak Velocity 282.0 cm/s TR Peak Gradient 31.8 mmHg PV Peak Velocity 103.0 cm/s PV Peak Gradient 4.2 mmHg FINDINGS LEFT VENTRICLE The left ventricular systolic function is mildly reduced with an estimated ejection fraction in the range of 45- 50%. Normal left ventricular size. Wall thickness is normal. RIGHT VENTRICLE Normal right ventricular size and systolic function. LEFT ATRIUM The left atrial size is normal. RIGHT ATRIUM The right atrial size is normal. ATRIAL SEPTUM Normal atrial septal thickness without atrial level shunting by limited color doppler interrogation. AORTA The aortic root and proximal ascending aorta are normal in size on limited imaging. MITRAL VALVE Trace mitral valve regurgitation. AORTIC VALVE Trileaflet aortic valve. No aortic valve stenosis or regurgitation. TRICUSPID VALVE There is moderate tricuspid valve regurgitation. The estimated pulmonary arterial pressure is 42 mmHg. PULMONARY VALVE The pulmonary valve is not well visualized. VESSELS The inferior vena cava is normal in size. PERICARDIUM No pericardial effusion. Ascencion Chaney MD (Electronically Signed) Final Date:22 October 2016 10:32
--- NOTE | 2016-10-22 11:53 | PD.ID.CON ---
History of Present Illness Service ID Consult Requested By Dr Judge Reason for Consult fever Primary Care Physician Unknown Diagnoses: History of Present Illness 86 yo female poor historian,history obtained via chart review The patient states that her son brought her to the hospital following a syncopal episode in the bathroom while sitting on the toilet and experiencing abdominal pain when she fell on the floor and lost consciousness She endorses a few days of diarrhea for at least a week occurring 3-4 times per day. Today she had just one BM She tested + for C.diff today She also reports losing nearly 50 pounds over the last year unintentionally due to poor appetite. She denies cough, sputum production of chest pain, her CXR was negative, byut CTA showed patchy perihilar airspace disease most characteristic of mild bronchopneumonia as well as improvement of previous peripheral lung consolidation right lower lobe with residual linear atelectasis, scarring and pleural thickening. She was started on zosyn She is followed by metal hardener for sick sinus syndrome, intermittent episodes of asystole, as documented on her loop recorder and pacer placement is planned Her blood clx are negative @ 3 days Review of Systems Except as stated in HPI: all other systems reviewed are Neg Past Family Social History Allergies: Coded Allergies: codeine (Verified Allergy, Severe, STATES SWELLING, 10/18/16) hydrocodone (Verified Allergy, Severe, SWELLING, 10/18/16) lisinopril (Verified Allergy, Severe, ANGIOEDEMA, 10/18/16) Past Medical History Hypertension Type 2 diabetes mellitus, diet controlled DVT on Xarelto Denies heart problems, irregular rhythms such as atrial fibrillation, asthma, COPD, emphysema, liver problems, kidney problems, PE, CVA, seizures, thyroid problems, or cancers. Past Surgical History Appendectomy Bilateral wrist surgery Dental extractions Active Ordered Medications Medications where reviewed in EMR Antibiotics Include: zosyn Family History reviewed non contrubtory Social History No curretn Tobacco. QUite 20 yrs ago occ ETOH. No Illicit Drugs. Physical Exam Vital Signs Vital Signs Date Time Temp Pulse Resp B/P (MAP) Pulse Ox O2 Delivery O2 Flow Rate FiO2 10/22/16 11:19 98.6 98 16 150/64 (92) 98 10/22/16 11:18 95 10/22/16 10:12 100 10/22/16 09:00 106 10/22/16 08:03 98 10/22/16 08:00 110 10/22/16 07:00 92 10/22/16 07:00 99.1 110 16 163/76 (105) 98 10/22/16 06:00 90 10/22/16 05:00 92 10/22/16 04:49 98 10/22/16 04:00 100.7 91 16 139/71 (93) 98 10/22/16 04:00 92 10/22/16 03:00 94 10/22/16 02:00 96 10/22/16 01:00 94 10/22/16 00:00 90 10/21/16 23:40 118 10/21/16 23:40 100.2 99 20 175/84 (114) 99 Manual Cuff/Auscultation 10/21/16 21:24 97 21 10/21/16 19:44 98.9 96 18 143/66 (91) 98 147/70 (95) 143/67 (92) 10/21/16 16:03 98.7 90 16 123/58 (79) 99 10/21/16 14:43 88 10/21/16 11:54 98.5 91 16 113/55 (74) 98 121/62 (81) 118/59 (78) Physical Exam CONSTITUTIONAL/GENERAL: This is an adequately nourished frail elderly patient, in no apparent distress. TUBES/LINES/DRAINS: SKIN: No jaundice, rashes, or lesions. Skin temperature appropriate. Not diaphoretic. HEAD: Atraumatic. Normocephalic. EYES: Pupils equal and round and reactive. Extraocular motions intact. No scleral icterus. No injection or drainage. Fundi not examined. ENT: Hearing grossly normal. Nose without bleeding or purulent drainage. Oral mucosae without visible erythema, exudates, masses, or lesions. NECK: Trachea midline. Supple, nontender. No palpable thyroid enlargement or nodularity. CARDIOVASCULAR: Regular rate and rhythm without murmurs, gallops, or rubs. No JVD. Peripheral pulses symmetric. RESPIRATORY/CHEST: Symmetric, unlabored respirations. Clear to auscultation. Breath sounds equal bilaterally. No wheezes, rales, or rhonchi. GASTROINTESTINAL: Abdomen soft, non-tender, nondistended. No hepato-splenomegaly , or palpable masses. No guarding. Bowel sounds present. GENITOURINARY: Without palpable bladder distension. MUSCULOSKELETAL: Extremities without clubbing, cyanosis, or edema. No joint tenderness or effusion noted. No calf tenderness. No mottling or clubbing. LYMPHATICS: No palpable cervical or supraclavicular adenopathy. NEUROLOGICAL: Awake and alert.Oriented x 2 Motor and sensory grossly within normal limits. Follows commands. Clear speech . Moves all extremities. + tremors PSYCHIATRIC: No obvious anxiety/depression. no apparent hallucinations or other psychotic thought process. Laboratory Laboratory Tests Test 10/22/16 05:18 White Blood Count 11.4 Red Blood Count 3.12 Hemoglobin 9.7 Hematocrit 28.9 Mean Corpuscular Volume 92.7 Mean Corpuscular Hemoglobin 31.2 Mean Corpuscular Hemoglobin Concent 33.7 Red Cell Distribution Width 14.3 Platelet Count 159 Mean Platelet Volume 9.1 Neutrophils (%) (Auto) 62.4 Lymphocytes (%) (Auto) 25.4 Monocytes (%) (Auto) 9.9 Eosinophils (%) (Auto) 1.9 Basophils (%) (Auto) 0.4 Neutrophils # (Auto) 7.1 Lymphocytes # (Auto) 2.9 Monocytes # (Auto) 1.1 Eosinophils # (Auto) 0.2 Basophils # (Auto) 0.0 CBC Comment DIFF FINAL Differential Comment Blood Urea Nitrogen 12 Creatinine 0.86 Random Glucose 104 Calcium Level 9.2 Sodium Level 140 Potassium Level 3.5 Chloride Level 108 Carbon Dioxide Level 21.7 Anion Gap 10 Estimat Glomerular Filtration Rate 76 Date/Time Source Procedure Growth Status 10/22/16 11:27 Blood Peripheral Aerobic Blood Culture Pending Received 10/22/16 11:27 Blood Peripheral Anaerobic Blood Culture Pending Received Result Diagram: 10/22/16 0518 10/22/16 0518 Imaging Last Impressions Carotid Artery Ultrasound 10/21/16 0000 Signed Impressions: Service Date/Time: Friday, October 21, 2016 12:02 - CONCLUSION: 1. No significant flow-limiting stenosis on the right. 2. Mild, less than 50%%, stenosis of the left internal carotid origin. 3. Antegrade vertebral artery flow bilaterally. Greg Lam MD CT Angiography 10/19/16 0037 Signed Impressions: Service Date/Time: Wednesday, October 19, 2016 01:13 - CONCLUSION: 1. Negative for pulmonary embolus. 2. Patchy perihilar airspace disease most characteristic of mild bronchopneumonia. 3. Mild to moderate centrilobular emphysema. 4. Improvement of previous peripheral lung consolidation right lower lobe with residual linear atelectasis, scarring and pleural thickening. Bryon Wolfe MD Head CT 10/18/162149 Signed Impressions: Service Date/Time: Tuesday, October 18, 2016 22:13 - CONCLUSION: No evidence of acute infarct, hemorrhage, mass or edema. Moderate atrophy Amilcar Limon MD Chest X-Ray 10/18/162149 Signed Impressions: Service Date/Time: Tuesday, October 18, 2016 22:25 - CONCLUSION: No acute disease. No significant change has occurred. Amilcar Limon MD Cervical Spine CT 10/18/162149 Signed Impressions: Service Date/Time: Tuesday, October 18, 2016 22:13 - CONCLUSION: 1. Advanced degenerative disc disease. 2. No evidence of acute fracture or subluxation. Amilcar Limon MD Assessment and Plan Assessment and Plan C.diff - moderate, non hypervirulent, 1st episode Syncope 2/2 sick sinus syndrome, intermittent episodes of asystole, as documented on her loop recorder. PPM placemnet planned Despite of CT apparent infiltrate, pt has no clinical signs of PNA dc zosyn cont oral flagyl if non responding clincially will switch to vanco po Discussed Condition With Dr Alfie Schuler,Zoey Kraft MD Oct 22, 2016 11:53
[2016-10-22 12:15] LABS: BACTERIA, URINE OCC /hpf; BLOOD, URINE MOD (NEG); COMMENT (UR) CULTURE INDICATED; CULTURE IF INDICATED CULTURE INDICATED; GLUCOSE,URINE NEG (NEG); KETONE, URINE TRACE mg/dL (NEG); MUCUS URINE FEW /lpf (OCC); NITRITE,URINE NEG (NEG); SQUAMOUS EPITHELIAL CELL URINE 10 /hpf (0-5)
[2016-10-22 12:30] LABS: URINE COLOR AMBER (YELLW/STRAW)
--- NOTE | 2016-10-22 13:00 | PD.CONS ---
HPI History of Present Illness This is a 86 year old who female was brought to the hospital for evaluation after a syncopal episode in her bathroom. She was admitted and is being evaluated by cardiology for syncope, paroxysmal supraventricular tachycardia, hypertension. Cardiology feels that her multiple episodes of syncope since 2014 are most likely secondary to sick sinus syndrome with intermittent episodes of asystole (as documented on her loop recorder) and recommend a pacemaker. She is going for this later this afternoon. GI has been consulted for diarrhea. The patient reports that she has had intermittent diarrhea for the past week. She tells me this is one loose stool per day without any blood or mucous, but both her family and nurse note that she has been having 3-4 episodes of loose stool per day. The nurse reports that the patient is having loose/liquid brown stool whenever the patient stands. She denies any fevers/ chills. She does report that she had one episode of nausea and vomiting last week, but no further episodes since then. She denies abdominal pain, hematochezia, melena. She does report that she has lost weight with this, but states her normal weight is 112 and she is currently 119.9. She was previously evaluated with EGD/Colonoscopy (10/09/14)---> mucosal hyperplasia and a moderate Schatzki ring this was biopsied, medium sized hiatal hernia, there was erythematous gastritis in the gastric antrum, multiple biopsies were performed, normal duodenal mucosa, normal endoscopy otherwise, moderate diverticulosis was noted throughout the entire examined colon, the colon mucosa was otherwise normal; multiple biopsies were performed, retroflexed views revealed no abnormalities, no abnormalities of the rectum. Pathology duodenal mucosa with milc changes of peptic duodenitis, the villous architecture is normal, antral mucosa with regenerative epithelial changes and moderate to marked active chronic gastritis. A cee stain is positive for numerous Helicobacter-like organisms. She was treated with Amoxicillin, Clarithromycin and PPI at that time. (Debra Caro) PFSH Past Medical History H. Pylori Gastritis Schatzki ring Hiatal hernia Diverticulosis Hypertension Type 2 diabetes mellitus, diet controlled DVT on Xarelto Past Surgical History Appendectomy Bilateral wrist surgery Dental extractions (Debra Caro) Coded Allergies: codeine (Verified Allergy, Severe, STATES SWELLING, 10/18/16) hydrocodone (Verified Allergy, Severe, SWELLING, 10/18/16) lisinopril (Verified Allergy, Severe, ANGIOEDEMA, 10/18/16) Medications Allergies Coded Allergies Type Severity Reaction Last Updated Verified codeine Allergy Severe STATES SWELLING 10/18/16 Yes hydrocodone Allergy Severe SWELLING 10/18/16 Yes lisinopril Allergy Severe ANGIOEDEMA 10/18/16 Yes Active Scripts Medications Dose Route/Sig Max Daily Dose Days Date Category Atorvastatin (Atorvastatin Calcium) 20 Mg Tab 20 Mg PO DAILY 10/18/16 Reported Xarelto (Rivaroxaban) 20 Mg Tab 20 Mg PO DAILY 10/18/16 Reported Mirtazapine 15 Mg Tab 15 Mg PO HS 12/14/15 Reported Family History Mother with hypertension Social History Tobacco: quit 20 years ago Alcohol: 1 alcoholic beverage/dalia per day (Debra Caro) Review of Systems Constitutional: COMPLAINS OF: Diaphoretic episodes, Fatigue, Dizziness, DENIES : Fever, Weight loss, Chills Respiratory: DENIES: Cough Cardiovascular: COMPLAINS OF: Syncope, DENIES: Chest pain Gastrointestinal: COMPLAINS OF: Diarrhea, Nausea, Vomiting, DENIES: Abdominal pain, Black stools, Bloody stools, Constipation, Heartburn, Hematemesis Musculoskeletal: COMPLAINS OF: Joint pain, DENIES: Back pain Integumentary: DENIES: Abnormal pigmentation Hematologic/lymphatic: DENIES: Bruising Psychiatric: DENIES: Confusion (Debra Caro) GI Exam Vitals I&O Vital Signs Date Time Temp Pulse Resp B/P (MAP) Pulse Ox O2 Delivery O2 Flow Rate FiO2 10/22/16 12:20 100 10/22/16 11:19 98.6 98 16 150/64 (92) 98 10/22/16 11:18 95 10/22/16 10:12 100 10/22/16 09:00 106 10/22/16 08:03 98 10/22/16 08:00 110 10/22/16 07:00 92 10/22/16 07:00 99.1 110 16 163/76 (105) 98 10/22/16 06:00 90 10/22/16 05:00 92 10/22/16 04:49 98 10/22/16 04:00 100.7 91 16 139/71 (93) 98 10/22/16 04:00 92 10/22/16 03:00 94 10/22/16 02:00 96 10/22/16 01:00 94 10/22/16 00:00 90 10/21/16 23:40 118 10/21/16 23:40 100.2 99 20 175/84 (114) 99 Manual Cuff/Auscultation 10/21/16 21:24 97 21 10/21/16 19:44 98.9 96 18 143/66 (91) 98 147/70 (95) 143/67 (92) 10/21/16 16:03 98.7 90 16 123/58 (79) 99 10/21/16 14:43 88 I/O 10/21/16 10/21/16 10/21/16 10/22/16 10/22/16 10/22/16 07:00 15:00 23:00 07:00 15:00 23:00 Intake Total 290 ml 143 ml 50 ml 50 ml Output Total 300 ml Balance 290 ml 143 ml 50 ml -250 ml Intake Oral 240 ml 0 ml IV Total 50 ml 143 ml 50 ml 50 ml Output Urine Total 100 ml Stool Total 200 ml # Voids 2 Imaging Last Impressions Carotid Artery Ultrasound 10/21/16 0000 Signed Impressions: Service Date/Time: Friday, October 21, 2016 12:02 - CONCLUSION: 1. No significant flow-limiting stenosis on the right. 2. Mild, less than 50%%, stenosis of the left internal carotid origin. 3. Antegrade vertebral artery flow bilaterally. Greg Lam MD CT Angiography 10/19/16 0037 Signed Impressions: Service Date/Time: Wednesday, October 19, 2016 01:13 - CONCLUSION: 1. Negative for pulmonary embolus. 2. Patchy perihilar airspace disease most characteristic of mild bronchopneumonia. 3. Mild to moderate centrilobular emphysema. 4. Improvement of previous peripheral lung consolidation right lower lobe with residual linear atelectasis, scarring and pleural thickening. Bryon Wolfe MD Head CT 10/18/162149 Signed Impressions: Service Date/Time: Tuesday, October 18, 2016 22:13 - CONCLUSION: No evidence of acute infarct, hemorrhage, mass or edema. Moderate atrophy Amilcar Limon MD Chest X-Ray 10/18/162149 Signed Impressions: Service Date/Time: Tuesday, October 18, 2016 22:25 - CONCLUSION: No acute disease. No significant change has occurred. Amilcar Limon MD Cervical Spine CT 10/18/160 Signed Impressions: Service Date/Time: Tuesday, October 18, 2016 22:13 - CONCLUSION: 1. Advanced degenerative disc disease. 2. No evidence of acute fracture or subluxation. Amilcar Limon MD Laboratory Test 10/22/16 05:18 10/22/16 11:06 White Blood Count 11.4 TH/MM3 Red Blood Count 3.12 MIL/MM3 Hemoglobin 9.7 GM/DL Hematocrit 28.9 % Mean Corpuscular Volume 92.7 FL Mean Corpuscular Hemoglobin 31.2 PG Mean Corpuscular Hemoglobin Concent 33.7 % Red Cell Distribution Width 14.3 % Platelet Count 159 TH/MM3 Mean Platelet Volume 9.1 FL Neutrophils (%) (Auto) 62.4 % Lymphocytes (%) (Auto) 25.4 % Monocytes (%) (Auto) 9.9 % Eosinophils (%) (Auto) 1.9 % Basophils (%) (Auto) 0.4 % Neutrophils # (Auto) 7.1 TH/MM3 Lymphocytes # (Auto) 2.9 TH/MM3 Monocytes # (Auto) 1.1 TH/MM3 Eosinophils # (Auto) 0.2 TH/MM3 Basophils # (Auto) 0.0 TH/MM3 CBC Comment DIFF FINAL Differential Comment Blood Urea Nitrogen 12 MG/DL Creatinine 0.86 MG/DL Random Glucose 104 MG/DL Calcium Level 9.2 MG/DL Sodium Level 140 MEQ/L Potassium Level 3.5 MEQ/L Chloride Level 108 MEQ/L Carbon Dioxide Level 21.7 MEQ/L Anion Gap 10 MEQ/L Estimat Glomerular Filtration Rate 76 ML/MIN Urine Color FREDERICK Urine Turbidity HAZY Urine pH 6.0 Urine Specific [place] 1.033 Urine Protein TRACE mg/dL Urine Glucose (UA) NEG mg/dL Urine Ketones TRACE mg/dL Urine Occult Blood MOD Urine Nitrite NEG Urine Bilirubin MOD Urine Urobilinogen LESS THAN 2.0 MG/DL Urine Leukocyte Esterase LARGE Urine RBC 59 /hpf Urine WBC 13 /hpf Urine WBC Clumps OCC Urine Squamous Epithelial Cells 10 /hpf Urine Bacteria OCC /hpf Urine Mucus FEW /lpf Urine Yeast (Budding) FEW Microscopic Urinalysis Comment CULTURE INDICATED Date/Time Source Procedure Growth Status 10/22/16 11:27 Blood Peripheral Aerobic Blood Culture Pending Received 10/22/16 11:27 Blood Peripheral Anaerobic Blood Culture Pending Received 10/22/16 11:06 Stool Stool Cryptosporidium Exam Pending Received 10/22/16 11:06 Stool Stool Stool Pus (WENDI) Pending Received 10/22/16 11:06 Stool Stool Giardia Antigen (WENDI) Pending Received 10/22/16 11:06 Urine Clean Catch Urine Culture Pending Received Physical Examination HEENT: Normocephalic; atraumatic; no jaundice. . CHEST: CTA CARDIAC: RRR ABDOMEN: Soft, nondistended, nontender; no hepatosplenomegaly; bowel sounds are present in all four quadrants. EXTREMITIES: No clubbing, cyanosis, or edema. SKIN: Normal; no rash; no jaundice. 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 (Debra Caro) Assessment and Plan Plan ASSESSMENT: - C Difficile Diarrhea x 1 week. No recent abx, no new meds, no recent travel. Does not know of any questionable food. 3-4 liquid/loose stools per day. CDifficile PCR (+), Epid 027 (-). First episode. Flagyl started. EGD/ Colonoscopy (10/09/14)---> mucosal hyperplasia and a moderate Schatzki ring this was biopsied, medium sized hiatal hernia, there was erythematous gastritis in the gastric antrum, multiple biopsies were performed, normal duodenal mucosa, normal endoscopy otherwise, moderate diverticulosis was noted throughout the entire examined colon, the colon mucosa was otherwise normal; multiple biopsies were performed, retroflexed views revealed no abnormalities , no abnormalities of the rectum. Pathology duodenal mucosa with mild changes of peptic duodenitis, the villous architecture is normal, antral mucosa with regenerative epithelial changes and moderate to marked active chronic gastritis. A cee stain is positive for numerous Helicobacter-like organisms. She was treated with Amoxicillin, Clarithromycin and PPI at that time. Cont. Flagyl. - Syncope, chest pain. Cardiology following, suspects sss. Going for pacemaker today. - Bronchopneumonia. Abx per ID PLAN: - NPO for procedure - Cont. Flagyl per ID recommendations - Monitor labs - Monitor stool output - Supportive care - Further recommendations to follow based on results of above - Pt seen and examined by Dr. Lima and myself and this note is written on her behalf (Debra Caro) Physician Comments seen, examined agree with above we will reevaluate after pacemaker placement (Miladys Lima MD) Debra Caro Oct 22, 2016 13:00 Miladys Lima MD Oct 22, 2016 16:39
[2016-10-22 13:12] LABS: C. DIFF EPI 027 PRESUMPTIVE NEGATIVE (NEGATIVE)
[2016-10-22] MEDS ORDERED: ceFAZolin INJ 1,000 MG in SODIUM CHLORIDE 0.9% INJ 250 ML IV ONE (14:00)
[2016-10-22] MEDS ORDERED: VANCOMYCIN INJ 1,000 MG in SODIUM CHLOR 0.9% 250 ML INJ 250 ML IV SCH (14:00)
[2016-10-23] VITALS (29 sets, daily range): BP systolic 113–156; BP diastolic 53–79; PULSE 69–113; RESP 20; TEMP 98.9–100.7; O2SAT 98–100
[2016-10-23] MEDS: metroNIDAZOLE 500 MG TAB PO SCH ×3 (05:26→21:34)
--- NOTE | 2016-10-23 06:44 | PD.CARD.PN ---
Subjective Subjective Remarks No CP, dizziness, near syncope, dyspnea. Slept well. Objective Medications Item Value Date Time Aspirin 162 mg 10/19/16 0900 (Aspirin Chew) DAILY/CHEW 10/22/16 0836 Vital Signs / I&O Vital Signs Date Time Temp Pulse Resp B/P (MAP) Pulse Ox O2 Delivery O2 Flow Rate FiO2 10/23/16 06:00 96 10/23/16 05:19 99.8 92 20 130/67 (88) 98 10/23/16 05:00 112 10/23/16 04:00 113 10/23/16 03:00 98 10/23/16 02:00 94 10/23/16 01:00 98 10/23/16 00:00 100.7 94 20 156/79 (104) 99 10/23/16 00:00 96 10/22/16 23:00 96 10/22/16 22:00 104 10/22/16 21:00 136 10/22/16 20:38 95 10/22/16 20:00 100.1 90 20 141/74 (96) 99 10/22/16 20:00 92 10/22/16 20:00 97 10/22/16 18:00 90 10/22/16 17:21 105 10/22/16 16:00 110 10/22/16 15:00 98.4 98 16 134/77 (96) 95 10/22/16 15:00 106 10/22/16 14:42 89 10/22/16 13:17 91 10/22/16 12:20 100 10/22/16 11:19 98.6 98 16 150/64 (92) 98 10/22/16 11:18 95 10/22/16 10:12 100 10/22/16 09:00 106 10/22/16 08:03 98 10/22/16 08:00 110 10/22/16 07:00 92 10/22/16 07:00 99.1 110 16 163/76 (105) 98 I/O 10/22/16 10/22/16 10/22/16 10/23/16 10/23/16 10/23/16 07:00 15:00 23:00 07:00 15:00 23:00 Intake Total 50 ml 1020 ml 240 ml Output Total 300 ml 400 ml 200 ml Balance -250 ml 620 ml 40 ml Intake Oral 0 ml 500 ml 240 ml IV Total 50 ml 520 ml 0 ml Output Urine Total 100 ml 400 ml 200 ml Stool Total 200 ml # Voids 1 # Bowel Movements 0 3 Physical Exam GENERAL: Well developed, well nourished. No acute distress. HEENT: Jugular venous pressure is normal. CHEST: Lungs clear to auscultation bilaterally. Unlabored respiratory effort. CARDIAC: Regular rate and rhythm without S3, S4, or murmur. ABDOMEN: Soft, nontender, no hepatosplenomegaly. Bowel sounds present. EXTREMITIES: No clubbing, cyanosis, or edema. Laboratory Laboratory Tests Test 10/22/16 11:06 Urine Color FREDERICK Urine Turbidity HAZY Urine pH 6.0 Urine Specific [place] 1.033 Urine Protein TRACE mg/dL Urine Glucose (UA) NEG mg/dL Urine Ketones TRACE mg/dL Urine Occult Blood MOD Urine Nitrite NEG Urine Bilirubin MOD Urine Urobilinogen LESS THAN 2.0 MG/DL Urine Leukocyte Esterase LARGE Urine RBC 59 /hpf Urine WBC 13 /hpf Urine WBC Clumps OCC Urine Squamous Epithelial Cells 10 /hpf Urine Bacteria OCC /hpf Urine Mucus FEW /lpf Urine Yeast (Budding) FEW Microscopic Urinalysis Comment CULTURE INDICATED Stool C. difficile Toxin (PCR) POSITIVE Stl C. difficile Toxin Epiderm 027 PRESUMPTIVE NEGATIVE Assessment and Plan Problem List: (1) Syncope ICD Codes: R55 - Syncope and collapse Status: Acute Plan: Stable overnight. Suspect her multiple episodes of syncope since 2014 due to sick sinus syndrome, intermittent episodes of asystole, as documented on her loop recorder. Pacer implant delayed yesterday due to ongoing diarrhea, C. difficile infection. Will tentatively plan pacer implant Wednesday PM. Hold Xarelto. Dr. Hagan to see PRN over the weekend. (2) Paroxysmal supraventricular tachycardia ICD Codes: I47.1 - Supraventricular tachycardia Status: Chronic Plan: No recent SVT. Will consider starting Cardizem or metoprolol after pacemaker implanted. (3) HTN (hypertension) ICD Codes: I10 - Essential (primary) hypertension Status: Chronic Plan: Fluctuating BP's. Normotensive this morning. Will likely start Cardizem as for her history of paroxysmal SVT after pacer implanted. (4) Bilateral pulmonary embolism ICD Codes: I26.99 - Other pulmonary embolism without acute cor pulmonale Status: Chronic Code Status full code Discussed Condition With patient Problem Qualifiers (1) Syncope: Qualified Codes: R55 - Syncope and collapse (2) HTN (hypertension): Qualified Codes: I10 - Essential (primary) hypertension Chris Johnson MD Oct 23, 2016 06:44
[2016-10-23] MEDS: SODIUM CHLOR 0.9% 1000 ML INJ 1,000 ML IV SCH ×3 (08:00→16:00)
[2016-10-23] MEDS: SODIUM CHLORIDE 0.9% FLUSH 10 ML FLUSH IV FLUSH SCH ×2 (08:47→21:35)
[2016-10-23] MEDS: ASPIRIN 81 MG CHEW TAB CHEW SCH (08:47)
--- NOTE | 2016-10-23 11:44 | HHI.PR ---
Subjective Remarks Pt feels better. Tells me that she only had one BM today and it was loose. Discussed w RN, pt had 3 loose stools last night but none this morning. Pt continues to have temps up to 100.7 pt denies any CP/SOB/N/V/lightheadedness Objective Vitals Vital Signs Date Time Temp Pulse Resp B/P (MAP) Pulse Ox O2 Delivery O2 Flow Rate FiO2 10/23/16 11:40 99 10/23/16 11:39 98.9 94 20 131/69 (89) 100 10/23/16 10:28 98 10/23/16 09:31 86 10/23/16 08:00 88 10/23/16 07:00 99.1 86 20 134/78 (96) 99 10/23/16 07:00 99 10/23/16 06:00 96 10/23/16 05:19 99.8 92 20 130/67 (88) 98 10/23/16 05:00 112 10/23/16 04:00 113 10/23/16 03:00 98 10/23/16 02:00 94 10/23/16 01:00 98 10/23/16 00:00 100.7 94 20 156/79 (104) 99 10/23/16 00:00 96 10/22/16 23:00 96 10/22/16 22:00 104 10/22/16 21:00 136 10/22/16 20:38 95 10/22/16 20:00 100.1 90 20 141/74 (96) 99 10/22/16 20:00 92 10/22/16 20:00 97 10/22/16 18:00 90 10/22/16 17:21 105 10/22/16 16:00 110 10/22/16 15:00 98.4 98 16 134/77 (96) 95 10/22/16 15:00 106 10/22/16 14:42 89 10/22/16 13:17 91 10/22/16 12:20 100 I/O 10/22/16 10/22/16 10/22/16 10/23/16 10/23/16 10/23/16 06:59 14:59 22:59 06:59 14:59 22:59 Intake Total 50 ml 1020 ml 240 ml Output Total 300 ml 400 ml 200 ml Balance -250 ml 620 ml 40 ml Intake Oral 0 ml 500 ml 240 ml IV Total 50 ml 520 ml 0 ml Output Urine Total 100 ml 400 ml 200 ml Stool Total 200 ml # Voids 1 # Bowel Movements 0 3 Result Diagram: 10/22/1651710/22/16517 Imaging Last Impressions Carotid Artery Ultrasound 10/21/16 0000 Signed Impressions: Service Date/Time: Friday, October 21, 2016 12:02 - CONCLUSION: 1. No significant flow-limiting stenosis on the right. 2. Mild, less than 50%%, stenosis of the left internal carotid origin. 3. Antegrade vertebral artery flow bilaterally. Greg Lam MD CT Angiography 10/19/16 0037 Signed Impressions: Service Date/Time: Wednesday, October 19, 2016 01:13 - CONCLUSION: 1. Negative for pulmonary embolus. 2. Patchy perihilar airspace disease most characteristic of mild bronchopneumonia. 3. Mild to moderate centrilobular emphysema. 4. Improvement of previous peripheral lung consolidation right lower lobe with residual linear atelectasis, scarring and pleural thickening. Bryon Wolfe MD Head CT 10/18/162149 Signed Impressions: Service Date/Time: Tuesday, October 18, 2016 22:13 - CONCLUSION: No evidence of acute infarct, hemorrhage, mass or edema. Moderate atrophy Amilcar Limon MD Chest X-Ray 10/18/162149 Signed Impressions: Service Date/Time: Tuesday, October 18, 2016 22:25 - CONCLUSION: No acute disease. No significant change has occurred. Amilcar Limon MD Cervical Spine CT 10/18/162149 Signed Impressions: Service Date/Time: Tuesday, October 18, 2016 22:13 - CONCLUSION: 1. Advanced degenerative disc disease. 2. No evidence of acute fracture or subluxation. Amilcar Limon MD Objective Remarks GENERAL: This is a thin, frail elderly female patient, in no apparent distress. EYES: EOMI. ENT: Nose without drainage. NECK: Trachea midline. No JVD. CARDIOVASCULAR: Regular rate and rhythm without murmurs RESPIRATORY: Breath sounds diminished, equal bilaterally. No wheezes GASTROINTESTINAL: Abdomen soft, non-tender, nondistended. No guarding. MUSCULOSKELETAL: Extremities without edema. No calf tenderness. NEUROLOGICAL: Awake and alert. Motor and sensory grossly within normal limits. Normal speech. A/P Problem List: (1) Acute bronchopneumonia ICD Code: J18.0 - Bronchopneumonia, unspecified organism (2) Nausea & vomiting ICD Code: R11.2 - Nausea with vomiting, unspecified (3) Diarrhea ICD Code: R19.7 - Diarrhea Status: Resolved (4) Atypical chest pain ICD Code: R07.89 - Other chest pain Assessment and Plan Acute bronchopneumonia/diarrhea/fever - CT pulmonary angiogram negative for pulmonary embolus but shows patchy perihilar airspace disease most characteristic mild bronchopneumonia; mild to moderate centrilobular emphysema - antibiotics:s/p Zosyn. now on flagyl due to C. Diff. ID following. - initial blood cultures neg to date. - continue Duo nebulizers q6h scheduled and every 4 hours as needed for wheezing - Supplemental oxygen via nasal cannula titrated to maintain oxygen saturation greater than 92% - encourage use of IS q1hr while awake syncope: cardiology following, concerns for sick sinus syndrome, intermittent episodes of asystole, as documented on her loop recorder. carotid u/s no stenosis on the right and <50% on the left. ECHO w EF 45-50%. Review report. Pt schedule tentatively for permanent pacemaker wednesday in pm Nausea/vomiting/diarrhea/abdominal pain/weight loss - c. difficile toxin pos. on flagyl - Stool for leukocytes and enteric pathogens - pending. GI following. Chest pain - Resolved, cardiac enzymes neg x 3 - cards following. DVT prophylaxis - Lovenox 40 mg subq q24h Discharge Planning continue po flagyl tentative permanent pacemaker on wednesday Merlyn Judge MD Oct 23, 2016 11:44
--- NOTE | 2016-10-23 17:22 | HHI.GIFU ---
Subjective Remarks Resting in bed. She is feeling much better today. She reports 2 loose stools, but states this has improved. No abdominal pain. (Debra Caro) Objective Vitals I&O Vital Signs Date Time Temp Pulse Resp B/P (MAP) Pulse Ox O2 Delivery O2 Flow Rate FiO2 10/23/16 17:02 89 10/23/16 16:17 79 10/23/16 15:23 99.4 85 20 113/53 (73) 100 10/23/16 15:20 83 10/23/16 14:59 84 10/23/16 13:49 69 10/23/16 12:11 83 10/23/16 11:40 99 10/23/16 11:39 98.9 94 20 131/69 (89) 100 10/23/16 10:28 98 10/23/16 09:31 86 10/23/16 08:00 88 10/23/16 07:00 99.1 86 20 134/78 (96) 99 10/23/16 07:00 99 10/23/16 06:00 96 10/23/16 05:19 99.8 92 20 130/67 (88) 98 10/23/16 05:00 112 10/23/16 04:00 113 10/23/16 03:00 98 10/23/16 02:00 94 10/23/16 01:00 98 10/23/16 00:00 100.7 94 20 156/79 (104) 99 10/23/16 00:00 96 10/22/16 23:00 96 10/22/16 22:00 104 10/22/16 21:00 136 10/22/16 20:38 95 10/22/16 20:00 100.1 90 20 141/74 (96) 99 10/22/16 20:00 92 10/22/16 20:00 97 10/22/16 18:00 90 10/22/16 17:21 105 I/O 10/22/16 10/22/16 10/22/16 10/23/16 10/23/16 10/23/16 07:00 15:00 23:00 07:00 15:00 23:00 Intake Total 50 ml 1020 ml 240 ml 600 ml Output Total 300 ml 400 ml 200 ml 400 ml Balance -250 ml 620 ml 40 ml 200 ml Intake Oral 0 ml 500 ml 240 ml 600 ml IV Total 50 ml 520 ml 0 ml 0 ml Output Urine Total 100 ml 400 ml 200 ml 400 ml Stool Total 200 ml # Voids 1 # Bowel Movements 0 3 1 Laboratory Date/Time Source Procedure Growth Status 10/22/16 11:27 Blood Peripheral Aerobic Blood Culture - Preliminary NO GROWTH IN 1 DAY Resulted 10/22/16 11:27 Blood Peripheral Anaerobic Blood Culture - Preliminary NO GROWTH IN 1 DAY Resulted 10/22/16 11:06 Stool Stool Cryptosporidium Exam Pending Resulted 10/22/16 11:06 Stool Stool Stool Pus (WENDI) - Final NO WBC'S SEEN Resulted 10/22/16 11:06 Stool Stool Giardia Antigen (WENDI) Pending Resulted 10/22/16 11:06 Urine Clean Catch Urine Culture - Final Kelli Albicans Complete Imaging Last Impressions Carotid Artery Ultrasound 10/21/16 0000 Signed Impressions: Service Date/Time: Friday, October 21, 2016 12:02 - CONCLUSION: 1. No significant flow-limiting stenosis on the right. 2. Mild, less than 50%%, stenosis of the left internal carotid origin. 3. Antegrade vertebral artery flow bilaterally. Greg Lam MD CT Angiography 10/19/167 Signed Impressions: Service Date/Time: Wednesday, October 19, 2016 01:13 - CONCLUSION: 1. Negative for pulmonary embolus. 2. Patchy perihilar airspace disease most characteristic of mild bronchopneumonia. 3. Mild to moderate centrilobular emphysema. 4. Improvement of previous peripheral lung consolidation right lower lobe with residual linear atelectasis, scarring and pleural thickening. Bryon Wolfe MD Head CT 10/18/162149 Signed Impressions: Service Date/Time: Tuesday, October 18, 2016 22:13 - CONCLUSION: No evidence of acute infarct, hemorrhage, mass or edema. Moderate atrophy Amilcar Limon MD Chest X-Ray 10/18/162149 Signed Impressions: Service Date/Time: Tuesday, October 18, 2016 22:25 - CONCLUSION: No acute disease. No significant change has occurred. Amilcar Limon MD Cervical Spine CT 10/18/162149 Signed Impressions: Service Date/Time: Tuesday, October 18, 2016 22:13 - CONCLUSION: 1. Advanced degenerative disc disease. 2. No evidence of acute fracture or subluxation. Amilcar Limon MD Physical Exam HEENT: Normocephalic; atraumatic; no jaundice. CHEST: Resp even/unlabored, diminished CARDIAC: RRR ABDOMEN: Soft, nondistended, nontender; no hepatosplenomegaly; bowel sounds are present in all four quadrants. EXTREMITIES: No clubbing, cyanosis, or edema. SKIN: Normal; no rash; no jaundice. 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 (Debra Caro) Assessment and Plan Plan ASSESSMENT: - C Difficile Diarrhea x 1 week. No recent abx, no new meds, no recent travel. Does not know of any questionable food. 3-4 liquid/loose stools per day. CDifficile PCR (+), Epid 027 (-). First episode. Flagyl started. EGD/ Colonoscopy (10/09/14)---> mucosal hyperplasia and a moderate Schatzki ring this was biopsied, medium sized hiatal hernia, there was erythematous gastritis in the gastric antrum, multiple biopsies were performed, normal duodenal mucosa, normal endoscopy otherwise, moderate diverticulosis was noted throughout the entire examined colon, the colon mucosa was otherwise normal; multiple biopsies were performed, retroflexed views revealed no abnormalities , no abnormalities of the rectum. Pathology duodenal mucosa with mild changes of peptic duodenitis, the villous architecture is normal, antral mucosa with regenerative epithelial changes and moderate to marked active chronic gastritis. A cee stain is positive for numerous Helicobacter-like organisms. She was treated with Amoxicillin, Clarithromycin and PPI at that time. Cont. Flagyl. Seems to be improving with this. - Syncope, chest pain. Cardiology following, suspects sss. PPM placement was cancelled yesterday secondary to infection. Tentatively plan for Wednesday. - Bronchopneumonia. Abx per ID PLAN: - ABI - Cont. Flagyl per ID recommendations - Monitor labs - Monitor stool output - Supportive care - Cardiology following - ID following - Further recommendations to follow based on results of above - Pt seen and examined by Dr. Lima and myself and this note is written on her behalf (Debra Caro) Debra Caro Oct 23, 2016 17:22 Miladys Lima MD Oct 23, 2016 20:10
--- NOTE | 2016-10-23 18:16 | HHI.IDPN ---
Subjective Subjective Remarks diarrhea improved cont to remain febrile, though today < 100 F on NC O2 no cough, no SOB Antibiotics po flagyl Allergies: Coded Allergies: codeine (Verified Allergy, Severe, STATES SWELLING, 10/18/16) hydrocodone (Verified Allergy, Severe, SWELLING, 10/18/16) lisinopril (Verified Allergy, Severe, ANGIOEDEMA, 10/18/16) Objective . Vital Signs Date Time Temp Pulse Resp B/P (MAP) Pulse Ox O2 Delivery O2 Flow Rate FiO2 10/23/16 17:29 99 21 10/23/16 17:02 89 10/23/16 16:17 79 10/23/16 15:23 99.4 85 20 113/53 (73) 100 10/23/16 15:20 83 10/23/16 14:59 84 10/23/16 13:49 69 10/23/16 12:11 83 10/23/16 11:40 99 10/23/16 11:39 98.9 94 20 131/69 (89) 100 10/23/16 10:28 98 10/23/16 09:31 86 10/23/16 08:00 88 10/23/16 07:00 99.1 86 20 134/78 (96) 99 10/23/16 07:00 99 10/23/16 06:00 96 10/23/16 05:19 99.8 92 20 130/67 (88) 98 10/23/16 05:00 112 10/23/16 04:00 113 10/23/16 03:00 98 10/23/16 02:00 94 10/23/16 01:00 98 10/23/16 00:00 100.7 94 20 156/79 (104) 99 10/23/16 00:00 96 10/22/16 23:00 96 10/22/16 22:00 104 10/22/16 21:00 136 10/22/16 20:38 95 10/22/16 20:00 100.1 90 20 141/74 (96) 99 10/22/16 20:00 92 10/22/16 20:00 97 10/23/16 10/23/16 10/24/16 15:00 23:00 07:00 Intake Total 600 ml Output Total 400 ml Balance 200 ml Intake Oral 600 ml IV Total 0 ml Output Urine Total 400 ml # Bowel Movements 1 . Laboratory Tests Test 10/22/16 05:18 White Blood Count 11.4 TH/MM3 Red Blood Count 3.12 MIL/MM3 Hemoglobin 9.7 GM/DL Hematocrit 28.9 % Mean Corpuscular Volume 92.7 FL Mean Corpuscular Hemoglobin 31.2 PG Mean Corpuscular Hemoglobin Concent 33.7 % Red Cell Distribution Width 14.3 % Platelet Count 159 TH/MM3 Mean Platelet Volume 9.1 FL Neutrophils (%) (Auto) 62.4 % Lymphocytes (%) (Auto) 25.4 % Monocytes (%) (Auto) 9.9 % Eosinophils (%) (Auto) 1.9 % Basophils (%) (Auto) 0.4 % Neutrophils # (Auto) 7.1 TH/MM3 Lymphocytes # (Auto) 2.9 TH/MM3 Monocytes # (Auto) 1.1 TH/MM3 Eosinophils # (Auto) 0.2 TH/MM3 Basophils # (Auto) 0.0 TH/MM3 CBC Comment DIFF FINAL Differential Comment Laboratory Tests Test 10/22/16 05:18 Blood Urea Nitrogen 12 MG/DL Creatinine 0.86 MG/DL Random Glucose 104 MG/DL Calcium Level 9.2 MG/DL Sodium Level 140 MEQ/L Potassium Level 3.5 MEQ/L Chloride Level 108 MEQ/L Carbon Dioxide Level 21.7 MEQ/L Anion Gap 10 MEQ/L Estimat Glomerular Filtration Rate 76 ML/MIN Microbiology Date/Time Source Procedure Growth Status 10/22/16 11:27 Blood Peripheral Aerobic Blood Culture - Preliminary NO GROWTH IN 1 DAY Resulted 10/22/16 11:27 Blood Peripheral Anaerobic Blood Culture - Preliminary NO GROWTH IN 1 DAY Resulted 10/22/16 11:20 Blood Peripheral Aerobic Blood Culture - Preliminary NO GROWTH IN 1 DAY Resulted 10/22/16 11:20 Blood Peripheral Anaerobic Blood Culture - Preliminary NO GROWTH IN 1 DAY Resulted 10/22/16 11:06 Stool Stool Cryptosporidium Exam Pending Resulted 10/22/16 11:06 Stool Stool Stool Pus (WENDI) - Final NO WBC'S SEEN Resulted 10/22/16 11:06 Stool Stool Giardia Antigen (WENDI) Pending Resulted 10/22/16 11:06 Stool Stool - Final NO ENTERIC PATHOGENS DETECTED BY PCR... Complete 10/22/16 11:06 Urine Clean Catch Urine Culture - Final Kelli Albicans Complete Imaging Last Impressions Carotid Artery Ultrasound 10/21/16 0000 Signed Impressions: Service Date/Time: Friday, October 21, 2016 12:02 - CONCLUSION: 1. No significant flow-limiting stenosis on the right. 2. Mild, less than 50%%, stenosis of the left internal carotid origin. 3. Antegrade vertebral artery flow bilaterally. Greg Lam MD CT Angiography 10/19/16 0037 Signed Impressions: Service Date/Time: Wednesday, October 19, 2016 01:13 - CONCLUSION: 1. Negative for pulmonary embolus. 2. Patchy perihilar airspace disease most characteristic of mild bronchopneumonia. 3. Mild to moderate centrilobular emphysema. 4. Improvement of previous peripheral lung consolidation right lower lobe with residual linear atelectasis, scarring and pleural thickening. Bryon Wolfe MD Head CT 10/18/162149 Signed Impressions: Service Date/Time: Tuesday, October 18, 2016 22:13 - CONCLUSION: No evidence of acute infarct, hemorrhage, mass or edema. Moderate atrophy Amilcar Limon MD Chest X-Ray 10/18/162149 Signed Impressions: Service Date/Time: Tuesday, October 18, 2016 22:25 - CONCLUSION: No acute disease. No significant change has occurred. Amilcar Limon MD Cervical Spine CT 10/18/162149 Signed Impressions: Service Date/Time: Tuesday, October 18, 2016 22:13 - CONCLUSION: 1. Advanced degenerative disc disease. 2. No evidence of acute fracture or subluxation. Amilcar Limon MD Physical Exam CONSTITUTIONAL/GENERAL: This is an adequately nourished frail elderly patient, in no apparent distress. TUBES/LINES/DRAINS: SKIN: No jaundice, rashes, or lesions. Skin temperature appropriate. Not diaphoretic. EYES: Pupils equal and round and reactive. Extraocular motions intact. No scleral icterus. No injection or drainage. Fundi not examined. ENT: Hearing grossly normal. N Oral mucosae without visible erythema, exudates , masses, or lesions. CARDIOVASCULAR: Regular rate and rhythm without murmurs, gallops, or rubs. No JVD. Peripheral pulses symmetric. RESPIRATORY/CHEST: Symmetric, unlabored respirations. Clear to auscultation. Breath sounds equal bilaterally. No wheezes, rales, or rhonchi. GASTROINTESTINAL: Abdomen soft, non-tender, nondistended. No hepato-splenomegaly , or palpable masses. MUSCULOSKELETAL: Extremities without clubbing, cyanosis, or edema. NEUROLOGICAL: Awake and alert.Oriented x 2 Motor and sensory grossly within normal limits. Follows commands. Clear speech . Moves all extremities. + tremors PSYCHIATRIC:calm and cooperative Assessment & Plan Remarks C.diff - moderate, non hypervirulent, 1st episode Syncope 2/2 sick sinus syndrome, intermittent episodes of asystole, as documented on her loop recorder. PPM placemnet planned Despite of CT apparent infiltrate, pt has no clinical signs of PNA Persistent low grade fever monitor fever, WBC cont oral flagyl; if no ffever, nl WBC and resolved diarrhea will Rx with oral flagyl x 10-14 days if non responding clincially will switch to vanco Zoey Hernández RN, MD Oct 23, 2016 18:15
[2016-10-24] VITALS (25 sets, daily range): BP systolic 128–153; BP diastolic 70–95; PULSE 74–90; RESP 18–20; TEMP 98.6–99.2; O2SAT 94–100
[2016-10-24] MEDS: SODIUM CHLOR 0.9% 1000 ML INJ 1,000 ML IV SCH
[2016-10-24] MEDS: metroNIDAZOLE 500 MG TAB PO SCH ×3 (05:42→20:47)
[2016-10-24 07:08] LABS: AUTOMATED NEUTROPHIL # 4.9 TH/MM3 (1.8-7.7); BASOPHIL % 0.3 % (0.0-2.0); EOSINOPHIL # 0.3 TH/MM3 (0-0.4); EOSINOPHIL % 3.1 % (0.0-4.0); HEMATOCRIT 30.4 % (35.0-46.0); HEMO FLAGS DIFF FINAL; LYMPH % 25.6 % (9.0-44.0); LYMPHOCYTE # 2.1 TH/MM3 (1.0-4.8); MEAN CELL VOLUME 93.1 FL (80.0-100.0); MEAN CORPUSCULAR HGB CONC 33.3 % (32.0-36.0); MONO % 11.7 % (0.0-8.0); NEUT % 59.3 % (16.0-70.0); PLATELET COUNT 251 TH/MM3 (150-450); RED BLOOD COUNT 3.26 MIL/MM3 (4.00-5.30); RED CELL DISTRIBUTION WIDTH 14.7 % (11.6-17.2); WHITE BLOOD COUNT 8.3 TH/MM3 (4.0-11.0)
[2016-10-24] MEDS: ASPIRIN 81 MG CHEW TAB CHEW SCH (09:16)
--- NOTE | 2016-10-24 09:23 | HHI.GIFU ---
Subjective Remarks Resting in bed. States she is feeling good. 4 BM documented in the EMR, but patient reports that she has only had one so far today. No abdominal pain. States she has decided not to have pacemaker- encouraged patient to speak with cardiology today. (Debra Caro) Objective Vitals I&O Vital Signs Date Time Temp Pulse Resp B/P (MAP) Pulse Ox O2 Delivery O2 Flow Rate FiO2 10/24/16 07:58 83 10/24/16 06:00 77 10/24/16 05:00 80 10/24/16 04:12 99.1 82 20 142/75 (97) 97 10/24/16 04:00 88 10/24/16 03:00 90 10/24/16 02:00 88 10/24/16 01:00 82 10/24/16 00:41 99.2 87 20 153/78 (103) 100 10/24/16 00:00 82 10/23/16 23:00 80 10/23/16 22:00 80 10/23/16 21:00 82 10/23/16 20:25 99.1 85 20 146/73 (97) 100 10/23/16 20:00 88 10/23/16 19:00 90 10/23/16 18:27 83 10/23/16 17:29 99 21 10/23/16 17:02 89 10/23/16 16:17 79 10/23/16 15:23 99.4 85 20 113/53 (73) 100 10/23/16 15:20 83 10/23/16 14:59 84 10/23/16 13:49 69 10/23/16 12:11 83 10/23/16 11:40 99 10/23/16 11:39 98.9 94 20 131/69 (89) 100 10/23/16 10:28 98 10/23/16 09:31 86 I/O 10/23/16 10/23/16 10/23/16 10/24/16 10/24/16 10/24/16 07:00 15:00 23:00 07:00 15:00 23:00 Intake Total 240 ml 600 ml 300 ml Output Total 200 ml 400 ml 600 ml Balance 40 ml 200 ml -300 ml Intake Oral 240 ml 600 ml 300 ml IV Total 0 ml 0 ml Output Urine Total 200 ml 400 ml 600 ml # Voids 1 # Bowel Movements 3 1 3 Laboratory Laboratory Tests Test 10/24/16 06:33 White Blood Count 8.3 Red Blood Count 3.26 Hemoglobin 10.1 Hematocrit 30.4 Mean Corpuscular Volume 93.1 Mean Corpuscular Hemoglobin 31.0 Mean Corpuscular Hemoglobin Concent 33.3 Red Cell Distribution Width 14.7 Platelet Count 251 Mean Platelet Volume 7.9 Neutrophils (%) (Auto) 59.3 Lymphocytes (%) (Auto) 25.6 Monocytes (%) (Auto) 11.7 Eosinophils (%) (Auto) 3.1 Basophils (%) (Auto) 0.3 Neutrophils # (Auto) 4.9 Lymphocytes # (Auto) 2.1 Monocytes # (Auto) 1.0 Eosinophils # (Auto) 0.3 Basophils # (Auto) 0.0 CBC Comment DIFF FINAL Differential Comment Date/Time Source Procedure Growth Status 10/22/16 11:27 Blood Peripheral Aerobic Blood Culture - Preliminary NO GROWTH IN 1 DAY Resulted 10/22/16 11:27 Blood Peripheral Anaerobic Blood Culture - Preliminary NO GROWTH IN 1 DAY Resulted 10/22/16 11:06 Stool Stool Cryptosporidium Exam Pending Resulted 10/22/16 11:06 Stool Stool Stool Pus (WENDI) - Final NO WBC'S SEEN Resulted 10/22/16 11:06 Stool Stool Giardia Antigen (WENDI) Pending Resulted 10/22/16 11:06 Urine Clean Catch Urine Culture - Final Kelli Albicans Complete Imaging Last Impressions Carotid Artery Ultrasound 10/21/16 0000 Signed Impressions: Service Date/Time: Friday, October 21, 2016 12:02 - CONCLUSION: 1. No significant flow-limiting stenosis on the right. 2. Mild, less than 50%%, stenosis of the left internal carotid origin. 3. Antegrade vertebral artery flow bilaterally. Greg Lam MD CT Angiography 10/19/16 0037 Signed Impressions: Service Date/Time: Wednesday, October 19, 2016 01:13 - CONCLUSION: 1. Negative for pulmonary embolus. 2. Patchy perihilar airspace disease most characteristic of mild bronchopneumonia. 3. Mild to moderate centrilobular emphysema. 4. Improvement of previous peripheral lung consolidation right lower lobe with residual linear atelectasis, scarring and pleural thickening. Bryon Wolfe MD Head CT 10/18/162149 Signed Impressions: Service Date/Time: Tuesday, October 18, 2016 22:13 - CONCLUSION: No evidence of acute infarct, hemorrhage, mass or edema. Moderate atrophy Amilcar Limon MD Chest X-Ray 10/18/162149 Signed Impressions: Service Date/Time: Tuesday, October 18, 2016 22:25 - CONCLUSION: No acute disease. No significant change has occurred. Amilcar Limon MD Cervical Spine CT 10/18/162149 Signed Impressions: Service Date/Time: Tuesday, October 18, 2016 22:13 - CONCLUSION: 1. Advanced degenerative disc disease. 2. No evidence of acute fracture or subluxation. Amilcar Limon MD Physical Exam HEENT: Normocephalic; atraumatic; no jaundice. CHEST: Resp even/unlabored, diminished CARDIAC: RRR ABDOMEN: Soft, nondistended, nontender; no hepatosplenomegaly; bowel sounds are present in all four quadrants. EXTREMITIES: No clubbing, cyanosis, or edema. SKIN: Normal; no rash; no jaundice. 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 (Debra Caro) Assessment and Plan Plan ASSESSMENT: - C Difficile Diarrhea x 1 week. No recent abx, no new meds, no recent travel. Does not know of any questionable food. 3-4 liquid/loose stools per day. CDifficile PCR (+), Epid 027 (-). First episode. Flagyl started. Cont. Flagyl. Seems to be improving with this. Reports 1 stool so far today. - Anemia. EGD/Colonoscopy (10/09/14)---> mucosal hyperplasia and a moderate Schatzki ring this was biopsied, medium sized hiatal hernia, there was erythematous gastritis in the gastric antrum, multiple biopsies were performed, normal duodenal mucosa, normal endoscopy otherwise, moderate diverticulosis was noted throughout the entire examined colon, the colon mucosa was otherwise normal; multiple biopsies were performed, retroflexed views revealed no abnormalities, no abnormalities of the rectum. Pathology duodenal mucosa with mild changes of peptic duodenitis, the villous architecture is normal, antral mucosa with regenerative epithelial changes and moderate to marked active chronic gastritis. A cee stain is positive for numerous Helicobacter-like organisms. She was treated with Amoxicillin, Clarithromycin and PPI at that time. - Syncope, chest pain. Cardiology following, suspects sss. PPM placement was cancelled last week secondary to infection. The plan is tentatively for Wednesday, but patient is now stating that she does not want to have PPM placed. Encouraged patient to discuss with cardiology - Bronchopneumonia. Abx per ID PLAN: - ABI - Cont. Flagyl per ID recommendations - Monitor labs - Monitor stool output - Supportive care - Cardiology following - ID following - Further recommendations to follow based on results of above - Pt seen and examined by Dr. Abraham and myself and this note is written on his behalf (Debra Caro) Physician Comments Seen and examined with OCTAVIA, doing well. C. diff being managed by ID, gi will sign off, reconsult as needed. Thank you (Kirby Abraham MD) Debra Caro Oct 24, 2016 09:23 Kirby Abraham MD Oct 24, 2016 11:06
--- NOTE | 2016-10-24 10:43 | HHI.PR ---
Subjective Remarks Pt tells me that she only had a loose BM however discussed w RN, pt had 4 BMs last night. Pt also states that she doesn't want to get a pacemaker because she doesn't know Dr. Johnson and never met him in the office and would like the opinion of her drive tester however she doesn't know who that is but states its in the same office as Dr. Johnson and her son would know and she will ask him. She states that if "it's my time to go then let me go". However, she does want to know what her drive tester think regarding getting a pacemaker. No CP/SOB/abd pain/n/v Objective Vitals Vital Signs Date Time Temp Pulse Resp B/P (MAP) Pulse Ox O2 Delivery O2 Flow Rate FiO2 10/24/16 07:58 83 10/24/16 06:00 77 10/24/16 05:00 80 10/24/16 04:12 99.1 82 20 142/75 (97) 97 10/24/16 04:00 88 10/24/16 03:00 90 10/24/16 02:00 88 10/24/16 01:00 82 10/24/16 00:41 99.2 87 20 153/78 (103) 100 10/24/16 00:00 82 10/23/16 23:00 80 10/23/16 22:00 80 10/23/16 21:00 82 10/23/16 20:25 99.1 85 20 146/73 (97) 100 10/23/16 20:00 88 10/23/16 19:00 90 10/23/16 18:27 83 10/23/16 17:29 99 21 10/23/16 17:02 89 10/23/16 16:17 79 10/23/16 15:23 99.4 85 20 113/53 (73) 100 10/23/16 15:20 83 10/23/16 14:59 84 10/23/16 13:49 69 10/23/16 12:11 83 10/23/16 11:40 99 10/23/16 11:39 98.9 94 20 131/69 (89) 100 I/O 10/23/16 10/23/16 10/23/16 10/24/16 10/24/16 10/24/16 07:00 15:00 23:00 07:00 15:00 23:00 Intake Total 240 ml 600 ml 300 ml Output Total 200 ml 400 ml 600 ml Balance 40 ml 200 ml -300 ml Intake Oral 240 ml 600 ml 300 ml IV Total 0 ml 0 ml Output Urine Total 200 ml 400 ml 600 ml # Voids 1 # Bowel Movements 3 1 3 Result Diagram: 10/24/16 0633 10/22/16 0518 Imaging Last Impressions Carotid Artery Ultrasound 10/21/16 0000 Signed Impressions: Service Date/Time: Friday, October 21, 2016 12:02 - CONCLUSION: 1. No significant flow-limiting stenosis on the right. 2. Mild, less than 50%%, stenosis of the left internal carotid origin. 3. Antegrade vertebral artery flow bilaterally. Greg Lam MD CT Angiography 10/19/167 Signed Impressions: Service Date/Time: Wednesday, October 19, 2016 01:13 - CONCLUSION: 1. Negative for pulmonary embolus. 2. Patchy perihilar airspace disease most characteristic of mild bronchopneumonia. 3. Mild to moderate centrilobular emphysema. 4. Improvement of previous peripheral lung consolidation right lower lobe with residual linear atelectasis, scarring and pleural thickening. Bryon Wolfe MD Head CT 10/18/162149 Signed Impressions: Service Date/Time: Tuesday, October 18, 2016 22:13 - CONCLUSION: No evidence of acute infarct, hemorrhage, mass or edema. Moderate atrophy Amilcar Limon MD Chest X-Ray 10/18/162149 Signed Impressions: Service Date/Time: Tuesday, October 18, 2016 22:25 - CONCLUSION: No acute disease. No significant change has occurred. Amilcar Limon MD Cervical Spine CT 10/18/162149 Signed Impressions: Service Date/Time: Tuesday, October 18, 2016 22:13 - CONCLUSION: 1. Advanced degenerative disc disease. 2. No evidence of acute fracture or subluxation. Amilcar Limon MD Objective Remarks GENERAL: This is a thin, frail elderly female patient, in no apparent distress. EYES: EOMI. ENT: Nose without drainage. NECK: Trachea midline. No JVD. CARDIOVASCULAR: Regular rate and rhythm without murmurs RESPIRATORY: Breath sounds diminished, equal bilaterally. No wheezes GASTROINTESTINAL: Abdomen soft, non-tender, nondistended. No guarding. MUSCULOSKELETAL: Extremities without edema. No calf tenderness. NEUROLOGICAL: Awake and alert. Motor and sensory grossly within normal limits. Normal speech. A/P Problem List: (1) Acute bronchopneumonia ICD Code: J18.0 - Bronchopneumonia, unspecified organism (2) Nausea & vomiting ICD Code: R11.2 - Nausea with vomiting, unspecified (3) Diarrhea ICD Code: R19.7 - Diarrhea Status: Resolved (4) Atypical chest pain ICD Code: R07.89 - Other chest pain Assessment and Plan Acute bronchopneumonia/diarrhea/fever - CT pulmonary angiogram negative for pulmonary embolus but shows patchy perihilar airspace disease most characteristic mild bronchopneumonia; mild to moderate centrilobular emphysema - antibiotics:s/p Zosyn. now on flagyl due to C. Diff. ID following. - initial blood cultures neg to date. - continue Duo nebulizers q6h scheduled and every 4 hours as needed for wheezing - Supplemental oxygen via nasal cannula titrated to maintain oxygen saturation greater than 92% - encourage use of IS q1hr while awake syncope: cardiology following, concerns for sick sinus syndrome, intermittent episodes of asystole, as documented on her loop recorder. carotid u/s no stenosis on the right and <50% on the left. ECHO w EF 45-50%. Review report. Pt schedule tentatively for permanent pacemaker wednesday in pm, however pt wishes to speak w her drive tester but doesn't know who it is but son does. She will ask him and notify RN who it is. To be discussed w pt's drive tester on wednesday as pt wishes to have his opinion. Hopefully her C.diff improves by then in the event she choses to proceed w the procedure in the PM. Nausea/vomiting/diarrhea/abdominal pain/weight loss - c. difficile toxin pos. on flagyl - Stool enteric pathogens neg other stool studies still pending. GI following. Chest pain - Resolved, cardiac enzymes neg x 3 - cards following. DVT prophylaxis - Lovenox 40 mg subq q24h Discharge Planning continue po flagyl tentative permanent pacemaker on wednesday however pt would like to speak w her own drive tester wednesday morning to decide if she would like to proceed w pacemaker. Merlyn Judge MD Oct 24, 2016 10:43
[2016-10-24] MEDS: SODIUM CHLORIDE 0.9% FLUSH 10 ML FLUSH IV FLUSH SCH (20:47)
[2016-10-25] VITALS (28 sets, daily range): BP systolic 114–161; BP diastolic 57–104; PULSE 42–84; RESP 16–17; TEMP 97.7–98.6; O2SAT 99–100
[2016-10-25] MEDS: metroNIDAZOLE 500 MG TAB PO SCH ×3 (05:10→20:49)
[2016-10-25 07:09] LABS: AUTOMATED NEUTROPHIL # 4.4 TH/MM3 (1.8-7.7); BASOPHIL % 0.5 % (0.0-2.0); EOSINOPHIL # 0.2 TH/MM3 (0-0.4); EOSINOPHIL % 2.8 % (0.0-4.0); HEMATOCRIT 30.3 % (35.0-46.0); HEMO FLAGS DIFF FINAL; LYMPH % 27.8 % (9.0-44.0); LYMPHOCYTE # 2.2 TH/MM3 (1.0-4.8); MEAN CELL VOLUME 92.9 FL (80.0-100.0); MEAN CORPUSCULAR HEMOGLOBIN 31.7 PG (27.0-34.0); MEAN CORPUSCULAR HGB CONC 34.1 % (32.0-36.0); MONO % 12.1 % (0.0-8.0); NEUT % 56.8 % (16.0-70.0); PLATELET COUNT 259 TH/MM3 (150-450); RED BLOOD COUNT 3.26 MIL/MM3 (4.00-5.30); RED CELL DISTRIBUTION WIDTH 14.1 % (11.6-17.2); WHITE BLOOD COUNT 7.8 TH/MM3 (4.0-11.0)
[2016-10-25 07:12] LABS: BICARBONATE 21.7 MEQ/L (21.0-32.0); POTASSIUM 3.2 MEQ/L (3.5-5.1)
[2016-10-25] MEDS: SODIUM CHLOR 0.9% 1000 ML INJ 1,000 ML IV SCH ×3 (08:00→16:00)
[2016-10-25] MEDS: ASPIRIN 81 MG CHEW TAB CHEW SCH (09:36)
[2016-10-25] MEDS: SODIUM CHLORIDE 0.9% FLUSH 10 ML FLUSH IV FLUSH SCH ×2 (09:36→20:49)
--- NOTE | 2016-10-25 11:09 | HHI.PR ---
Subjective Remarks States she has not had any stooling today. Hopefully to have pacemaker placed tomorrow October 26 Discussed with patient and RN Hep-Lock IV Replace potassium A.m. labs Objective Vitals Vital Signs Date Time Temp Pulse Resp B/P (MAP) Pulse Ox O2 Delivery O2 Flow Rate FiO2 10/25/16 10:00 72 10/25/16 09:00 74 10/25/16 08:00 72 10/25/16 07:45 98.4 81 17 145/75 (98) 99 10/25/16 07:00 81 10/25/16 06:05 82 10/25/16 05:14 81 10/25/16 04:21 97.7 42 158/104 (122) 100 10/25/16 04:00 77 10/25/16 03:00 77 10/25/16 02:13 80 10/25/16 01:02 76 10/25/16 00:43 98.6 73 158/84 (108) 100 10/25/16 00:00 76 10/24/16 23:00 77 10/24/16 22:24 94 21 10/24/16 22:00 74 10/24/16 21:00 74 10/24/16 20:00 80 10/24/16 20:00 98.6 81 150/76 (100) 99 10/24/16 19:00 78 10/24/16 18:00 98.7 76 18 153/95 (114) 94 10/24/16 17:00 76 10/24/16 15:00 76 10/24/16 13:42 98.6 79 20 150/77 (101) 98 10/24/16 13:00 76 I/O 10/24/16 10/24/16 10/24/16 10/25/16 10/25/16 10/25/16 07:00 15:00 23:00 07:00 15:00 23:00 Intake Total 300 ml 360 ml 480 ml Output Total 600 ml 500 ml Balance -300 ml -140 ml 480 ml Intake Oral 300 ml 360 ml 480 ml Output Urine Total 600 ml 500 ml # Voids 1 3 # Bowel Movements 3 1 Result Diagram: 10/25/1662510/25/16625 Other Results Laboratory Tests Test 10/24/16 06:33 10/25/16 06:26 White Blood Count 8.3 TH/MM3 7.8 TH/MM3 Red Blood Count 3.26 MIL/MM3 3.26 MIL/MM3 Hemoglobin 10.1 GM/DL 10.3 GM/DL Hematocrit 30.4 % 30.3 % Mean Corpuscular Volume 93.1 FL 92.9 FL Mean Corpuscular Hemoglobin 31.0 PG 31.7 PG Mean Corpuscular Hemoglobin Concent 33.3 % 34.1 % Red Cell Distribution Width 14.7 % 14.1 % Platelet Count 251 TH/MM3 259 TH/MM3 Mean Platelet Volume 7.9 FL 7.7 FL Neutrophils (%) (Auto) 59.3 % 56.8 % Lymphocytes (%) (Auto) 25.6 % 27.8 % Monocytes (%) (Auto) 11.7 % 12.1 % Eosinophils (%) (Auto) 3.1 % 2.8 % Basophils (%) (Auto) 0.3 % 0.5 % Neutrophils # (Auto) 4.9 TH/MM3 4.4 TH/MM3 Lymphocytes # (Auto) 2.1 TH/MM3 2.2 TH/MM3 Monocytes # (Auto) 1.0 TH/MM3 0.9 TH/MM3 Eosinophils # (Auto) 0.3 TH/MM3 0.2 TH/MM3 Basophils # (Auto) 0.0 TH/MM3 0.0 TH/MM3 CBC Comment DIFF FINAL DIFF FINAL Differential Comment Blood Urea Nitrogen 9 MG/DL Creatinine 0.69 MG/DL Random Glucose 92 MG/DL Calcium Level 8.9 MG/DL Sodium Level 139 MEQ/L Potassium Level 3.2 MEQ/L Chloride Level 107 MEQ/L Carbon Dioxide Level 21.7 MEQ/L Anion Gap 10 MEQ/L Estimat Glomerular Filtration Rate 97 ML/MIN Imaging Last Impressions Carotid Artery Ultrasound 10/21/16 0000 Signed Impressions: Service Date/Time: Friday, October 21, 2016 12:02 - CONCLUSION: 1. No significant flow-limiting stenosis on the right. 2. Mild, less than 50%%, stenosis of the left internal carotid origin. 3. Antegrade vertebral artery flow bilaterally. Greg Lam MD CT Angiography 10/19/16 0037 Signed Impressions: Service Date/Time: Wednesday, October 19, 2016 01:13 - CONCLUSION: 1. Negative for pulmonary embolus. 2. Patchy perihilar airspace disease most characteristic of mild bronchopneumonia. 3. Mild to moderate centrilobular emphysema. 4. Improvement of previous peripheral lung consolidation right lower lobe with residual linear atelectasis, scarring and pleural thickening. Bryon Wolfe MD Head CT 10/18/162149 Signed Impressions: Service Date/Time: Tuesday, October 18, 2016 22:13 - CONCLUSION: No evidence of acute infarct, hemorrhage, mass or edema. Moderate atrophy Amilcar Limon MD Chest X-Ray 10/18/162149 Signed Impressions: Service Date/Time: Tuesday, October 18, 2016 22:25 - CONCLUSION: No acute disease. No significant change has occurred. Amilcar Limon MD Cervical Spine CT 10/18/162149 Signed Impressions: Service Date/Time: Tuesday, October 18, 2016 22:13 - CONCLUSION: 1. Advanced degenerative disc disease. 2. No evidence of acute fracture or subluxation. Amilcar Limon MD Objective Remarks GENERAL: Awake alert and oriented talkative and cooperative appears quite frail SKIN: Warm and dry. Intact no obvious rashes HEAD: Atraumatic. Normocephalic. EYES: Pupils equal and round. No scleral icterus. No injection or drainage. Extraocular muscles intact ENT: No nasal bleeding or discharge. Mucous membranes pink and moist. Tongue is midline NECK: Trachea midline. No JVD. Neck is supple CARDIOVASCULAR: Regular rate and rhythm. S1 and S2 no S3 or S4 no heave or thrill or rub or gallop needs pacemaker RESPIRATORY: No accessory muscle use. Clear to auscultation. Breath sounds equal bilaterally. GASTROINTESTINAL: Abdomen soft, non-tender, nondistended. Hepatic and splenic margins not palpable. MUSCULOSKELETAL: Extremities without clubbing, cyanosis, or edema. No obvious deformities. NEUROLOGICAL: Awake and alert. No obvious cranial nerve deficits. Motor grossly within normal limits. 4 out of 5 muscle strength in the arms and legs. Normal speech. PSYCHIATRIC: Appropriate mood and affect; insight and judgment normal. Urinary Catheter: No Vascular Central Line Catheter: No A/P Problem List: (1) Acute bronchopneumonia ICD Code: J18.0 - Bronchopneumonia, unspecified organism (2) Nausea & vomiting ICD Code: R11.2 - Nausea with vomiting, unspecified (3) Diarrhea ICD Code: R19.7 - Diarrhea Status: Resolved (4) Atypical chest pain ICD Code: R07.89 - Other chest pain Assessment and Plan Acute bronchopneumonia/diarrhea/fever - CT pulmonary angiogram negative for pulmonary embolus but shows patchy perihilar airspace disease most characteristic mild bronchopneumonia; mild to moderate centrilobular emphysema - antibiotics:s/p Zosyn. now on flagyl due to C. Diff. ID following. - initial blood cultures neg to date. - continue Duo nebulizers q6h scheduled and every 4 hours as needed for wheezing - Supplemental oxygen via nasal cannula titrated to maintain oxygen saturation greater than 92% - encourage use of IS q1hr while awake syncope: cardiology following, concerns for sick sinus syndrome, intermittent episodes of asystole, as documented on her loop recorder. carotid u/s no stenosis on the right and <50% on the left. ECHO w EF 45-50%. Review report. Pt schedule tentatively for permanent pacemaker wednesday in pm, however pt wishes to speak w her sales support technician but doesn't know who it is but son does. She will ask him and notify RN who it is. To be discussed w pt's sales support technician on wednesday as pt wishes to have his opinion. Hopefully her C.diff improves by then in the event she choses to proceed w the procedure in the PM. Nausea/vomiting/diarrhea/abdominal pain/weight loss - c. difficile toxin pos. on flagyl - Stool enteric pathogens neg other stool studies still pending. GI following. Chest pain - Resolved, cardiac enzymes neg x 3 - cards following. Hypokalemia Will replace Check a.m. labs DVT prophylaxis - Lovenox 40 mg subq q24h Discharge Planning continue po flagyl tentative permanent pacemaker on wednesday however pt would like to speak w her own sales support technician wednesday morning to decide if she would like to proceed w pacemaker. Bert Campoverde DO Oct 25, 2016 11:08
[2016-10-25] MEDS ORDERED: POTASSIUM CHLORIDE 20 MEQ CONTROLLED RELEASE TAB PO ONE ×2 (11:15→13:15)
[2016-10-25] MEDS: MAGNESIUM SULFATE 1 GM PREMIX 100 ML IV SCH ×2 (12:32→14:02)
[2016-10-25] MEDS: CHLORHEXIDINE GLUCONATE 2 % 1 PACK (2 CLOTHS) TOPICAL ONE (20:00)
[2016-10-25] MEDS: POVIDONE IODINE 5% (ANTISEPSIS KIT) 4 APPLICATIONS TOPICAL ONE (20:00)
[2016-10-25] MEDS: MUPIROCIN 2% OINT 1 APPLIC/GM SYR EACH NARE ONE (20:00)
[2016-10-26] VITALS (20 sets, daily range): BP systolic 127–150; BP diastolic 72–102; PULSE 68–89; RESP 14–18; TEMP 98.1–99.6; O2SAT 96–100
[2016-10-26] MEDS ORDERED: SODIUM CHLOR 0.9% 1000 ML INJ 1,000 ML IV SCH (05:00)
[2016-10-26] MEDS: POVIDONE IODINE 5% (ANTISEPSIS KIT) 4 APPLICATIONS TOPICAL ONE (05:02)
[2016-10-26] MEDS: CHLORHEXIDINE GLUCONATE 2 % 1 PACK (2 CLOTHS) TOPICAL ONE (05:03)
[2016-10-26] MEDS: metroNIDAZOLE 500 MG TAB PO SCH ×3 (05:14→22:32)
[2016-10-26 06:50] LABS: AUTOMATED NEUTROPHIL # 4.9 TH/MM3 (1.8-7.7); BASOPHIL % 0.5 % (0.0-2.0); EOSINOPHIL # 0.2 TH/MM3 (0-0.4); EOSINOPHIL % 2.5 % (0.0-4.0); HEMATOCRIT 30.3 % (35.0-46.0); LYMPH % 31.3 % (9.0-44.0); LYMPHOCYTE # 2.8 TH/MM3 (1.0-4.8); MEAN CELL VOLUME 92.7 FL (80.0-100.0); MEAN CORPUSCULAR HEMOGLOBIN 31.4 PG (27.0-34.0); MEAN CORPUSCULAR HGB CONC 33.8 % (32.0-36.0); MONO % 10.9 % (0.0-8.0); NEUT % 54.8 % (16.0-70.0); PLATELET COUNT 320 TH/MM3 (150-450); RED BLOOD COUNT 3.27 MIL/MM3 (4.00-5.30); RED CELL DISTRIBUTION WIDTH 14.3 % (11.6-17.2); WHITE BLOOD COUNT 8.9 TH/MM3 (4.0-11.0)
[2016-10-26 06:54] LABS: HEMO FLAGS AUTO DIFF
[2016-10-26 07:15] LABS: ANION GAP 9 MEQ/L (5-15); AST (GOT) 12 U/L (15-37); BICARBONATE 21.4 MEQ/L (21.0-32.0); BLOOD UREA NITROGEN 10 MG/DL (7-18); CHLORIDE 108 MEQ/L (98-107); GLOMERULAR FILTRATION RATE 97 ML/MIN (>89); MAGNESIUM 2.1 MG/DL (1.5-2.5); POTASSIUM 3.8 MEQ/L (3.5-5.1); SODIUM (NA) 138 MEQ/L (136-145)
[2016-10-26 07:16] LABS: ALT (GPT) 10 U/L (10-53)
[2016-10-26 07:24] LABS: ALKALINE PHOSPHATASE 56 U/L (45-117); FREE T4 1.06 NG/DL (0.76-1.46); TOTAL BILIRUBIN ADULT 0.2 MG/DL (0.2-1.0)
[2016-10-26 07:55] LABS: BANDS 9 % (0-6); EOSINOPHILS 1 % (0-4); METAMYELOCYTES 1 % (0-1); NEUTROPHIL # MANUAL DIFF 4.3 TH/MM3 (1.8-7.7); POLYS (SEG NEUTROPHILS) 38 % (16-70); WBC DIFF SAMPLE 100
[2016-10-26 07:56] LABS: SCAN/DIFF FINAL DIFF MANUAL
[2016-10-26] MEDS: SODIUM CHLOR 0.9% 1000 ML INJ 1,000 ML IV SCH ×4 (08:00→21:50)
--- NOTE | 2016-10-26 08:34 | PD.CARD.PN ---
Subjective Subjective Remarks Denies dizziness, palpitations, CP, dyspnea. Objective Medications Item Value Date Time Aspirin 162 mg 10/19/16 0900 (Aspirin Chew) DAILY/CHEW 10/25/16 0936 Vital Signs / I&O Vital Signs Date Time Temp Pulse Resp B/P (MAP) Pulse Ox O2 Delivery O2 Flow Rate FiO2 10/26/16 06:00 70 10/26/16 05:00 68 10/26/16 04:00 68 10/26/16 03:00 76 10/26/16 03:00 98.1 68 150/102 (118) 97 10/26/16 02:00 76 10/26/16 01:00 76 10/26/16 00:00 76 10/25/16 23:00 98.3 76 161/77 (105) 99 10/25/16 23:00 74 10/25/16 22:00 84 10/25/16 21:00 76 10/25/16 20:00 76 10/25/16 19:00 80 10/25/16 19:00 98.3 80 158/77 (104) 100 10/25/16 18:00 81 10/25/16 17:00 68 10/25/16 16:00 76 10/25/16 15:00 70 10/25/16 15:00 98.0 71 16 148/73 (98) 99 10/25/16 14:00 67 10/25/16 13:00 70 10/25/16 12:00 74 10/25/16 11:25 97.8 77 16 114/57 (76) 100 10/25/16 11:00 79 10/25/16 10:00 72 10/25/16 09:00 74 I/O 10/25/16 10/25/16 10/25/16 10/26/16 10/26/16 10/26/16 07:00 15:00 23:00 07:00 15:00 23:00 Intake Total 480 ml 820 ml 240 ml Balance 480 ml 820 ml 240 ml Intake Oral 480 ml 820 ml 240 ml IV Total 0 ml # Voids 3 3 2 # Bowel Movements 1 Physical Exam GENERAL: Well developed, well nourished. No acute distress. HEENT: Jugular venous pressure is normal. CHEST: Lungs clear to auscultation bilaterally. Unlabored respiratory effort. CARDIAC: Regular rate and rhythm without S3, S4, or murmur. ABDOMEN: Soft, nontender, no hepatosplenomegaly. Bowel sounds present. EXTREMITIES: No clubbing, cyanosis, or edema. Laboratory Laboratory Tests Test 10/26/16 04:51 White Blood Count 8.9 TH/MM3 Red Blood Count 3.27 MIL/MM3 Hemoglobin 10.3 GM/DL Hematocrit 30.3 % Mean Corpuscular Volume 92.7 FL Mean Corpuscular Hemoglobin 31.4 PG Mean Corpuscular Hemoglobin Concent 33.8 % Red Cell Distribution Width 14.3 % Platelet Count 320 TH/MM3 Mean Platelet Volume 7.8 FL Neutrophils (%) (Auto) 54.8 % Lymphocytes (%) (Auto) 31.3 % Monocytes (%) (Auto) 10.9 % Eosinophils (%) (Auto) 2.5 % Basophils (%) (Auto) 0.5 % Neutrophils # (Auto) 4.9 TH/MM3 Lymphocytes # (Auto) 2.8 TH/MM3 Monocytes # (Auto) 1.0 TH/MM3 Eosinophils # (Auto) 0.2 TH/MM3 Basophils # (Auto) 0.0 TH/MM3 CBC Comment AUTO DIFF Differential Total Cells Counted 100 Neutrophils % (Manual) 38 % Band Neutrophils % 9 % Lymphocytes % 46 % Monocytes % 5 % Eosinophils % 1 % Neutrophils # (Manual) 4.3 TH/MM3 Metamyelocytes 1 % Differential Comment FINAL DIFF MANUAL Atypical Lymphocytes % Blood Urea Nitrogen 10 MG/DL Creatinine 0.69 MG/DL Random Glucose 85 MG/DL Total Protein 7.0 GM/DL Albumin 2.7 GM/DL Calcium Level 9.1 MG/DL Phosphorus Level 1.9 MG/DL Magnesium Level 2.1 MG/DL Alkaline Phosphatase 56 U/L Aspartate Amino Transf (AST/SGOT) 12 U/L Alanine Aminotransferase (ALT/SGPT) 10 U/L Total Bilirubin 0.2 MG/DL Sodium Level 138 MEQ/L Potassium Level 3.8 MEQ/L Chloride Level 108 MEQ/L Carbon Dioxide Level 21.4 MEQ/L Anion Gap 9 MEQ/L Estimat Glomerular Filtration Rate 97 ML/MIN Free Thyroxine 1.06 NG/DL Thyroid Stimulating Hormone 3rd Gen 4.200 uIU/ML Assessment and Plan Problem List: (1) Syncope ICD Codes: R55 - Syncope and collapse Status: Acute Plan: Stable over the weekend. Suspect her multiple episodes of syncope since 2014 due to sick sinus syndrome, intermittent episodes of asystole, as documented on her loop recorder. REC permanent pacemaker implant today; discussed with patient and she is agreeable to proceed (2) Paroxysmal supraventricular tachycardia ICD Codes: I47.1 - Supraventricular tachycardia Status: Chronic Plan: No recent SVT. Will consider starting Cardizem or metoprolol after pacemaker implanted. (3) HTN (hypertension) ICD Codes: I10 - Essential (primary) hypertension Status: Chronic Plan: Mostly hypertensive. Will likely start Cardizem as for her history of paroxysmal SVT after pacer implanted. (4) Bilateral pulmonary embolism ICD Codes: I26.99 - Other pulmonary embolism without acute cor pulmonale Status: Chronic Problem Qualifiers (1) Syncope: Qualified Codes: R55 - Syncope and collapse (2) HTN (hypertension): Qualified Codes: I10 - Essential (primary) hypertension Chris Johnson MD Oct 26, 2016 08:34
[2016-10-26] MEDS: SODIUM CHLORIDE 0.9% FLUSH 10 ML FLUSH IV FLUSH SCH ×2 (09:18→19:48)
[2016-10-26] MEDS: ASPIRIN 81 MG CHEW TAB CHEW SCH (09:20)
--- NOTE | 2016-10-26 10:41 | HHI.PR ---
Subjective Remarks States she has not had any stooling today. Hopefully to have pacemaker placed tomorrow October 26 Discussed with patient and RN Hep-Lock IV Replace potassium A.m. labs 10-26 FOR PERMANENT PACEMAKER LATER TODAY DW PATIENT AND RN MAY NEED REHAB DEPENDING ON MOBILITY AFTER PACEMAKER PT AND OT WILL NEED TO ASSESS TOMORROW AFTER PROCEDURE Objective Vitals Vital Signs Date Time Temp Pulse Resp B/P (MAP) Pulse Ox O2 Delivery O2 Flow Rate FiO2 10/26/16 10:00 70 10/26/16 09:00 89 10/26/16 08:00 73 10/26/16 07:00 98.5 81 18 127/73 (91) 98 10/26/16 06:00 70 10/26/16 05:00 68 10/26/16 04:00 68 10/26/16 03:00 76 10/26/16 03:00 98.1 68 150/102 (118) 97 10/26/16 02:00 76 10/26/16 01:00 76 10/26/16 00:00 76 10/25/16 23:00 98.3 76 161/77 (105) 99 10/25/16 23:00 74 10/25/16 22:00 84 10/25/16 21:00 76 10/25/16 20:00 76 10/25/16 19:00 80 10/25/16 19:00 98.3 80 158/77 (104) 100 10/25/16 18:00 81 10/25/16 17:00 68 10/25/16 16:00 76 10/25/16 15:00 70 10/25/16 15:00 98.0 71 16 148/73 (98) 99 10/25/16 14:00 67 10/25/16 13:00 70 10/25/16 12:00 74 10/25/16 11:25 97.8 77 16 114/57 (76) 100 10/25/16 11:00 79 I/O 10/25/16 10/25/16 10/25/16 10/26/16 10/26/16 10/26/16 07:00 15:00 23:00 07:00 15:00 23:00 Intake Total 480 ml 820 ml 240 ml Balance 480 ml 820 ml 240 ml Intake Oral 480 ml 820 ml 240 ml IV Total 0 ml # Voids 3 3 2 # Bowel Movements 1 Result Diagram: 10/26/16 0451 10/26/16 0451 Other Results Laboratory Tests Test 10/24/16 06:33 10/25/16 06:26 10/26/16 04:51 White Blood Count 8.3 TH/MM3 7.8 TH/MM3 8.9 TH/MM3 Red Blood Count 3.26 MIL/MM3 3.26 MIL/MM3 3.27 MIL/MM3 Hemoglobin 10.1 GM/DL 10.3 GM/DL 10.3 GM/DL Hematocrit 30.4 % 30.3 % 30.3 % Mean Corpuscular Volume 93.1 FL 92.9 FL 92.7 FL Mean Corpuscular Hemoglobin 31.0 PG 31.7 PG 31.4 PG Mean Corpuscular Hemoglobin Concent 33.3 % 34.1 % 33.8 % Red Cell Distribution Width 14.7 % 14.1 % 14.3 % Platelet Count 251 TH/MM3 259 TH/MM3 320 TH/MM3 Mean Platelet Volume 7.9 FL 7.7 FL 7.8 FL Neutrophils (%) (Auto) 59.3 % 56.8 % 54.8 % Lymphocytes (%) (Auto) 25.6 % 27.8 % 31.3 % Monocytes (%) (Auto) 11.7 % 12.1 % 10.9 % Eosinophils (%) (Auto) 3.1 % 2.8 % 2.5 % Basophils (%) (Auto) 0.3 % 0.5 % 0.5 % Neutrophils # (Auto) 4.9 TH/MM3 4.4 TH/MM3 4.9 TH/MM3 Lymphocytes # (Auto) 2.1 TH/MM3 2.2 TH/MM3 2.8 TH/MM3 Monocytes # (Auto) 1.0 TH/MM3 0.9 TH/MM3 1.0 TH/MM3 Eosinophils # (Auto) 0.3 TH/MM3 0.2 TH/MM3 0.2 TH/MM3 Basophils # (Auto) 0.0 TH/MM3 0.0 TH/MM3 0.0 TH/MM3 CBC Comment DIFF FINAL DIFF FINAL AUTO DIFF Differential Comment FINAL DIFF MANUAL Blood Urea Nitrogen 9 MG/DL 10 MG/DL Creatinine 0.69 MG/DL 0.69 MG/DL Random Glucose 92 MG/DL 85 MG/DL Calcium Level 8.9 MG/DL 9.1 MG/DL Sodium Level 139 MEQ/L 138 MEQ/L Potassium Level 3.2 MEQ/L 3.8 MEQ/L Chloride Level 107 MEQ/L 108 MEQ/L Carbon Dioxide Level 21.7 MEQ/L 21.4 MEQ/L Anion Gap 10 MEQ/L 9 MEQ/L Estimat Glomerular Filtration Rate 97 ML/MIN 97 ML/MIN Differential Total Cells Counted 100 Neutrophils % (Manual) 38 % Band Neutrophils % 9 % Lymphocytes % 46 % Monocytes % 5 % Eosinophils % 1 % Neutrophils # (Manual) 4.3 TH/MM3 Metamyelocytes 1 % Atypical Lymphocytes % Total Protein 7.0 GM/DL Albumin 2.7 GM/DL Phosphorus Level 1.9 MG/DL Magnesium Level 2.1 MG/DL Alkaline Phosphatase 56 U/L Aspartate Amino Transf (AST/SGOT) 12 U/L Alanine Aminotransferase (ALT/SGPT) 10 U/L Total Bilirubin 0.2 MG/DL Free Thyroxine 1.06 NG/DL Thyroid Stimulating Hormone 3rd Gen 4.200 uIU/ML Imaging Last Impressions Carotid Artery Ultrasound 10/21/16 0000 Signed Impressions: Service Date/Time: Friday, October 21, 2016 12:02 - CONCLUSION: 1. No significant flow-limiting stenosis on the right. 2. Mild, less than 50%%, stenosis of the left internal carotid origin. 3. Antegrade vertebral artery flow bilaterally. Greg Lam MD CT Angiography 10/19/167 Signed Impressions: Service Date/Time: Wednesday, October 19, 2016 01:13 - CONCLUSION: 1. Negative for pulmonary embolus. 2. Patchy perihilar airspace disease most characteristic of mild bronchopneumonia. 3. Mild to moderate centrilobular emphysema. 4. Improvement of previous peripheral lung consolidation right lower lobe with residual linear atelectasis, scarring and pleural thickening. Bryon Wolfe MD Head CT 10/18/162149 Signed Impressions: Service Date/Time: Tuesday, October 18, 2016 22:13 - CONCLUSION: No evidence of acute infarct, hemorrhage, mass or edema. Moderate atrophy Amilcar Limon MD Chest X-Ray 10/18/162149 Signed Impressions: Service Date/Time: Tuesday, October 18, 2016 22:25 - CONCLUSION: No acute disease. No significant change has occurred. Amilcar Limon MD Cervical Spine CT 10/18/162149 Signed Impressions: Service Date/Time: Tuesday, October 18, 2016 22:13 - CONCLUSION: 1. Advanced degenerative disc disease. 2. No evidence of acute fracture or subluxation. Amilcar Limon MD Objective Remarks GENERAL: Awake alert and oriented talkative and cooperative appears quite frail SKIN: Warm and dry. Intact no obvious rashes HEAD: Atraumatic. Normocephalic. EYES: Pupils equal and round. No scleral icterus. No injection or drainage. Extraocular muscles intact ENT: No nasal bleeding or discharge. Mucous membranes pink and moist. Tongue is midline NECK: Trachea midline. No JVD. Neck is supple CARDIOVASCULAR: Regular rate and rhythm. S1 and S2 no S3 or S4 no heave or thrill or rub or gallop needs pacemaker RESPIRATORY: No accessory muscle use. Clear to auscultation. Breath sounds equal bilaterally. GASTROINTESTINAL: Abdomen soft, non-tender, nondistended. Hepatic and splenic margins not palpable. MUSCULOSKELETAL: Extremities without clubbing, cyanosis, or edema. No obvious deformities. NEUROLOGICAL: Awake and alert. No obvious cranial nerve deficits. Motor grossly within normal limits. 4 out of 5 muscle strength in the arms and legs. Normal speech. PSYCHIATRIC: Appropriate mood and affect; insight and judgment normal. Medications and IVs Current Medications Potassium Bicarb/ Potassium Chloride (K-Lyte Cl Eff) 50 meq ONCE ONCE PO ; Start 10/18/16 at 23:15; Stop 10/18/16 at 23:16; Status DC Sodium Chloride 500 ml @ 500 mls/hr BOLUS ONCE IV Last administered on 23:49; Start 10/18/16 at 23:45; Stop 10/19/16 at 00:44; Status DC Ondansetron HCl (Zofran Inj) 4 mg ONCE ONCE IV PUSH Last administered on 23:49; Start 10/18/16 at 23:45; Stop 10/18/16 at 23:46; Status DC Sodium Chloride (NS Flush) 2 ml UNSCH PRN IV FLUSH FLUSH AFTER USING IV ACCESS ; Start 10/19/16 at 01:00 Sodium Chloride (NS Flush) 2 ml BID IV FLUSH Last administered on 10/26/16 09: 18; Start 10/19/16 at 09:00 Naloxone HCl (Narcan Inj) 0.4 mg UNSCH PRN IV SEE LABEL COMMENTS; Start at 01:00 Iohexol (Omnipaque 350 Inj) 75 ml STK-MED ONCE IVCONTRAST ; Start 10/19/16 at 01 :15; Stop 10/19/16 at 01:16; Status DC Nitroglycerin (Nitrostat Sl) 0.4 mg ONCE ONCE SL Last administered on 01:25; Start 10/19/16 at 01:30; Stop 10/19/16 at 01:31; Status DC Nitroglycerin (Nitroglycerin 2% Oint) 1 inch ONCE ONCE TOPICAL Last administered on 10/19/16 02:05; Start 10/19/16 at 01:30; Stop 10/19/16 at 01:31 ; Status DC Aspirin (Aspirin Chew) 162 mg DAILY CHEW Last administered on 10/26/16 09:20; Start 10/19/16 at 09:00 Famotidine 20 mg/ Sodium Chloride 100 ml @ 4 mls/hr STAT STAT IV Last administered on 10/19/16 01:25; Start 10/19/16 at 01:23; Stop 10/20/16 at 02:22 ; Status DC Piperacillin Sod/ Tazobactam Sod 100 ml @ 200 mls/hr Q6H IV Last administered on 10/19/16 08:43; Start 10/19/16 at 02:00; Stop 10/19/16 at 15:07; Status DC Enoxaparin Sodium (Lovenox Inj) 40 mg Q24H SQ Last administered on 10/21/16 05 :06; Start 10/19/16 at 06:00; Stop 10/21/16 at 23:00; Status DC Albuterol/ Ipratropium (Duoneb Neb) 1 ampule Q2HR NEB PRN NEB wheezing; Start 10/19/16 at 03:45 Albuterol/ Ipratropium (Duoneb Neb) 1 ampule Q6HR NEB NEB Last administered on 10/22/16 20:36; Start 10/19/16 at 04:00; Stop 10/23/16 at 03:59; Status DC Piperacillin Sod/ Tazobactam Sod 50 ml @ 200 mls/hr Q6H IV Last administered on 10/22/16 16:00; Start 10/19/16 at 16:00; Stop 10/22/16 at 18:48; Status DC Potassium Chloride (KCl) 40 meq ONCE ONCE PO Last administered on 10/20/16 15 :52; Start 10/20/16 at 15:45; Stop 10/20/16 at 15:46; Status DC Potassium Chloride 100 ml @ 50 mls/hr BOLUS ONCE IV Last administered on 10/20 15:53; Start 10/20/16 at 16:00; Stop 10/20/16 at 17:59; Status DC Metronidazole (Flagyl) 500 mg Q8HR PO Last administered on 10/26/16 05:14; Start 10/21/16 at 14:00 Sodium Chloride 1,000 ml @ 125 mls/hr Q8H IV Last administered on 10/22/16 08 :00; Start 10/22/16 at 08:00 Cefazolin Sodium 1000 mg/Sodium Chloride 250 ml @ 0 mls/hr ONCE ONCE IV ; Start 10/22/16 at 14:00; Stop 10/22/16 at 14:01; Status DC Vancomycin HCl 1000 mg/Sodium Chloride 250 ml @ 0 mls/hr SPLITTER HAND IV ; Start at 14:00 Povidone Iodine (Betadine 5% Antisepsis Kit) 1 applic ONCE TOPICAL ; Start 10/21 at 14:30; Stop 10/21/16 at 23:59; Status DC Mupirocin (Bactroban Nasal 2% Oint) 1 applic ONCE EACH NARE ; Start 10/21/16 at 14:30; Stop 10/21/16 at 23:59; Status DC Chlorhexidine Gluconate (Chlorhexidine 2% Cloth) 1 pack ONCE TOPICAL ; Start at 14:30; Stop 10/21/16 at 23:59; Status DC Sodium Chloride 1,000 ml @ 125 mls/hr Q8H IV ; Start 10/26/16 at 05:00; Stop at 05:00; Status DC Cefazolin Sodium 1000 mg/Sodium Chloride 250 ml @ 0 mls/hr ONCE ONCE IV ; Start 10/26/16 at 12:30; Stop 10/26/16 at 12:31 Vancomycin HCl 1000 mg/Sodium Chloride 250 ml @ 0 mls/hr ONCE ONCE IV ; Start 10/26/16 at 12:30; Stop 10/26/16 at 12:31 Povidone Iodine (Betadine 5% Antisepsis Kit) 1 applic ONCE ONCE TOPICAL Last administered on 10/26/16 05:02; Start 10/25/16 at 20:00; Stop 10/25/16 at 20:01 ; Status DC Mupirocin (Bactroban Nasal 2% Oint) 1 applic ONCE ONCE EACH NARE Last administered on 10/25/16 20:00; Start 10/25/16 at 20:00; Stop 10/25/16 at 20:01 ; Status DC Chlorhexidine Gluconate (Chlorhexidine 2% Cloth) 1 pack ONCE ONCE TOPICAL Last administered on 10/26/16 05:03; Start 10/25/16 at 20:00; Stop 10/25/16 at 20:01; Status DC Potassium Chloride (KCl) 40 meq ONCE ONCE PO Last administered on 10/25/16 12 :33; Start 10/25/16 at 11:15; Stop 10/25/16 at 11:24; Status DC Potassium Chloride (KCl) 40 meq ONCE ONCE PO Last administered on 10/25/16 14 :02; Start 10/25/16 at 13:15; Stop 10/25/16 at 13:16; Status DC Magnesium Sulfate/ Dextrose 100 ml @ 100 mls/hr Q1H IV Last administered on 14:02; Start 10/25/16 at 11:15; Stop 10/25/16 at 13:14; Status DC A/P Problem List: (1) Acute bronchopneumonia ICD Code: J18.0 - Bronchopneumonia, unspecified organism (2) Nausea & vomiting ICD Code: R11.2 - Nausea with vomiting, unspecified (3) Diarrhea ICD Code: R19.7 - Diarrhea Status: Resolved (4) Atypical chest pain ICD Code: R07.89 - Other chest pain Assessment and Plan Acute bronchopneumonia/diarrhea/fever - CT pulmonary angiogram negative for pulmonary embolus but shows patchy perihilar airspace disease most characteristic mild bronchopneumonia; mild to moderate centrilobular emphysema - antibiotics:s/p Zosyn. now on flagyl due to C. Diff. ID following. - initial blood cultures neg to date. - continue Duo nebulizers q6h scheduled and every 4 hours as needed for wheezing - Supplemental oxygen via nasal cannula titrated to maintain oxygen saturation greater than 92% - encourage use of IS q1hr while awake syncope: cardiology following, concerns for sick sinus syndrome, intermittent episodes of asystole, as documented on her loop recorder. carotid u/s no stenosis on the right and <50% on the left. ECHO w EF 45-50%. Review report. Pt schedule tentatively for permanent pacemaker wednesday in pm, however pt wishes to speak w her steam finisher but doesn't know who it is but son does. She will ask him and notify RN who it is. To be discussed w pt's steam finisher on wednesday as pt wishes to have his opinion. Hopefully her C.diff improves by then in the event she choses to proceed w the procedure in the PM. TO HAVE PACER PLACED 10-26 Nausea/vomiting/diarrhea/abdominal pain/weight loss - c. difficile toxin pos. on flagyl - Stool enteric pathogens neg other stool studies still pending. GI following. Chest pain - Resolved, cardiac enzymes neg x 3 - cards following. Hypokalemia Will replace Check a.m. labs DVT prophylaxis - Lovenox 40 mg subq q24h Discharge Planning continue po flagyl tentative permanent pacemaker on wednesday however pt would like to speak w her own steam finisher wednesday morning to decide if she would like to proceed w pacemaker. FOR PACEMAKER LATER TODAY 10-26 [facility] HYPOTHYROIDISM- HOLD OFF ON REPLACEMENT AM LABS PT AND OT TOMORROW Bert Campoverde DO Oct 26, 2016 10:41
[2016-10-26] MEDS ORDERED: ceFAZolin INJ 1,000 MG in SODIUM CHLORIDE 0.9% INJ 250 ML IV ONE (12:30)
[2016-10-26] MEDS ORDERED: VANCOMYCIN INJ 1,000 MG in SODIUM CHLOR 0.9% 250 ML INJ 250 ML IV ONE (12:30)
[2016-10-26] MEDS ORDERED: VANCOMYCIN HCL 1000 MG VIAL ONE (14:09)
[2016-10-26] MEDS ORDERED: SODIUM CHLOR 0.9% 250 ML INJ 250 ML ONE (14:09)
[2016-10-26] MEDS ORDERED: LIDOCAINE HCL 2% 50 ML VIAL ONE (14:15)
--- NOTE | 2016-10-26 16:09 | CATHPROC ---
[employer] HIS Report Study Information Study Number Admission Scheduled Start Study Start [id number] Oct 19 2016 1:42PM 10/26/2016 Oct 26 2016 1:51PM [place] Service Cardiac Pacer/ICD Admit Source Facility Department Other [facility] - Business Solutions Director Physician and Clinical Staff Initial [facility] Dentistchavez Crespo RN, Erlin Other cathlab, cathlab Other Anesthesia, SKEIN BANDER Recorder [place] RCIS(BS) Zita Perez RCIS TECH2 Procedures Performed Procedure Location (Site) Vessel Name Lead Insertion Venogram Subclav. Vein (Lft Subclavian Vein Equipment Time Elementary Tutor Description Size Mfg Part Number Used/Scraped 15:19 BIOTRONIK LEAD, SOLIA 60 PRO MRI * [id number] Used 15:27 BIOTRONIK PACEMAKER, ELUNA 8 SR-T * [id number] Used [id number] 13:55 MEDLINE INDUSTRIES SUTURE, STRIP PLUS 1/2" * Used *[id number] 13:55 MEDLINE PACER ADHESIVE, MASTISOL 2/3CC 2/3CC 0523-48 Used 13:55 MEDLINE PACER RIVAS, LIMB * 2530 *[id number] Used [id number] 13:55 MEDLINE PACER PACK, PACER CUSTOM * Used *[id number] 13:55 MEDLINE PACER PEN, SKIN DUAL W/ RULER * Used *[id number] 15:14 [facility] Job App Plus PACER SAFE SHEATH, FR6, 13CM FR 6 [id number] Used 14:08 Needle Sponge Count 2 22 Used 14:08 Needle Sponge Count 25 1 Used 14:07 Needle Sponge Count 3 3 Used 15:05 NYCOMED OMNIPAQUE, 350 MG, 50ML 50ML [id number] Used [id number] SUTURE, 3-0 VICRYL [SH] ([id number]) SUTURE, 3-0 VICRYL [SH] ([id number]) SUTURE, 4-0 MONOCRYL [PS2] (Y496G) [id number] 13:55 [employer],WARM AIR CCL * Used *[id number] [facility] PAD, ELECTROSURGICAL 13:55 * [id number] *[id number] Used SURGICAL GROUNDING ORANGE [id number] 13:55 [employer] EMILY. ELECTRODE, PRO-PADZ BIPHASIC * Used *[id number] Equipment Model, Serial, Lot Number and Expiration Data Description Model Number Serial Number Lot Number Expiration Date LEAD, SOLIA 60 PRO MRI [id number] 12-08-[address] PAC[address], [address] SR-T [id number] 07-08-2017 History: Allergies Allergy Reaction lisinopril ANGIOEDEMA codeine STATES SWELLING hydrocodone SWELLING History: Risk Factors Hypertension Dyslipidemia Yes Yes Diabetes Labs Hgb (g/dl) Hct (%) WBC (l/cumm) Platelets (thousands) 11.60-17.00 35.00-51.00 4.00-11.00 150.00-450.00 10.3 30.3 8.9 320 Glucose (mg/dl) BUN (mg/dl) Creatinine (mg/dl) BUN:Creatinine (1:x) 74.00-106.00 7.00-18.00 0.50-1.30 10.00-20.00 85 10 0.6 16.7 Na (meq/l) K (meq/l) 136.00-145.00 3.50-5.10 138 3.8 INR (PTT:PT) 0.90-1.10 1.3 CPK-MB (ng/ML) 0.50-3.60 Not Drawn Medication Medication Total Dose (Bolus/Oral) Medication Total Dosage/Unit 2% XYLOCAINE 50 mL Medications (Bolus/Oral) Medication Time Given Dosage/Unit Administered By Reason 2% XYLOCAINE 10/26/2016 3:04:37 PM 50 mL Chris Johnson 50 mL 2% XYLOCAINE given in lab by Chris Johnson in Left shoulder via Subcutaneous. Medication (Drip) Medication Time Given Dosage/Unit Concentration/Unit Diluent (ml) Solution ANCEF 10/26/2016 2:30:00 PM 1 g 1 g ANCEF given in lab by Anesthesia, SKEIN BANDER in Right Forearm via Peripheral IV. Ordered by Marcos Johnson VANCOMYCIN DRIP 10/26/2016 2:30:02 PM 2 g 2 g VANCOMYCIN DRIP given in lab by Anesthesia, SKEIN BANDER in Left Antecubital via Peripheral IV. Ordered b Chris Chaudhry. Chronological Log Time Study Chronological Log 13:35:01 Patient arrived via Bed. See SKEIN BANDER flow sheet for vitals and medications given. 13:35:03 Patient Name, D.O.B, / Armband Verified By R.N. 13:35:05 Consent signed by the physician and the patient and verified by the Business Solutions Director staff. 13:52:26 Pre-op and post- op instructions given; patient acknowledges understanding of instructions . 13:52:30 Patient has been NPO for More than 6Hrs. 13:52:31 Skin Breakdown- none per patient 13:52:32 Patient Warmer Placed on the Table. 13:52:32 Disposable Defibrillator Pads Placed On Patient. 13:52:33 [place] Prominences Protected 13:52:35 A # 20 IV was noted in the Antecubital (left). Grade = 0 13:52:35 A # 22 IV was noted in the Wrist (right). Grade = 0 13:52:36 History and physical on the chart or being dictated. 13:52:42 Bovie ground pad applied to: RIGHT THIGH 13:52:53 Table restraints applied according to hospital policy 13:52:59 2% CHLORHEXIDINE GLUCONATE WASH AND NASAL SWIPE DONE PRIOR TO PROCEDURE. 14:01:14 Reference ECG taken First Sponge And Instrument Count Done by Erlin Crespo RN. 14:07:24 Hypo's: 3, Sponges: 25, Bovie/scratch: 2 Sutures: 6, Blades: 3, Instruments: 26, Syveck Patches: 0 14:17:08 Anesthesia at bedside. Assumes care of patient. 14:23:02 Left arm and shoulder prepped with 2% chlorhexidine, and with a 3 min. waiting time. 14:29:02 IV #20 started RIGHT FA by SKEIN BANDER 14:30:00 1 g ANCEF given in lab by Anesthesia, SKEIN BANDER in Right Forearm via Peripheral IV. Ordered by Chris Cassidy. 14:30:02 2 g VANCOMYCIN DRIP given in lab by Anesthesia, SKEIN BANDER in Left Antecubital via Peripheral IV. Ordered by Chris Johnson. 14:38:30 paged 14:42:54 MD responded 14:43:51 Patient intubated by anesthesia 14:52:00 MD arrived. 14:56:00 Left arm and shoulder prepped with 2% chlorhexidine, and with a 3 min. waiting time. Time Out. Correct patient, procedure, procedure equipment, site and side verified with physicia n present. Time 15:04:32 concurred by MD, individual staff and SKEIN BANDER. Time Out #2 - Consents verified, patient in correct position, all results are labled and displa yed, safety precautions 15:04:33 taken, antibiotics administered. Time out concurred by MD, individual staff and SKEIN BANDER in procedu re 15:04:34 Case Start 15:04:37 50 mL 2% XYLOCAINE given in lab by Chris Johnson in Left shoulder via Subcutaneous. 15:04:52 The Subclav. Vein (Lft was manually injected with 10 cc's of contrast. OMNIPAQUE, 350 MG, 5 0ML 50ML used. 15:13:25 Vascular access was obtained in the Subclav. Vein (Lft. 15:13:32 Surgical Incision Made. 15:13:33 A SAFE SHEATH, FR6, 13CM FR 6 was advanced into the Subclav. Vein (Lft using the Percutaneo us technique. 15:16:34 A implantable was inserted and positioned in the RV. 15:19:20 Lead placement verified under fluoroscopy 15:20:30 The RV lead impedance and threshold being tested. 15:22:35 The RV lead was sutured to the fascia. 15:25:11 A PACEMAKER, ELUNA 8 SR-T * was connected and placed in the pocket. Second Sponge And Instrument Count Done by Chris Johnson. 15:26:46 Hypo's: 3, Sponges: 25, Bovie/scratch: 2 Sutures: ~SUTURE~, Blades: 3, Instruments: ~INSTRU~, Syveck Patches: ~SYVECK PATCH~ 15:29:33 The pocket was closed. 15:38:53 Case End The Final Sponge And Instrument Count Done by Chris Johnson. 15:38:54 Hypo's: 3, Sponges: 25, Bovie/scratch: 2 Sutures: 6, Blades: 3, Instruments: 26, Syveck Patches: 0 15:39:12 No case complications noted. 15:39:13 Cine recording checked. 15:39:14 Bedside Report will be given. 15:39:15 Implantable Device card placed in patient's chart. 15:39:16 Contrast Scanned 15:39:25 Implant Procedure was performed. SC PM 15:39:31 A PPM Implant . (Single) SC 15:45:12 Sterile dressing applied to site 15:45:18 Steri-strips and a sterile dressing applied to site. 15:55:36 Patient extubated by SKEIN BANDER 16:08:41 Patient moved to stretcher 16:08:43 A sling was placed on the affected arm. End Study - Contrast Media Used In Study Contrast Total Opened (mL) Total Used (mL) Total Wasted (mL) Omnipaque 20 20 0 End Study - Maximum Contrast Load Max Contrast Load (mL) 441.7 End Study - Radiation Exposure Fluoro Time (minutes) 7.7 End Study - Patient Disposition Complications Transferred To Interventional Outcome No Critical Care Bed No attempt made
[2016-10-26] MEDS ORDERED: traMADol HCL 50 MG TAB PO PRN (16:15)
[2016-10-26] MEDS ORDERED: DILTIAZEM-CD 180 MG CAP ER PO SCH (16:15)
[2016-10-26] MEDS ORDERED: DO NOT ADM ANY ANTICOAGULANT DRUGS PRN (16:20)
[2016-10-26] MEDS ORDERED: ACETAMINOPHEN 325 MG TAB PO PRN (16:30)
--- NOTE | 2016-10-26 16:44 | RADRPT ---
EXAM DATE/TIME: 10/26/2016 16:17 [place] COMPARISON: CHEST SINGLE AP, October 18, 2016, 22:25. INDICATIONS : Pneumothorax. MEDICAL HISTORY : Hypertension. Cardiovascular disease. Diabetes mellitus type II. SURGICAL HISTORY : None. ENCOUNTER: Initial ACUITY: 1 week PAIN SCORE: 0/10 LOCATION: Bilateral chest FINDINGS: Pacemaker and event recorder is evident. Lungs are clear. Heart and vascularity are normal. CONCLUSION: No acute disease. Bert Hernandez MD FACR on October 26, 2016 at 16:42 Board Certified Radiologist. This report was verified electronically.
[2016-10-26 17:02] LABS: HEMOGLOBIN A1a 1.2 %; HEMOGLOBIN A1b 1.3 %; HEMOGLOBIN Ao 86.1 %; HEMOGLOBIN F 0.4 %; HEMOGLOBIN LA1C 1.9 %; HEMOGLOBIN P3 3.6 %
[2016-10-26] MEDS: DILTIAZEM-CD 180 MG CAP ER PO SCH (18:30)
[2016-10-26] MEDS ORDERED: hydrALAZINE HCL 20 MG/ML VIAL IV PUSH PRN (18:45)
[2016-10-26] MEDS ORDERED: LABETALOL HCL 100 MG/20 ML VIAL IV PUSH PRN (18:45)
[2016-10-26] MEDS ORDERED: PHENOL 1.4% SOLN 180 ML BTL OROPHARYNG PRN (18:45)
[2016-10-26] MEDS ORDERED: cloNIDine HCL 0.1 MG TAB PO PRN (18:45)
[2016-10-27] VITALS (13 sets, daily range): BP systolic 109–127; BP diastolic 67–75; PULSE 62–78; RESP 16–17; TEMP 98–98.6; O2SAT 94–97
[2016-10-27] MEDS: metroNIDAZOLE 500 MG TAB PO SCH (04:59)
[2016-10-27] MEDS ORDERED: VANCOMYCIN 1,000 MG/NS 250 ML IV ONE ×2 (05:00)
[2016-10-27] MEDS ORDERED: VANCOMYCIN INJ 1,000 MG in SODIUM CHLOR 0.9% 250 ML INJ 250 ML SCH (05:00)
--- NOTE | 2016-10-27 08:03 | PD.CARD.PN ---
Subjective Subjective Remarks Denies SOB, dizziness, CP. Mild incisional discomfort. Objective Medications Item Value Date Time Diltiazem HCl 180 mg 10/26/16 1800 (Cardizem Cd) DAILY/PO 10/26/16 1830 Aspirin 162 mg 10/19/16 0900 (Aspirin Chew) DAILY/CHEW 10/26/16 0920 Vital Signs / I&O Vital Signs Date Time Temp Pulse Resp B/P (MAP) Pulse Ox O2 Delivery O2 Flow Rate FiO2 10/27/16 06:23 62 10/27/16 05:00 62 10/27/16 04:19 71 10/27/16 04:19 69 10/27/16 03:00 78 10/27/16 03:00 98.6 70 17 127/67 (87) 97 10/27/16 02:00 70 10/27/16 01:00 70 10/27/16 00:00 76 10/26/16 23:00 78 10/26/16 23:00 99.6 77 17 131/72 (91) 96 10/26/16 21:36 76 10/26/16 20:00 75 10/26/16 19:00 72 10/26/16 19:00 98.2 73 16 141/75 (97) 98 10/26/16 18:25 74 10/26/16 17:45 Nasal Cannula 2.00 10/26/16 17:29 71 10/26/16 17:00 98.7 75 20 157/70 (99) 100 Nasal Cannula 2 10/26/16 16:45 75 14 157/70 (99) 100 10/26/16 16:30 85 12 182/83 (116) 95 Nasal Cannula 2 10/26/16 16:24 98.2 84 13 191/85 (120) 100 Nasal Cannula 2 10/26/16 13:14 71 10/26/16 12:30 70 10/26/16 11:00 98.7 70 14 138/74 (95) 100 10/26/16 11:00 70 10/26/16 10:00 70 10/26/16 09:00 89 10/26/16 08:00 73 I/O 10/26/16 10/26/16 10/26/16 10/27/16 10/27/16 10/27/16 07:00 15:00 23:00 07:00 15:00 23:00 Intake Total 240 ml 240 ml 620 ml Output Total 400 ml Balance 240 ml 240 ml 220 ml Intake Oral 240 ml 240 ml 240 ml IV Total 0 ml 380 ml Output Urine Total 400 ml # Voids 2 3 # Bowel Movements 1 1 0 Physical Exam GENERAL: Well developed, well nourished. No acute distress. HEENT: Jugular venous pressure is normal. CHEST: Lungs clear to auscultation anteriorly. Pacer site clean, dry, intact, no hematoma or tenderness. CARDIAC: Regular rate and rhythm without S3, S4, or murmur. ABDOMEN: Soft, nontender, no hepatosplenomegaly. Bowel sounds present. EXTREMITIES: No clubbing, cyanosis, or edema. Imaging Last 48 hours Impressions Chest X-Ray 10/26/16 1601 Signed Impressions: Service Date/Time: Wednesday, October 26, 2016 16:17 - CONCLUSION: No acute disease. Bert Hernandez MD FACR Assessment and Plan Problem List: (1) Status post placement of cardiac pacemaker ICD Codes: Z95.0 - Presence of cardiac pacemaker Status: Acute Plan: Stable overnight. Post op CXR OK, no pneumothorax. Pacing parameters this morning acceptable. OK to discharge today from cardiac standpoint. (2) Paroxysmal supraventricular tachycardia ICD Codes: I47.1 - Supraventricular tachycardia Status: Chronic Plan: No recent SVT. Cardizem CD 180 mg qd started yesterday. (3) HTN (hypertension) ICD Codes: I10 - Essential (primary) hypertension Status: Chronic Plan: Mostly normotensive. Now on Cardizem CD 180 mg qd. (4) Bilateral pulmonary embolism ICD Codes: I26.99 - Other pulmonary embolism without acute cor pulmonale Status: Chronic Plan: OK to resume anticoagulation therapy tomorrow. Code Status full code Discussed Condition With patient Problem Qualifiers (1) HTN (hypertension): Qualified Codes: I10 - Essential (primary) hypertension Chris Johnson MD Oct 27, 2016 08:03
[2016-10-27] MEDS: DILTIAZEM-CD 180 MG CAP ER PO SCH (09:51)
[2016-10-27] MEDS: ASPIRIN 81 MG CHEW TAB CHEW SCH (09:51)
[2016-10-27] MEDS: SODIUM CHLORIDE 0.9% FLUSH 10 ML FLUSH IV FLUSH SCH (09:51)
--- NOTE | 2016-10-27 10:21 | HHI.PR ---
Subjective Remarks States she has not had any stooling today. Hopefully to have pacemaker placed tomorrow October 26 Discussed with patient and RN Hep-Lock IV Replace potassium A.m. labs 10-26 FOR PERMANENT PACEMAKER LATER TODAY DW PATIENT AND RN MAY NEED REHAB DEPENDING ON MOBILITY AFTER PACEMAKER PT AND OT WILL NEED TO ASSESS TOMORROW AFTER PROCEDURE 10-27 SP PPM INSERTION 10-26 COMPLAINS OF SOME SORE THROAT BUT WAS INTUBATED DURING PROCEDURE YESTERDAY WANTS TO GO HOME SEEN BY PHYSICAL THERAPY CAN DC TO HOME TODAY Objective Vitals Vital Signs Date Time Temp Pulse Resp B/P (MAP) Pulse Ox O2 Delivery O2 Flow Rate FiO2 10/27/16 06:23 62 10/27/16 05:00 62 10/27/16 04:19 71 10/27/16 04:19 69 10/27/16 03:00 78 10/27/16 03:00 98.6 70 17 127/67 (87) 97 10/27/16 02:00 70 10/27/16 01:00 70 10/27/16 00:00 76 10/26/16 23:00 78 10/26/16 23:00 99.6 77 17 131/72 (91) 96 10/26/16 21:36 76 10/26/16 20:00 75 10/26/16 19:00 72 10/26/16 19:00 98.2 73 16 141/75 (97) 98 10/26/16 18:25 74 10/26/16 17:45 Nasal Cannula 2.00 10/26/16 17:29 71 10/26/16 17:00 98.7 75 20 157/70 (99) 100 Nasal Cannula 2 10/26/16 16:45 75 14 157/70 (99) 100 10/26/16 16:30 85 12 182/83 (116) 95 Nasal Cannula 2 10/26/16 16:24 98.2 84 13 191/85 (120) 100 Nasal Cannula 2 10/26/16 13:14 71 10/26/16 12:30 70 10/26/16 11:00 98.7 70 14 138/74 (95) 100 10/26/16 11:00 70 I/O 10/26/16 10/26/16 10/26/16 10/27/16 10/27/16 10/27/16 07:00 15:00 23:00 07:00 15:00 23:00 Intake Total 240 ml 240 ml 620 ml Output Total 400 ml Balance 240 ml 240 ml 220 ml Intake Oral 240 ml 240 ml 240 ml IV Total 0 ml 380 ml Output Urine Total 400 ml # Voids 2 3 # Bowel Movements 1 1 0 Result Diagram: 10/26/16 0451 10/26/16 0451 Other Results Laboratory Tests Test 10/25/16 06:26 10/26/16 04:51 White Blood Count 7.8 TH/MM3 8.9 TH/MM3 Red Blood Count 3.26 MIL/MM3 3.27 MIL/MM3 Hemoglobin 10.3 GM/DL 10.3 GM/DL Hematocrit 30.3 % 30.3 % Mean Corpuscular Volume 92.9 FL 92.7 FL Mean Corpuscular Hemoglobin 31.7 PG 31.4 PG Mean Corpuscular Hemoglobin Concent 34.1 % 33.8 % Red Cell Distribution Width 14.1 % 14.3 % Platelet Count 259 TH/MM3 320 TH/MM3 Mean Platelet Volume 7.7 FL 7.8 FL Neutrophils (%) (Auto) 56.8 % 54.8 % Lymphocytes (%) (Auto) 27.8 % 31.3 % Monocytes (%) (Auto) 12.1 % 10.9 % Eosinophils (%) (Auto) 2.8 % 2.5 % Basophils (%) (Auto) 0.5 % 0.5 % Neutrophils # (Auto) 4.4 TH/MM3 4.9 TH/MM3 Lymphocytes # (Auto) 2.2 TH/MM3 2.8 TH/MM3 Monocytes # (Auto) 0.9 TH/MM3 1.0 TH/MM3 Eosinophils # (Auto) 0.2 TH/MM3 0.2 TH/MM3 Basophils # (Auto) 0.0 TH/MM3 0.0 TH/MM3 CBC Comment DIFF FINAL AUTO DIFF Differential Comment FINAL DIFF MANUAL Blood Urea Nitrogen 9 MG/DL 10 MG/DL Creatinine 0.69 MG/DL 0.69 MG/DL Random Glucose 92 MG/DL 85 MG/DL Calcium Level 8.9 MG/DL 9.1 MG/DL Sodium Level 139 MEQ/L 138 MEQ/L Potassium Level 3.2 MEQ/L 3.8 MEQ/L Chloride Level 107 MEQ/L 108 MEQ/L Carbon Dioxide Level 21.7 MEQ/L 21.4 MEQ/L Anion Gap 10 MEQ/L 9 MEQ/L Estimat Glomerular Filtration Rate 97 ML/MIN 97 ML/MIN Differential Total Cells Counted 100 Neutrophils % (Manual) 38 % Band Neutrophils % 9 % Lymphocytes % 46 % Monocytes % 5 % Eosinophils % 1 % Neutrophils # (Manual) 4.3 TH/MM3 Metamyelocytes 1 % Atypical Lymphocytes % Total Protein 7.0 GM/DL Albumin 2.7 GM/DL Phosphorus Level 1.9 MG/DL Magnesium Level 2.1 MG/DL Alkaline Phosphatase 56 U/L Aspartate Amino Transf (AST/SGOT) 12 U/L Alanine Aminotransferase (ALT/SGPT) 10 U/L Total Bilirubin 0.2 MG/DL Hemoglobin A1c 5.1 % Free Thyroxine 1.06 NG/DL Thyroid Stimulating Hormone 3rd Gen 4.200 uIU/ML Imaging Last Impressions Chest X-Ray 10/26/16 1601 Signed Impressions: Service Date/Time: Wednesday, October 26, 2016 16:17 - CONCLUSION: No acute disease. Bert Hernandez MD FACR Carotid Artery Ultrasound 10/21/16 0000 Signed Impressions: Service Date/Time: Friday, October 21, 2016 12:02 - CONCLUSION: 1. No significant flow-limiting stenosis on the right. 2. Mild, less than 50%%, stenosis of the left internal carotid origin. 3. Antegrade vertebral artery flow bilaterally. Greg Lam MD CT Angiography 10/19/16 0037 Signed Impressions: Service Date/Time: Wednesday, October 19, 2016 01:13 - CONCLUSION: 1. Negative for pulmonary embolus. 2. Patchy perihilar airspace disease most characteristic of mild bronchopneumonia. 3. Mild to moderate centrilobular emphysema. 4. Improvement of previous peripheral lung consolidation right lower lobe with residual linear atelectasis, scarring and pleural thickening. Bryon Wolfe MD Head CT 10/18/162149 Signed Impressions: Service Date/Time: Tuesday, October 18, 2016 22:13 - CONCLUSION: No evidence of acute infarct, hemorrhage, mass or edema. Moderate atrophy Amilcar Limon MD Cervical Spine CT 10/18/162149 Signed Impressions: Service Date/Time: Tuesday, October 18, 2016 22:13 - CONCLUSION: 1. Advanced degenerative disc disease. 2. No evidence of acute fracture or subluxation. Amilcar Limon MD Objective Remarks GENERAL: Awake alert and oriented talkative and cooperative appears quite frail SKIN: Warm and dry. Intact no obvious rashes HEAD: Atraumatic. Normocephalic. EYES: Pupils equal and round. No scleral icterus. No injection or drainage. Extraocular muscles intact ENT: No nasal bleeding or discharge. Mucous membranes pink and moist. Tongue is midline NECK: Trachea midline. No JVD. Neck is supple CARDIOVASCULAR: IRRegular rate and rhythm. S1 and S2 no S3 or S4 no heave or thrill or rub or gallop PACEMAKER LEFT SIDE OF CHEST RESPIRATORY: No accessory muscle use. Clear to auscultation. Breath sounds equal bilaterally. GASTROINTESTINAL: Abdomen soft, non-tender, nondistended. Hepatic and splenic margins not palpable. MUSCULOSKELETAL: Extremities without clubbing, cyanosis, or edema. No obvious deformities. LUE IN [place] NEUROLOGICAL: Awake and alert. No obvious cranial nerve deficits. Motor grossly within normal limits. 4 out of 5 muscle strength in the arms and legs. Normal speech. PSYCHIATRIC: Appropriate mood and affect; insight and judgment normal. Procedures PPM 9-18 Medications and IVs Current Medications Potassium Bicarb/ Potassium Chloride (K-Lyte Cl Eff) 50 meq ONCE ONCE PO ; Start 10/18/16 at 23:15; Stop 10/18/16 at 23:16; Status DC Sodium Chloride 500 ml @ 500 mls/hr BOLUS ONCE IV Last administered on 23:49; Start 10/18/16 at 23:45; Stop 10/19/16 at 00:44; Status DC Ondansetron HCl (Zofran Inj) 4 mg ONCE ONCE IV PUSH Last administered on 23:49; Start 10/18/16 at 23:45; Stop 10/18/16 at 23:46; Status DC Sodium Chloride (NS Flush) 2 ml UNSCH PRN IV FLUSH FLUSH AFTER USING IV ACCESS ; Start 10/19/16 at 01:00 Sodium Chloride (NS Flush) 2 ml BID IV FLUSH Last administered on 10/27/16 09: 51; Start 10/19/16 at 09:00 Naloxone HCl (Narcan Inj) 0.4 mg UNSCH PRN IV SEE LABEL COMMENTS; Start at 01:00 Iohexol (Omnipaque 350 Inj) 75 ml STK-MED ONCE IVCONTRAST ; Start 10/19/16 at 01 :15; Stop 10/19/16 at 01:16; Status DC Nitroglycerin (Nitrostat Sl) 0.4 mg ONCE ONCE SL Last administered on 01:25; Start 10/19/16 at 01:30; Stop 10/19/16 at 01:31; Status DC Nitroglycerin (Nitroglycerin 2% Oint) 1 inch ONCE ONCE TOPICAL Last administered on 10/19/16 02:05; Start 10/19/16 at 01:30; Stop 10/19/16 at 01:31 ; Status DC Aspirin (Aspirin Chew) 162 mg DAILY CHEW Last administered on 10/27/16 09:51; Start 10/19/16 at 09:00 Famotidine 20 mg/ Sodium Chloride 100 ml @ 4 mls/hr STAT STAT IV Last administered on 10/19/16 01:25; Start 10/19/16 at 01:23; Stop 10/20/16 at 02:22 ; Status DC Piperacillin Sod/ Tazobactam Sod 100 ml @ 200 mls/hr Q6H IV Last administered on 10/19/16 08:43; Start 10/19/16 at 02:00; Stop 10/19/16 at 15:07; Status DC Enoxaparin Sodium (Lovenox Inj) 40 mg Q24H SQ Last administered on 10/21/16 05 :06; Start 10/19/16 at 06:00; Stop 10/21/16 at 23:00; Status DC Albuterol/ Ipratropium (Duoneb Neb) 1 ampule Q2HR NEB PRN NEB wheezing; Start 10/19/16 at 03:45 Albuterol/ Ipratropium (Duoneb Neb) 1 ampule Q6HR NEB NEB Last administered on 10/22/16 20:36; Start 10/19/16 at 04:00; Stop 10/23/16 at 03:59; Status DC Piperacillin Sod/ Tazobactam Sod 50 ml @ 200 mls/hr Q6H IV Last administered on 10/22/16 16:00; Start 10/19/16 at 16:00; Stop 10/22/16 at 18:48; Status DC Potassium Chloride (KCl) 40 meq ONCE ONCE PO Last administered on 10/20/16 15 :52; Start 10/20/16 at 15:45; Stop 10/20/16 at 15:46; Status DC Potassium Chloride 100 ml @ 50 mls/hr BOLUS ONCE IV Last administered on 10/20 15:53; Start 10/20/16 at 16:00; Stop 10/20/16 at 17:59; Status DC Metronidazole (Flagyl) 500 mg Q8HR PO Last administered on 10/27/16 04:59; Start 10/21/16 at 14:00 Sodium Chloride 1,000 ml @ 125 mls/hr Q8H IV Last administered on 10/26/16 16 :50; Start 10/22/16 at 08:00 Cefazolin Sodium 1000 mg/Sodium Chloride 250 ml @ 0 mls/hr ONCE ONCE IV ; Start 10/22/16 at 14:00; Stop 10/22/16 at 14:01; Status DC Vancomycin HCl 1000 mg/Sodium Chloride 250 ml @ 0 mls/hr PRO SHOP ATTENDANT IV ; Start at 14:00 Povidone Iodine (Betadine 5% Antisepsis Kit) 1 applic ONCE TOPICAL ; Start 10/21 at 14:30; Stop 10/21/16 at 23:59; Status DC Mupirocin (Bactroban Nasal 2% Oint) 1 applic ONCE EACH NARE ; Start 10/21/16 at 14:30; Stop 10/21/16 at 23:59; Status DC Chlorhexidine Gluconate (Chlorhexidine 2% Cloth) 1 pack ONCE TOPICAL ; Start at 14:30; Stop 10/21/16 at 23:59; Status DC Sodium Chloride 1,000 ml @ 125 mls/hr Q8H IV ; Start 10/26/16 at 05:00; Stop at 05:00; Status DC Cefazolin Sodium 1000 mg/Sodium Chloride 250 ml @ 0 mls/hr ONCE ONCE IV Last administered on 10/26/16 12:30; Start 10/26/16 at 12:30; Stop 10/26/16 at 12:31 ; Status DC Vancomycin HCl 1000 mg/Sodium Chloride 250 ml @ 0 mls/hr ONCE ONCE IV Last administered on 9/18/17at 12:30; Start 10/26/16 at 12:30; Stop 10/26/16 at 12:31 ; Status DC Povidone Iodine (Betadine 5% Antisepsis Kit) 1 applic ONCE ONCE TOPICAL Last administered on 10/26/16 05:02; Start 10/25/16 at 20:00; Stop 10/25/16 at 20:01 ; Status DC Mupirocin (Bactroban Nasal 2% Oint) 1 applic ONCE ONCE EACH NARE Last administered on 10/25/16 20:00; Start 10/25/16 at 20:00; Stop 10/25/16 at 20:01 ; Status DC Chlorhexidine Gluconate (Chlorhexidine 2% Cloth) 1 pack ONCE ONCE TOPICAL Last administered on 10/26/16 05:03; Start 10/25/16 at 20:00; Stop 10/25/16 at 20:01; Status DC Potassium Chloride (KCl) 40 meq ONCE ONCE PO Last administered on 10/25/16 12 :33; Start 10/25/16 at 11:15; Stop 10/25/16 at 11:24; Status DC Potassium Chloride (KCl) 40 meq ONCE ONCE PO Last administered on 10/25/16 14 :02; Start 10/25/16 at 13:15; Stop 10/25/16 at 13:16; Status DC Magnesium Sulfate/ Dextrose 100 ml @ 100 mls/hr Q1H IV Last administered on 14:02; Start 10/25/16 at 11:15; Stop 10/25/16 at 13:14; Status DC Vancomycin HCl (Vancomycin Inj) 1,000 mg STK-MED ONCE .ROUTE ; Start 10/26/16 at 14:09; Stop 10/26/16 at 14:10; Status DC Sodium Chloride 250 ml @ As Directed STK-MED ONCE .ROUTE ; Start 10/26/16 at 14 :09; Stop 10/26/16 at 14:10; Status DC Lidocaine HCl (Xylocaine 2% Inj) 50 ml STK-MED ONCE .ROUTE ; Start 10/26/16 at 14:15; Stop 10/26/16 at 14:16; Status DC Vancomycin HCl 1000 mg/Sodium Chloride 250 ml @ 0 mls/hr ONCE IV ; Start at 05:00; Stop 10/27/16 at 05:00; Status DC Tramadol HCl (Ultram) 50 mg Q6HR PRN PO PAIN SCALE 4 TO 10; Start 10/26/16 at 16:15; Stop 10/26/16 at 16:28; Status DC Diltiazem HCl (Cardizem Cd) 180 mg DAILY PO ; Start 10/26/16 at 16:15; Stop at 16:46; Status DC Vancomycin HCl 1000 mg/Sodium Chloride 250 ml @ 250 mls/hr ONCE ONCE IV Last administered on 10/27/16 03:53; Start 10/27/16 at 05:00; Stop 10/27/16 at 05:59 ; Status DC Acetaminophen (Tylenol) 650 mg Q6H PRN PO PAIN SCALE 1 TO 10 Last administered on 10/26/16 19:34; Start 10/26/16 at 16:30 Diltiazem HCl (Cardizem Cd) 180 mg DAILY PO Last administered on 10/27/16 09: 51; Start 10/26/16 at 18:00 Miscellaneous Information ALL NURSING DEPARTME... UNSCH PRN .XX SEE LABEL COMMENTS; Start 10/26/16 at 16:20; Stop 10/27/16 at 16:19 Labetalol HCl (Trandate Inj) 10 mg Q20M PRN IV PUSH SBP>160, DBP>90; Start at 18:45 Hydralazine HCl (Apresoline Inj) 10 mg Q30M PRN IV PUSH SBP>160, DBP>90; Start 10/26/16 at 18:45 Phenol (Chloraseptic [place]) 2 spray Q2H PRN OROPHARYNG sore throat Last administered on 10/26/16 19:38; Start 10/26/16 at 18:45 Clonidine (Catapres) 0.1 mg Q4H PRN PO SBP>160, DBP>90 Last administered on 19:33; Start 10/26/16 at 18:45 Urinary Catheter: No Vascular Central Line Catheter: No A/P Problem List: (1) Acute bronchopneumonia ICD Code: J18.0 - Bronchopneumonia, unspecified organism (2) Nausea & vomiting ICD Code: R11.2 - Nausea with vomiting, unspecified (3) Diarrhea ICD Code: R19.7 - Diarrhea Status: Resolved (4) Atypical chest pain ICD Code: R07.89 - Other chest pain Assessment and Plan Acute bronchopneumonia/diarrhea/fever - CT pulmonary angiogram negative for pulmonary embolus but shows patchy perihilar airspace disease most characteristic mild bronchopneumonia; mild to moderate centrilobular emphysema - antibiotics:s/p Zosyn. now on flagyl due to C. Diff. ID following. - initial blood cultures neg to date. - continue Duo nebulizers q6h scheduled and every 4 hours as needed for wheezing - Supplemental oxygen via nasal cannula titrated to maintain oxygen saturation greater than 92% - encourage use of IS q1hr while awake syncope: cardiology following, concerns for sick sinus syndrome, intermittent episodes of asystole, as documented on her loop recorder. carotid u/s no stenosis on the right and <50% on the left. ECHO w EF 45-50%. Review report. Pt schedule tentatively for permanent pacemaker wednesday in pm, however pt wishes to speak w her dobby looms pegger but doesn't know who it is but son does. She will ask him and notify RN who it is. To be discussed w pt's dob[employer] lo[employer] pegger on wednesday as pt wishes to have his opinion. Hopefully her C.diff improves by then in the event she choses to proceed w the procedure in the PM. TO HAVE PACER PLACED 10-26 Nausea/vomiting/diarrhea/abdominal pain/weight loss - c. difficile toxin pos. on flagyl - Stool enteric pathogens neg other stool studies still pending. GI following. Chest pain - Resolved, cardiac enzymes neg x 3 - cards following. Hypokalemia Will replace Check a.m. labs DVT prophylaxis - Lovenox 40 mg subq q24h Discharge Planning continue po flagyl tentative permanent pacemaker on wednesday however pt would like to speak w her own dobby lo[employer] pegger wednesday morning to decide if she would like to proceed w pacemaker. FOR PACEMAKER LATER TODAY 10-26 BOARDERLINE HYPOTHYROIDISM- HOLD OFF ON REPLACEMENT PT AND OT TODAY DC TO HOME WITH [facility] Bert Campoverde DO Oct 27, 2016 10:21
[2016-10-27] MEDS ORDERED: METR-1 PO (10:28)
[2016-10-27] MEDS ORDERED: ASPI81CH25 CHEW (10:28)
[2016-10-27] MEDS ORDERED: CARD180C5 PO (10:28)
[2016-10-27] MEDS ORDERED: MIRTA15 PO (10:28)
[2016-10-27] MEDS ORDERED: PHEN1.4%S OROPHARYNG (10:28)
[2016-10-27] MEDS ORDERED: XARE20TA PO (10:28)
--- NOTE | 2016-10-27 10:31 | HHI.FF ---
Face to Face Verification Diagnosis: (1) Status post placement of cardiac pacemaker (2) HTN (hypertension) (3) Atypical chest pain (4) Diarrhea (5) Failure to thrive in adult (6) Hyperlipidemia (7) Diabetes mellitus (8) Diarrheal stools (9) Multiple pulmonary emboli (10) History of pulmonary embolus (PE) (11) Diabetes mellitus (12) Hypertension (13) Hypercoagulable state Physical Therapy Order: Evaluate and Treat, Improve ambulation, Strength and gait training Occupational Therapy Order: Evaluate and Treat, Gross motor coordination, Fine motor coordination Home Health Nursing Order: Medical education Signs/symptoms of disease process Wound care and dressing changes Nursing assessment with vital signs Telehealth Home Health Aide Order: To Assist In: Bathing and personal care, director private music therapy agency and meal prep I have seen patient Annamaria Benitez on 10/27/16. My clinical findings support the need for the requested home health care services because: Ltd mobility - disease progression Patient has SOB Med compliance is questionable Need for psychosocial assistance I certify that my clinical findings support that this patient is homebound because: Post-op weakness Bert Campoverde DO Oct 27, 2016 10:31
--- NOTE | 2016-10-27 10:47 | HHI.DS ---
Discharge Summary Admission Date Oct 19, 2016 at 13:42 Discharge Date: Oct 27, 2016 Admitting Diagnosis vomiting and diarrhea, hypokalemia, dehydration, chest pain (1) Acute bronchopneumonia ICD Code: J18.0 - Bronchopneumonia, unspecified organism Diagnosis: Secondary (2) Nausea & vomiting ICD Code: R11.2 - Nausea with vomiting, unspecified Diagnosis: Secondary (3) Diarrhea ICD Code: R19.7 - Diarrhea Diagnosis: Principal Status: Resolved (4) Atypical chest pain ICD Code: R07.89 - Other chest pain Diagnosis: Secondary Procedures PPM 10-26 Brief History - From Admission The patient states that her son brought her to the hospital following a syncopal episode in the bathroom. She says she's had periumbilical abdominal pain for a few days accompanied by diarrhea for at least a week occurring 3-4 times per day. She's had some nausea with vomiting since yesterday morning. She is unable to state whether the stool is black or bloody because she "doesn't look at it". She says she was sitting on the toilet and experiencing abdominal pain when she fell on the floor and lost consciousness. She said she did have some chest pain prior to the episode. She also reports having chest pain while taking a deep breath in the hospital. CT pulmonary angiogram was negative in the ED. She denies any unilateral weakness. She states she was not confused upon awakening from syncopal episode. She states she is unsure whether or not she was incontinent of urine or bowel. She is also not sure whether or not she had fevers. She denies black or coffee-colored emesis or hematemesis. She also reports losing nearly 50 pounds over the last year unintentionally due to poor appetite. CBC/BMP: 10/26/16 0451 10/26/16 0451 Significant Findings Laboratory Tests Test 10/25/16 06:26 10/26/16 04:51 Red Blood Count 3.26 MIL/MM3 (4.00-5.30) 3.27 MIL/MM3 (4.00-5.30) Hemoglobin 10.3 GM/DL (11.6-15.3) 10.3 GM/DL (11.6-15.3) Hematocrit 30.3 % (35.0-46.0) 30.3 % (35.0-46.0) Monocytes (%) (Auto) 12.1 % (0.0-8.0) 10.9 % (0.0-8.0) Potassium Level 3.2 MEQ/L (3.5-5.1) Monocytes # (Auto) 1.0 TH/MM3 (0-0.9) Band Neutrophils % 9 % (0-6) Lymphocytes % 46 % (9-44) Albumin 2.7 GM/DL (3.4-5.0) Phosphorus Level 1.9 MG/DL (2.5-4.9) Aspartate Amino Transf (AST/SGOT) 12 U/L (15-37) Chloride Level 108 MEQ/L (98-107) Thyroid Stimulating Hormone 3rd Gen 4.200 uIU/ML (0.358-3.740) Imaging Last Impressions Chest X-Ray 10/26/16 1601 Signed Impressions: Service Date/Time: Wednesday, October 26, 2016 16:17 - CONCLUSION: No acute disease. Bert Hernandez MD FACR Carotid Artery Ultrasound 10/21/16 0000 Signed Impressions: Service Date/Time: Friday, October 21, 2016 12:02 - CONCLUSION: 1. No significant flow-limiting stenosis on the right. 2. Mild, less than 50%%, stenosis of the left internal carotid origin. 3. Antegrade vertebral artery flow bilaterally. Greg Lam MD CT Angiography 10/19/16 0037 Signed Impressions: Service Date/Time: Wednesday, October 19, 2016 01:13 - CONCLUSION: 1. Negative for pulmonary embolus. 2. Patchy perihilar airspace disease most characteristic of mild bronchopneumonia. 3. Mild to moderate centrilobular emphysema. 4. Improvement of previous peripheral lung consolidation right lower lobe with residual linear atelectasis, scarring and pleural thickening. Bryon Wolfe MD Head CT 10/18/16 2150 Signed Impressions: Service Date/Time: Tuesday, October 18, 2016 22:13 - CONCLUSION: No evidence of acute infarct, hemorrhage, mass or edema. Moderate atrophy Amilcar Limon MD Cervical Spine CT 10/18/162149 Signed Impressions: Service Date/Time: Tuesday, October 18, 2016 22:13 - CONCLUSION: 1. Advanced degenerative disc disease. 2. No evidence of acute fracture or subluxation. Amilcar Limon MD PE at Discharge GENERAL: Awake alert and oriented talkative and cooperative appears quite frail SKIN: Warm and dry. Intact no obvious rashes HEAD: Atraumatic. Normocephalic. EYES: Pupils equal and round. No scleral icterus. No injection or drainage. Extraocular muscles intact ENT: No nasal bleeding or discharge. Mucous membranes pink and moist. Tongue is midline NECK: Trachea midline. No JVD. Neck is supple CARDIOVASCULAR: IRRegular rate and rhythm. S1 and S2 no S3 or S4 no heave or thrill or rub or gallop PACEMAKER LEFT SIDE OF CHEST RESPIRATORY: No accessory muscle use. Clear to auscultation. Breath sounds equal bilaterally. GASTROINTESTINAL: Abdomen soft, non-tender, nondistended. Hepatic and splenic margins not palpable. MUSCULOSKELETAL: Extremities without clubbing, cyanosis, or edema. No obvious deformities. LUE IN SLING NEUROLOGICAL: Awake and alert. No obvious cranial nerve deficits. Motor grossly within normal limits. 4 out of 5 muscle strength in the arms and legs. Normal speech. PSYCHIATRIC: Appropriate mood and affect; insight and judgment normal. Hospital Course The patient states that her son brought her to the hospital following a syncopal episode in the bathroom. She says she's had periumbilical abdominal pain for a few days accompanied by diarrhea for at least a week occurring 3-4 times per day. She's had some nausea with vomiting since yesterday morning. She is unable to state whether the stool is black or bloody because she "doesn't look at it". She says she was sitting on the toilet and experiencing abdominal pain when she fell on the floor and lost consciousness. She said she did have some chest pain prior to the episode. She also reports having chest pain while taking a deep breath in the hospital. CT pulmonary angiogram was negative in the ED. She denies any unilateral weakness. She states she was not confused upon awakening from syncopal episode. She states she is unsure whether or not she was incontinent of urine or bowel. She is also not sure whether or not she had fevers. She denies black or coffee-colored emesis or hematemesis. She also reports losing nearly 50 pounds over the last year unintentionally due to poor appetite. SEEN BY GI AND CARDIO HAS C.DIFFICILE COLITIS ON FLAGYL SP PPM 10-26- WANTS TO GO HOME Pt Condition on Discharge: Good Discharge Disposition: Disch w/ Home Health Serv Discharge Time: > 30 minutes Discharge Instructions DIET: Follow Instructions for: Heart Healthy Diet, Diabetic Diet Activities you can perform: See Additionl Instruction Other Activity Instructions: PACEMAKER RESTRICTIONS Follow up Referrals: Cardiology - 1 Week with Chris Johnson MD Gastroenterology - 2 Weeks with Kirby Abraham MD PCP Follow-up - 1 Week New Medications: Aspirin (Aspirin Low Strength) 81 Mg Chew 162 MG CHEW DAILY for Blood Clot Prevention, #30 EA Diltiazem CD 24 HR (Cardizem CD 24 HR) 180 Mg Caper 180 MG PO DAILY for Blood Pressure Management, #30 CAP Metronidazole (Flagyl) 500 Mg Tab 500 MG PO Q8HR for Infection, #63 TAB Phenol (Phenaseptic) 1.4 % Spr 2 SPRAY OROPHARYNG Q2H PRN for sore throat, #1 BOTTLE Changed Medications: Rivaroxaban (Xarelto) 20 Mg Tab 20 MG PO DAILY for Blood Clot Prevention, #30 TAB 0 Refills (Medication details modified) START ON OCT 28 Continued Medications: Atorvastatin (Atorvastatin) 20 Mg Tab 20 MG PO DAILY for Cholesterol Management, #30 TAB 0 Refills Mirtazapine (Mirtazapine) 15 Mg Tab 15 MG PO HS for Depression Control, #30 TAB 0 Refills (This prescription has been renewed) Bert Campoverde DO Oct 27, 2016 10:47
--- NOTE | 2016-10-27 23:17 | MP ---
cc: JOSEPH XIONG DATE OF SURGERY 10/27/16 PROCEDURE Single chamber permanent pacemaker implantation via the left subclavian vein. INDICATIONS Recurrent syncope, episodes of asystole documented by loop recorder tracings. OPERATIVE NOTE The patient was brought to the operating suite in a fasting state after having signed informed consent. The left upper chest was prepped and draped as per policy and anesthetized with 1% lidocaine. Central venous access was obtained via the left subclavian vein using modified Seldinger technique after administration of 10 mL of contrast through a left arm peripheral IV. A transverse incision was made inferior to the left clavicle and using blunt dissection a subcutaneous pocket was formed down to the pectoralis fascia. Over the guidewire, a 6-Slovenian sheath was placed and through this sheath a ventricular active fixation lead was introduced and its tip positioned in the right ventricular apex where good current of injury, stimulation threshold (0.8 volts) and sensitivity (7.3 mV) were demonstrated. This lead was secured into place using 2-0 silk ties down to the pectoralis fascia. The lead was then connected to the pacemaker generator which is a Biotronik Eluna device. The lead and the generator were placed back into the subcutaneous pocket which was closed using 3-0 Vicryl interrupted stitches in two layers to close the subcutaneous tissue and then 4-0 Monocryl running stitch to close the subcuticular tissue. Overlapping Steri-Strips and a pressure dressing were applied. There were no apparent immediate complications. A portable chest x-ray is pending at the time of this dictation. CONCLUSION Successful single chamber permanent pacemaker implantation via the left subclavian vein using a Biotronik Eluna pacemaker generator. MD BRITTANY Peralta/ /3:57 PM /11:06 PM OPAL
== END 2016-10-27 13:04 | disposition home health service (06) | DRG 242 ==
LOC: NEPC 21:29 → INTOOBSV 10-19 00:31 → NEDA 10-19 00:31 → NEPFCDU 10-19 03:04 → OBSVTOIN 10-19 13:42 → HCIS 10-21 23:33 → UNDODISIN 10-26 14:53
PROVIDERS: ADMIT Hospitalist; ATTEND Hospitalist
PROC: 02HK3JZ Insertion of Pacemaker Lead into Right Ventricle, Percutaneous Approach (ICD-10-PCS; 2016-10-26)
PROC: 0JH604Z Insertion of Pacemaker, Single Chamber into Chest Subcutaneous Tissue and Fascia, Open Approach (ICD-10-PCS; principal; 2016-10-26 14:00)
DX: I49.5 Sick sinus syndrome (principal); J18.0 Bronchopneumonia, unspecified organism; I46.9 Cardiac arrest, cause unspecified; A04.7 Enterocolitis due to Clostridium difficile; E86.0 Dehydration; F03.90 Unspecified dementia, unspecified severity, without behavioral disturbance, psychotic disturbance, mood disturbance, and anxiety; I47.1 Supraventricular tachycardia; J98.11 Atelectasis; R07.89 Other chest pain; E87.6 Hypokalemia; R63.0 Anorexia; J43.2 Centrilobular emphysema; R55 Syncope and collapse; E11.9 Type 2 diabetes mellitus without complications; E78.5 Hyperlipidemia, unspecified; I10 Essential (primary) hypertension; M19.90 Unspecified osteoarthritis, unspecified site; Z87.891 Personal history of nicotine dependence; Z86.711 Personal history of pulmonary embolism; Z86.718 Personal history of other venous thrombosis and embolism; W18.11XA Fall from or off toilet without subsequent striking against object, initial encounter
CPT/HCPCS: 33207; 36600; 70450; 71010; 71275; 72125; 80048; 80053; 81001; 82550; 82805; 82948; 83036; 83690; 83735; 83880; 84100; 84439; 84443; 84484; 85007; 85025; 85027; 85610; 85730; 87040; 87086; 87205; 87328; 87329; 87493; 87506; 93005; 93306; 93880; 94150; 94640; 94664; 96361; 96374; C1786; C1898; G8987-GP; G8988-GP; J0690; J1650; J2405; J2543; J3370; J3475; J3480; J7030; J7040; J7050; P9612; Q9967